=== PATIENT | female | born 1970 ===

== ENCOUNTER → 2020-07-24 10:49 | Outpatient (BNVA) | payer OTHER, SELFPAY | PROVIDERS: PCP Family Medicine; Referring Provider Family Medicine; Visit Provider Nurse Practitioner | DX: K31.9 Disease of stomach and duodenum, unspecified (principal); R10.11 Right upper quadrant pain; K37 Unspecified appendicitis; Z79.899 Other long term (current) drug therapy | CPT/HCPCS: 99213; Q3014 ==

== ENCOUNTER → 2021-02-01 13:05 | Outpatient (BNVA) | payer OTHER, SELFPAY | PROVIDERS: PCP Family Medicine; Visit Provider Nurse Practitioner | DX: R10.11 Right upper quadrant pain (principal); K37 Unspecified appendicitis; K31.9 Disease of stomach and duodenum, unspecified | CPT/HCPCS: 99212; Q3014 ==

== ENCOUNTER → 2021-02-19 13:12 | Outpatient (BNVA) | payer OTHER, SELFPAY | PROVIDERS: PCP Internal Medicine; Visit Provider Orthopaedic Surgery | DX: M17.0 Bilateral primary osteoarthritis of knee (principal) | CPT/HCPCS: Q3014 ==

== ENCOUNTER 2021-03-26 15:59 | Outpatient (REF) | payer OTHER, SELFPAY ==
--- NOTE | ~2021-03-26 | XR_ITS ---
EXAMINATION: XR BILATERAL KNEES CLINICAL INFORMATION: Bilateral knee pain. COMPARISON: 05/02/2020 TECHNIQUE: 4 views each knee. FINDINGS: Right Knee: There are tricompartmental degenerative changes involving the right knee with ojfoyqrp-ca-eifroe narrowing medially as well as in the patellofemoral compartment. Sclerosis and osteophytes are present. No fractures are seen. No joint effusion is seen. When comparison is made to the limited views obtained previously, findings appear similar. Left Knee: There are tricompartmental degenerative changes involving the left knee with kexdpqok-hj-dtqnkh narrowing medially as well as in the patellofemoral compartment. Sclerosis and osteophytes are present. No fractures are seen. A small left joint effusion is present. Again noted is a loose body posteriorly as well as possibly a loose body anteriorly between the patella and distal femur. The latter was not well appreciated on the prior study. XR/XR knee LT 4V IMPRESSION: Tricompartmental osteoarthritis both knees, left greater than right with small left effusion and left loose bodies.
--- NOTE | ~2021-03-26 | XR_ITS ---
EXAMINATION: XR BILATERAL KNEES CLINICAL INFORMATION: Bilateral knee pain. COMPARISON: 05/02/2020 TECHNIQUE: 4 views each knee. FINDINGS: Right Knee: There are tricompartmental degenerative changes involving the right knee with faeckqlh-lv-txkvov narrowing medially as well as in the patellofemoral compartment. Sclerosis and osteophytes are present. No fractures are seen. No joint effusion is seen. When comparison is made to the limited views obtained previously, findings appear similar. Left Knee: There are tricompartmental degenerative changes involving the left knee with qpacisoh-gx-apvfav narrowing medially as well as in the patellofemoral compartment. Sclerosis and osteophytes are present. No fractures are seen. A small left joint effusion is present. Again noted is a loose body posteriorly as well as possibly a loose body anteriorly between the patella and distal femur. The latter was not well appreciated on the prior study. XR/XR knee RT 4V IMPRESSION: Tricompartmental osteoarthritis both knees, left greater than right with small left effusion and left loose bodies.
== END 2021-03-26 16:00 | disposition home or self-care (01) ==
LOC: HO.XRAY 15:59
PROVIDERS: PCP Internal Medicine; Visit Provider Internal Medicine
DX: M25.561 Pain in right knee (principal); M25.562 Pain in left knee
CPT/HCPCS: 73564

== ENCOUNTER → 2021-05-29 12:24 | Outpatient (BNVA) | payer OTHER, SELFPAY | PROVIDERS: PCP Internal Medicine; Visit Provider Orthopaedic Surgery | DX: M17.0 Bilateral primary osteoarthritis of knee (principal) | CPT/HCPCS: 20610; 99212; J1040 ==

== ENCOUNTER → 2021-08-05 16:14 | Outpatient (BNVA) | payer OTHER, SELFPAY | PROVIDERS: PCP Internal Medicine; Visit Provider Nurse Practitioner ==

== ENCOUNTER 2022-04-01 10:42 | Emergency (ER) | payer OTHER, SELFPAY ==
[2022-04-01 10:51] VITALS: BP 191/86; PULSE 76; RESP 18; TEMP 36.6; O2SAT 100; BMI 33.0
--- NOTE | 2022-04-01 10:53 | ECG_ITS ---
Test Reason : HYPERTENSION Blood Pressure : / mmHG Vent. Rate : 074 BPM Atrial Rate : 074 BPM P-R Int : 152 ms QRS Dur : 088 ms QT Int : 424 ms P-R-T Axes : 042 -07 031 degrees QTc Int : 470 ms Normal sinus rhythm Moderate voltage criteria for LVH, may be normal variant ( R in aVL , [place] product ) Nonspecific ST and T wave abnormality Abnormal ECG When compared to the previous EKG of No significant changes seen Referred By: Generic ED Physician Electronically Signed By:SHIRAZ HENSON MD
[2022-04-01 11:16] LABS: MANUAL DIFF FLAG NO
[2022-04-01 11:22] LABS: Basophils Percent Auto 0.5 % (0-2); Eosinophils Absolute Auto 0.3 X10*3/uL (0.0-0.4); Eosinophils Percent Auto 3.9 % (0-4); Hemoglobin 7.4 g/dl (12.0-16.0); Imm Gran Abs Auto 0.02 X10*3/uL (0.00-0.03); Imm Gran Pct Auto 0.3 % (0.0-0.4); Lymphocytes Absolute Auto 2.4 X10*3/uL (1.2-4.9); Lymphocytes Percent Auto 30.7 % (20-40); Mean Corpuscular HGB Conc 29.6 g/dl (31.0-35.0); Mean Corpuscular Hemoglobin 22.1 pg (27.0-33.0); Mean Corpuscular Volume 74.6 fL (80.0-98.0); Mean Platelet Volume 10.5 fL (9.4-12.3); Monocytes Absolute Auto 0.6 X10*3/uL (0.1-1.2); Monocytes Percent Auto 7.7 % (2-11); Neutrophils Absolute Auto 4.5 x10*3/uL (2.0-8.3); Neutrophils Percent Auto 56.9 % (45-73); Platelet Count 446 X10*3/uL (160-400); Red Blood Count 3.35 X10*6/uL (4.20-5.50); Red Cell Distribution Width 18.6 % (11.0-16.0)
[2022-04-01 11:36] LABS: Anion Gap 12 (12-20); Blood Urea Nitrogen 10 mg/dL (9-16); Carbon Dioxide 24 mmol/L (22-29); Chloride 103 mmol/L (96-108); Creatinine Clr Calc Pharmacy 102.9; Estimated Glomerular Filt Rate > 60; Glucose Random 100 mg/dL (60-115); Potassium 3.7 mmol/L (3.3-5.1); Sodium 135 mmol/L (135-145)
[2022-04-01 11:41] VITALS: BP 189/99; PULSE 68; RESP 16; O2SAT 99
[2022-04-01 11:44] LABS: Troponin-I High Sensitivity < 3.5 ng/L (<3.5-17.0)
--- NOTE | 2022-04-01 11:45 | ED_ITS ---
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 Patient also is complaining of left neck pain that radiating down to left upper extremities with numbness and in a left 4th and 5th finger, declined any recent trauma to the neck or recent heavy lifting. Patient has been getting heavy menses reportedly, her hemoglobin was low when was checked by PCP yesterday (7), patient had slight lightheadedness, but no chest pain or shortness of breath. Patient stated that her menses stopped yesterday and she is not vaginally bleeding, patient was instructed by her PCP to follow-up with her OBGYN and started her on iron yesterday. Related Data Home Medications Medication Instructions Recorded Confirmed losartan 100 mg tablet 100 mg PO DAILY 07/21/20 acetaminophen 650 mg 1,300 mg PO Q8H PRN 07/24/20 tablet,extended release amlodipine 10 mg tablet 10 mg PO DAILY 07/24/20 ergocalciferol (vitamin D2) 1,250 0 mcg PO 07/24/20 mcg (50,000 unit) capsule multivitamin 1 cap PO DAILY 07/24/20 ferrous sulfate 325 mg (65 mg 325 mg PO BID 08/05/21 iron) tablet (FeroSul) nifedipine 30 mg tablet,extended 30 mg PO DAILY 08/05/21 release 24 hr Previous Rx's Medication Instructions Recorded omeprazole 40 mg capsule,delayed 40 mg PO DAILY 30 days #30 caps 08/05/21 release sennosides 8.6 mg capsule (senna) 17.2 mg PO BEDTIME constipation 30 08/05/21 days #60 caps Allergies Allergy/AdvReac Type Severity Reaction Status Date / Time No Known Allergies Allergy Verified 08/05/21 16:15 [No Known Allergies*] Review of Systems Review of Systems: All other systems are reviewed and are negative Constitutional: Reports as per HPI and Reports no additional constitutional complaints Eyes: Reports as per HPI and Reports no additional eye complaints Reports system reviewed and no additional complaints, except as documented Cardiovascular: Reports as per HPI and Reports no additional cardiovascular complaints Respiratory: Reports as per HPI and Reports no additional respiratory complaints Gastrointestinal: Reports as per HPI and Reports no additional gastrointestinal complaints Genitourinary: Reports no additional female genitourinary complaints Musculoskeletal: Reports no additional musculoskeletal complaints Skin/Breast: Reports system reviewed and no additional complaints, except as docu Psychiatric: Reports no additional psychiatric complaints Endocrine: Reports no additional endocrine complaints Hematologic/Lymphatic: Reports no additional hematologic/lymphatic complaints Allergic/Immunologic: Reports no additional allergic/immunologic complaints Reports system reviewed and no additional complaints, except as documented and Reports Abnormal speech present [facility] Past Medical History Medical History Appendicitis Gastropathy Right upper quadrant abdominal pain Surgical History History of section History of cholecystectomy Hx of tubal ligation Family History Family History Father No problems noted. Mother HTN (hypertension), benign Social History Social History Alcohol intake: never Patient Tobacco Use Status: Never used Tobacco Use of substances other than those prescribed or required for medical reasons: No Advance Directives: No Advance Directives Information Provided: No Patient : No Physical Exam ED Vital Signs: Vital Signs - 24 hr 04/01/22 10:51 04/01/22 11:41 Temperature 98 F Pulse Rate 76 68 Respiratory Rate 18 16 Blood Pressure 191/86 H 189/99 H Pulse Oximetry 100 99 Oxygen Delivery Method Room Air Room Air BMI result Body Mass Index 33.0 Vital signs have been reviewed as appeared to be correct. Blood pressure normal. Heart rate normal. Respiration rate normal. Temperature normal. Oxygen saturation normal. Appearance: Alert. Oriented X3. No acute distress. Head: Normal external exam. Normocephalic. Atraumatic. No [place] signs noted. No raccoon eyes noted Eyes: PERRLA. EOMI. Conjunctiva and sclera normal. Eyelids normal. ENT: TM's Normal. Pharynx normal. Uvula midline. Moist mucous membranes. No trismus noted. No drooling noted. No muffled voice noted. Neck: Normal inspection. Neck supple. FROM. No adenopathy. Thyroid Normal. No meningeal signs. No neck mass noted. CVS: Normal heart rate and rhythm. Heart sound normal. No murmurs noted. Pulses normal throughout. Respiratory: No respiratory distress. Painless inspiration. Breath sounds normal. No wheezes/rales/rhonchi noted. Chest nontender. No accessory muscle usage noted or decreased air movement noted. Abdomen: Soft and nontender. Bowel sounds normal in all 4 quadrants. No distention noted. No organomegaly noted. No visible injury noted. Back: No CVA tenderness. Full range of motion noted. Skin: Skin warm and dry. Normal skin color. Normal skin turgor. No rash es/lesions/lacerations noted. Extremities: No lower extremity edema. Extremities exhibit normal range of motion. Extremities nontender. Neuro: Oriented X 3. Cranial nerve exam: II-XII are grossly intact No motor deficit. No sensory deficit. Reflexes normal. Course Course Course Narrative: Assessment and plan. 51-year-old female with iron deficiency anemia secondary to vaginal bleeding, lele gregory reported that the vaginal bleed. Yesterday not bleeding today and she has been getting prolonged menses with heavy bleeding, patient declined GI bleeding or vomiting blood. Patient was instructed to follow-up with her PCP/gynaecological oncologist for serial CBC and further evaluation of her menorrhagia. Blood pressure now is 150/ 80. Medical Decision Making Lab Data Lab results reviewed: Yes I reviewed the patient's lab results. Result diagrams: 04/01/22 11:07 04/01/22 11:07 Labs: Lab Results 04/01/22 04/01/22 04/01/22 Range/Units 11:07 11:07 11:07 WBC 8.0 (4.8-10.8) X10*3/uL RBC 3.35 L (4.20-5.50) X10*6/uL Hgb 7.4 L (12.0-16.0) g/dl Hct 25.0 L (37.0-47.0) % MCV 74.6 L (80.0-98.0) fL MCH 22.1 L (27.0-33.0) pg MCHC 29.6 L (31.0-35.0) g/dl RDW 18.6 H (11.0-16.0) % Plt Count 446 H (160-400) X10*3/uL MPV 10.5 (9.4-12.3) fL Immature Gran % (Auto) 0.3 (0.0-0.4) % Neut % (Auto) 56.9 (45-73) % Lymph % (Auto) 30.7 (20-40) % [place] % (Auto) 7.7 (2-11) % Eos % (Auto) 3.9 (0-4) % Baso % (Auto) 0.5 (0-2) % Lymph # (Auto) 2.4 (1.2-4.9) X10*3/uL [place] # (Auto) 0.6 (0.1-1.2) X10*3/uL Eos # (Auto) 0.3 (0.0-0.4) X10*3/uL Baso # (Auto) 0.0 (0.0-0.2) X10*3/uL Abs Immat Gran (auto) 0.02 (0.00-0.03) X10*3/uL Absolute Neuts (auto) 4.5 (2.0-8.3) x10*3/uL Absolute Nucleated RBC 0.000 (0.0-0.012) X10*3/uL Nucleated RBC % (auto) 0.0 (0.0-0.2) /100WBC Sodium 135 (135-145) mmol/L Potassium 3.7 (3.3-5.1) mmol/L Chloride 103 (96-108) mmol/L Carbon Dioxide 24 (22-29) mmol/L Anion Gap 12 (12-20) BUN 10 (9-16) mg/dL Creatinine 0.76 (0.5-1.4) mg/dL Estim Creat Clear Calc 102.9 Estimated GFR > 60 Random Glucose 100 (60-115) mg/dL Calcium 9.0 (8.4-10.2) mg/dL Troponin I High Sens < 3.5 (<3.5-17.0) ng/L ECG Data Attestation: I personally reviewed and interpreted this ECG as follows: Interpretation: Normal sinus rhythm at 74 beats per minutes, LVH, left axis deviation, normal intervals, nonspecific ST-T wave changes. Discharge Plan Discharge Clinical Impression: Hypertension, Iron deficiency anemia Patient Disposition: Home, Self-Care Instructions: Anemia (ED) Additional Instructions: Call your OBGYN and make an appointment her regard to heavy menses. Prescriptions: No Action losartan 100 mg tablet 100 mg PO DAILY amlodipine 10 mg tablet 10 mg PO DAILY ergocalciferol (vitamin D2) 1,250 mcg (50,000 unit) capsule 0 mcg PO acetaminophen 650 mg tablet extended release 1,300 mg PO Q8H PRN multivitamin Capsule 1 cap PO DAILY ferrous sulfate [FeroSul] 325 mg (65 mg iron) tablet 325 mg PO BID nifedipine 30 mg tablet extended release 24hr 30 mg PO DAILY omeprazole 40 mg capsule,delayed release(DR/EC) 40 mg PO DAILY 30 Days Qty: 30 3RF senna 8.6 mg capsule 17.2 mg PO BEDTIME 30 Days Qty: 60 6RF Referrals: Robert Mccollum MD [Primary Care Provider] - Stand Alone Forms: Work/School Release
--- NOTE | 2022-04-01 11:49 | PC.NURSE ---
Patient c/o neck pain that radiates down L arm and causes some numbness in the first 2 fingers. 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 Pt also with hx hypertension, on antihypertensives, BP typically maintained around 150 systolic. PT alert, oriented, moving all extremities well. Ambulate in from triage without difficulty.
[2022-04-01] MEDS: Ibuprofen 600 MG TABLET PO (11:56)
[2022-04-01] MEDS: amLODIPine Besylate 5 MG TABLET PO (11:57)
[2022-04-01 12:50] VITALS: BP 151/80; PULSE 58; RESP 16; O2SAT 98
[2022-04-01 13:31] VITALS: BP 135/75; PULSE 52; RESP 16; O2SAT 98
== END 2022-04-01 14:04 | disposition home or self-care (01) ==
PROVIDERS: Emergency Provider Emergency Medicine; PCP Internal Medicine
DX: I10 Essential (primary) hypertension (principal); D50.9 Iron deficiency anemia, unspecified; Z79.899 Other long term (current) drug therapy
CPT/HCPCS: 36415; 80048; 84484; 85025; 93005; 99283; 99284

== ENCOUNTER 2022-06-16 07:11 | Outpatient (REF) | payer OTHER, SELFPAY ==
--- NOTE | ~2022-06-16 | XR_ITS ---
EXAMINATION: XR KNEE, BILATERAL XR KNEE STANDING, BILATERAL CLINICAL INFORMATION: Pain. COMPARISON: Previous x-ray March 2021. TECHNIQUE: 3 views of each knee. FINDINGS: RIGHT: There is mild varus angulation and slight medial subluxation of the distal femur with respect to the proximal tibia. Bone alignment is otherwise normal. No fracture or dislocation is seen. There is arthritis at the medial femorotibial and patellofemoral joints. There is a small joint effusion. LEFT: There is mild varus angulation. There is mild medial subluxation of the distal femur with respect to the proximal tibia. Bone alignment is otherwise normal. No fracture or dislocation is seen. There is arthritis at the medial femorotibial and patellofemoral joints. There is a small joint effusion. XR/XR knee standing BI IMPRESSION: Bilateral arthritis.
--- NOTE | ~2022-06-16 | XR_ITS ---
EXAMINATION: XR KNEE, BILATERAL XR KNEE STANDING, BILATERAL CLINICAL INFORMATION: Pain. COMPARISON: Previous x-ray March 2021. TECHNIQUE: 3 views of each knee. FINDINGS: RIGHT: There is mild varus angulation and slight medial subluxation of the distal femur with respect to the proximal tibia. Bone alignment is otherwise normal. No fracture or dislocation is seen. There is arthritis at the medial femorotibial and patellofemoral joints. There is a small joint effusion. LEFT: There is mild varus angulation. There is mild medial subluxation of the distal femur with respect to the proximal tibia. Bone alignment is otherwise normal. No fracture or dislocation is seen. There is arthritis at the medial femorotibial and patellofemoral joints. There is a small joint effusion. XR/XR knee RT 2V IMPRESSION: Bilateral arthritis.
--- NOTE | ~2022-06-16 | XR_ITS ---
EXAMINATION: XR KNEE, BILATERAL XR KNEE STANDING, BILATERAL CLINICAL INFORMATION: Pain. COMPARISON: Previous x-ray March 2021. TECHNIQUE: 3 views of each knee. FINDINGS: RIGHT: There is mild varus angulation and slight medial subluxation of the distal femur with respect to the proximal tibia. Bone alignment is otherwise normal. No fracture or dislocation is seen. There is arthritis at the medial femorotibial and patellofemoral joints. There is a small joint effusion. LEFT: There is mild varus angulation. There is mild medial subluxation of the distal femur with respect to the proximal tibia. Bone alignment is otherwise normal. No fracture or dislocation is seen. There is arthritis at the medial femorotibial and patellofemoral joints. There is a small joint effusion. XR/XR knee LT 2V IMPRESSION: Bilateral arthritis.
== END 2022-06-16 07:12 | disposition home or self-care (01) ==
LOC: HO.HOSX 07:11
PROVIDERS: Visit Provider Physician Assistant
DX: M17.0 Bilateral primary osteoarthritis of knee (principal)
CPT/HCPCS: 20610; 73560; 73565; 99212; J1040

== ENCOUNTER 2022-10-03 10:16 | Outpatient (REF) | payer OTHER, SELFPAY | END 2022-10-03 10:17 | disposition home or self-care (01) | LOC: HO.MAMMO 10:16 | PROVIDERS: PCP Internal Medicine; Visit Provider Internal Medicine | DX: Z12.31 Encounter for screening mammogram for malignant neoplasm of breast (principal) | CPT/HCPCS: 77063; 77067 ==

== ENCOUNTER → 2023-01-09 09:31 | Outpatient (BNVA) | payer OTHER, SELFPAY | PROVIDERS: PCP Internal Medicine; Visit Provider Physician Assistant | DX: M17.0 Bilateral primary osteoarthritis of knee (principal) | CPT/HCPCS: 20610; 99212; J1040 ==

== ENCOUNTER 2023-01-23 12:22 | Outpatient (REF) | payer OTHER, SELFPAY ==
--- NOTE | ~2023-01-23 | US_ITS ---
EXAMINATION: US RETROPERITONEAL LIMITED (RENAL ONLY) CLINICAL INFORMATION: Hypertension. COMPARISON: CT abdomen and pelvis with contrast dated 03/08/2020. TECHNIQUE: Real-time imaging of the kidneys. FINDINGS: RIGHT KIDNEY: 12.1 x 6.5 x 6.0 cm (SAG x AP x TRV). The kidney is normal in size, contour, and echogenicity. Renal cortical thickness is normal. No calculi or focal parenchymal lesions. No hydronephrosis. LEFT KIDNEY: 11.8 x 5.2 x 5.1 cm (SAG x AP x TRV). The kidney is normal in size, contour, and echogenicity. Renal cortical thickness is normal. No calculi or focal parenchymal lesions. No hydronephrosis. US/US renal BI IMPRESSION: Normal renal ultrasound.
== END 2023-01-23 12:23 | disposition home or self-care (01) ==
LOC: HO.US 12:22
PROVIDERS: PCP Internal Medicine; Visit Provider Internal Medicine
DX: I10 Essential (primary) hypertension (principal); D50.0 Iron deficiency anemia secondary to blood loss (chronic)
CPT/HCPCS: 76775

== ENCOUNTER → 2023-03-10 08:24 | Outpatient (BNVA) | payer OTHER, SELFPAY | PROVIDERS: PCP Internal Medicine; Visit Provider Physician Assistant | DX: M17.0 Bilateral primary osteoarthritis of knee (principal) | CPT/HCPCS: 99212 ==

== ENCOUNTER 2023-03-13 09:09 | Outpatient (REF) | payer OTHER, SELFPAY ==
--- NOTE | ~2023-03-13 | US_ITS ---
EXAMINATION: US RETROPERITONEAL LIMITED (RENAL ONLY) CLINICAL INFORMATION: Uncontrolled hypertension. COMPARISON: None available. TECHNIQUE: Routine grayscale and color Doppler imaging of kidneys is performed. FINDINGS: RIGHT KIDNEY: 12.1 x 5.2 x 5.9 cm (SAG x AP x TRV). The kidney is normal in size, contour, and echogenicity. Renal cortical thickness is normal. No calculi or focal parenchymal lesions. No hydronephrosis. LEFT KIDNEY: 11.9 x 6.1 x 5.1 cm (SAG x AP x TRV). The kidney is normal in size, contour, and echogenicity. Renal cortical thickness is normal. No calculi or focal parenchymal lesions. No hydronephrosis. DOPPLER IMAGING: RIGHT KIDNEY: The renal artery velocity proximal measures 10 3 cm/s, midsegment measures 83 cm/s and distal segment measures 76 cm/s. The average resistive index is 0.69. The RAR cannot be calculated as the aortic velocity is 106 cm/s and cannot be used to calculate RAR. LEFT KIDNEY: Left renal artery velocity proximal measures 87 cm/s, midsegment measures 10 3 cm/second and distal segment measures 69 cm/s. Average resistive index measures 0.68. Renal aortic ratio cannot be calculated. US/US renal doppler IMPRESSION: Normal renal ultrasound. Normal renal Doppler exam with no evidence of renal artery stenosis in either kidney based on renal Doppler values.
--- NOTE | ~2023-03-13 | US_ITS ---
EXAMINATION: US RETROPERITONEAL LIMITED (RENAL ONLY) CLINICAL INFORMATION: Uncontrolled hypertension. COMPARISON: None available. TECHNIQUE: Routine grayscale and color Doppler imaging of kidneys is performed. FINDINGS: RIGHT KIDNEY: 12.1 x 5.2 x 5.9 cm (SAG x AP x TRV). The kidney is normal in size, contour, and echogenicity. Renal cortical thickness is normal. No calculi or focal parenchymal lesions. No hydronephrosis. LEFT KIDNEY: 11.9 x 6.1 x 5.1 cm (SAG x AP x TRV). The kidney is normal in size, contour, and echogenicity. Renal cortical thickness is normal. No calculi or focal parenchymal lesions. No hydronephrosis. DOPPLER IMAGING: RIGHT KIDNEY: The renal artery velocity proximal measures 10 3 cm/s, midsegment measures 83 cm/s and distal segment measures 76 cm/s. The average resistive index is 0.69. The RAR cannot be calculated as the aortic velocity is 106 cm/s and cannot be used to calculate RAR. LEFT KIDNEY: Left renal artery velocity proximal measures 87 cm/s, midsegment measures 10 3 cm/second and distal segment measures 69 cm/s. Average resistive index measures 0.68. Renal aortic ratio cannot be calculated. US/US renal BI IMPRESSION: Normal renal ultrasound. Normal renal Doppler exam with no evidence of renal artery stenosis in either kidney based on renal Doppler values.
== END 2023-03-13 09:10 | disposition home or self-care (01) ==
LOC: HO.US 09:09
PROVIDERS: PCP Internal Medicine; Visit Provider Internal Medicine
DX: I10 Essential (primary) hypertension (principal)
CPT/HCPCS: 76775; 93975

== ENCOUNTER 2023-08-04 08:06 | Outpatient (AMB) | payer OTHER, SELFPAY ==
[2023-08-04 08:11] VITALS: BMI 33.1
--- NOTE | 2023-08-04 08:11 | A.OFFVIS_ITS ---
Intake Vital Signs 08/04/23 08:11 Height 5 ft 6 in Weight 205 lb BMI 33.1 Intake Visit Reasons: ov- osteoarthritis of knees, bilateral Intake Note: Susan is a 52 year old female who presents today for a follow up for her bilateral knee pain. Patient reports her knee brace is giving her mild relief. She states that she would like to get bilateral injections. Patient also informed me that PT is also giving her mild relief. Allergies No Known Allergies [No Known Allergies*] Allergy (Verified 08/04/23 08:20) HPI ov- osteoarthritis of knees, bilateral HPI Details 53-year-old female, who is [place] speak ing, presents in the office today for a follow up of bilateral knee pain. The patient had a cortisone injection on 01/09/2023 in her bilateral knees. She states the knee brace and physical therapy gave her great relief. She would also like to repeat the cortisone injections while in the office today. [facility], [facility] Medical History Appendicitis Gastropathy History of high blood pressure Right upper quadrant abdominal pain Surgical History History of section History of cholecystectomy Hx of colonoscopy Hx of tubal ligation Family History Father No problems noted. Mother HTN (hypertension), benign Social History Alcohol intake: never Patient Tobacco Use Status: Never used Tobacco Review of Systems Const All systems reviewed & are unremarkable except as noted in HPI and below Physical Exam Vital Signs: BMI result Body Mass Index 33.1 Const General: cooperative, healthy appearing and no acute distress Resp Effort & Inspection: normal respiratory effort and able to speak in complete sentences Cardio Rate: regular rate Peripheral pulses: Peripheral pulses 2+ throughout GI Palpation (GI): Soft to palpation Skin Lesions: no lesions Rashes: no rashes Extrem Other: Bilateral knees: Normal to inspection. No ecchymosis, erythema, or joint effusion. No tenderness to palpation to the medial or lateral joint lines. Full knee extension and flexion. Crepitus felt with ROM. NVI. Office Procedures Joint Injection/Drain Joint Injection/Drain Primary Site: right knee Secondary Site: left knee Prep: site was prepped using aseptic technique, ethochloride spray was applied and injection warnings given Injected: 80 mg of, DepoMedrol, with 8 mL of (2% plain lido ) and in the joint Approach Used: anterolateral Procedure: The patient tolerated the procedure well, but had some pain with the injection and there was some relief with the local anesthesia Coding 72491 - Large joint Procedure code (CPT) selection complete Results Reviewed Results Reviewed: 08/04/23 08:21 Lidocaine HCl 2 % MPF [Xylocaine 2 % MPF] 5 ml .ROUTE .STK-MED ONE methylPREDNISolone acetate [DEPO-MedroL] 80 mg .ROUTE .STK-MED ONE Assessment & Plan Assessment & Plan (1) Primary osteoarthritis of knees, bilateral: Code(s): M17.0 - Bilateral primary osteoarthritis of knee Plan Ms. Chino Matos is a 53-year-old female, who is Korean speaking, presents in the office today for a follow up of bilateral knee pain. The patient had a cortisone injection on 01/09/2023 in her bilateral knees. She states the knee brace and physical therapy gave her great relief. She would also like to repeat the cortisone injections while in the office today. I discussed the possibility of a future total knee arthroplasty. However, she states the cortisone injections give her relief therefore, she would like to defer at this time. The patient was offered a cortisone injection in the bilateral knees with 80 mg of DepoMedrol. The patient was explained the risk, benefits, and alternatives to receiving this injection. After receiving consent for the injection, the patient had the procedure done while in office today. The patient tolerated the procedure well with no complications. Follow up will be PRN, or sooner if needed. X-rays of the bilateral knees obtained while in the office today and reviewed by me, Mireille Lara PA-C, revealed no acute fracture or dislocation. Bilateral knee osteoarthritis. Orders: Orders XR knee RT 2V Today M25.569 - Pain in unspecified knee XR knee standing BI Today M25.569 - Pain in unspecified knee XR knee LT 2V Today M25.569 - Pain in unspecified knee Patient Instructions: Scribed for Mireille Lara PA-C by Estee Latif medical anthropology director, on 08/04/2023 at 8:08 am, EST. Coding Level of Care Code Est Pt Level 3 (86419) Diagnoses Primary osteoarthritis of knees, bilateral M17.0 CPT Codes Coding - 52285 Large joint: 85971 - Large joint ([id number])
== END 2023-08-04 08:36 | disposition home or self-care (01) ==
PROVIDERS: PCP Internal Medicine; Visit Provider Physician Assistant
DX: M17.0 Bilateral primary osteoarthritis of knee (principal)
CPT/HCPCS: 20610; 99213

== ENCOUNTER 2023-08-04 11:07 | Outpatient (REF) | payer OTHER, SELFPAY ==
--- NOTE | ~2023-08-04 | XR_ITS ---
EXAMINATION: XR KNEE, BILATERAL XR KNEE STANDING, BILATERAL CLINICAL INFORMATION: Pain. COMPARISON: 06/16/2022 TECHNIQUE: Standing view of bilateral knees. Lateral and sunrise views of the chest. FINDINGS: RIGHT KNEE: Redemonstration of moderate to marked medial joint space loss, medial marginal osteophytes, mild varus angulation and slight medial subluxation of the distal femur with respect to the proximal tibia. Redemonstration of degenerative changes in the patellofemoral joint with hypertrophic change. Small lateral marginal osteophytes. Small joint effusion. LEFT KNEE: Redemonstration of moderate to marked medial joint space loss, medial marginal osteophytes, mild varus angulation and slight medial subluxation of the distal femur with respect to the proximal tibia. Redemonstration of degenerative changes in the patellofemoral joint with hypertrophic change. Small lateral marginal osteophytes. Trace joint effusion. XR/XR knee LT 2V IMPRESSION: Bilateral degenerative changes.
--- NOTE | ~2023-08-04 | XR_ITS ---
EXAMINATION: XR KNEE, BILATERAL XR KNEE STANDING, BILATERAL CLINICAL INFORMATION: Pain. COMPARISON: 06/16/2022 TECHNIQUE: Standing view of bilateral knees. Lateral and sunrise views of the chest. FINDINGS: RIGHT KNEE: Redemonstration of moderate to marked medial joint space loss, medial marginal osteophytes, mild varus angulation and slight medial subluxation of the distal femur with respect to the proximal tibia. Redemonstration of degenerative changes in the patellofemoral joint with hypertrophic change. Small lateral marginal osteophytes. Small joint effusion. LEFT KNEE: Redemonstration of moderate to marked medial joint space loss, medial marginal osteophytes, mild varus angulation and slight medial subluxation of the distal femur with respect to the proximal tibia. Redemonstration of degenerative changes in the patellofemoral joint with hypertrophic change. Small lateral marginal osteophytes. Trace joint effusion. XR/XR knee standing BI IMPRESSION: Bilateral degenerative changes.
--- NOTE | ~2023-08-04 | XR_ITS ---
EXAMINATION: XR KNEE, BILATERAL XR KNEE STANDING, BILATERAL CLINICAL INFORMATION: Pain. COMPARISON: 06/16/2022 TECHNIQUE: Standing view of bilateral knees. Lateral and sunrise views of the chest. FINDINGS: RIGHT KNEE: Redemonstration of moderate to marked medial joint space loss, medial marginal osteophytes, mild varus angulation and slight medial subluxation of the distal femur with respect to the proximal tibia. Redemonstration of degenerative changes in the patellofemoral joint with hypertrophic change. Small lateral marginal osteophytes. Small joint effusion. LEFT KNEE: Redemonstration of moderate to marked medial joint space loss, medial marginal osteophytes, mild varus angulation and slight medial subluxation of the distal femur with respect to the proximal tibia. Redemonstration of degenerative changes in the patellofemoral joint with hypertrophic change. Small lateral marginal osteophytes. Trace joint effusion. XR/XR knee RT 2V IMPRESSION: Bilateral degenerative changes.
== END 2023-08-04 11:08 | disposition home or self-care (01) ==
LOC: HO.HOSX 11:07
PROVIDERS: Visit Provider Physician Assistant
DX: M17.0 Bilateral primary osteoarthritis of knee (principal)
CPT/HCPCS: 20610; 73560; 73565; 99212; J1040

== ENCOUNTER → 2023-08-11 11:15 | Outpatient (BNV) | payer OTHER, SELFPAY | PROVIDERS: PCP Internal Medicine; Visit Provider Internal Medicine | DX: D50.9 Iron deficiency anemia, unspecified (principal) | CPT/HCPCS: 99204 ==

== ENCOUNTER 2024-01-11 09:56 | Outpatient (REF) | payer OTHER, SELFPAY ==
[2024-01-11 15:14] LABS: Alanine Aminotransferase 14 U/L (0-31); Albumin Level 4.1 g/dL (3.5-5.0); Alkaline Phosphatase 72 U/L (39-117); Anion Gap 12 (12-20); Aspartate Amino Transferase 14 U/L (5-31); Bilirubin Total 0.3 mg/dL (0.0-1.0); Blood Urea Nitrogen 12 mg/dL (9-16); Calcium 9.1 mg/dL (8.4-10.2); Carbon Dioxide 25 mmol/L (22-29); Chloride 104 mmol/L (96-108); Cholesterol 124 mg/dL (<200); Estimated Glomerular Filt Rate > 60; Glucose Random 64 mg/dL (60-115); HDL Cholesterol 37 mg/dL (>40); LDL Cholesterol Calculated 67 mg/dL (<100); Potassium 4.2 mmol/L (3.3-5.1); Sodium 137 mmol/L (135-145); Total Protein 7.1 g/dL (6.5-8.0); Triglycerides 100 mg/dL (<150)
== END 2024-01-11 09:57 | disposition home or self-care (01) ==
LOC: HO.CHCLDS 09:56
PROVIDERS: Visit Provider Internal Medicine
DX: I10 Essential (primary) hypertension (principal)
CPT/HCPCS: 36415; 80053; 80061

== ENCOUNTER 2024-01-14 11:33 | Outpatient (AMB) | payer OTHER, SELFPAY ==
--- NOTE | 2024-01-14 11:56 | MHC.OFFVIS ---
Intake Vital Signs 01/14/24 11:57 Height 5 ft 5 in Weight 222 lb BMI 36.9 Intake Visit Reasons: Bilateral Cortisone knee inj, last inj 08/04/23 Intake Note: Susan is a 52 year old female who presents today for a follow up for her bilateral knee OA, last injections 08/04/23. Patient reports her last injection gave her about a month of relief. She states that she would like to repeat and see if they can help. Allergies No Known Allergies [No Known Allergies*] Allergy (Verified 01/14/24 12:07) HPI Bilateral Cortisone knee inj, last inj 08/04/23 HPI Details 53-year-old female, who is Sammarinese speaking, presents in the office today for a follow up of bilateral knee osteoarthritis. I last saw the patient in the office on 08/04/2024. At this time she was given bilateral knee cortisone injections. [facility], LAT[facility] Medical History Appendicitis Gastropathy History of high blood pressure Right upper quadrant abdominal pain Surgical History History of section History of cholecystectomy Hx of colonoscopy Hx of tubal ligation Family History Father No problems noted. Mother HTN (hypertension), benign Social History Alcohol intake: never Patient Tobacco Use Status: Never used Tobacco Review of Systems Const All systems reviewed & are unremarkable except as noted in HPI and below Physical Exam Vital Signs: BMI result Body Mass Index 36.9 Const General: cooperative, healthy appearing and no acute distress Resp Effort & Inspection: normal respiratory effort and able to speak in complete sentences Cardio Rate: regular rate Peripheral pulses: Peripheral pulses 2+ throughout GI Palpation (GI): Soft to palpation Skin Lesions: no lesions Rashes: no rashes Extrem Other: Bilateral knees: Normal to inspection. No ecchymosis, erythema, or joint effusion. No tenderness to palpation to the medial or lateral joint lines. Full knee extension and flexion. Crepitus felt with ROM. NVI. Office Procedures Joint Injection/Drain Joint Injection/Drain Primary Site: right knee Secondary Site: left knee Prep: site was prepped using aseptic technique, ethochloride spray was applied and injection warnings given Injected: 80 mg of, DepoMedrol, with 8 mL of (2% plain lido ) and in the joint Procedure: The patient tolerated the procedure well, but had some pain with the injection and there was some relief with the local anesthesia Coding 55471 - Large joint Procedure code (CPT) selection complete Assessment & Plan Assessment & Plan (1) Primary osteoarthritis of knees, bilateral: Code(s): M17.0 - Bilateral primary osteoarthritis of knee Plan Ms. Chino Matos is a 53-year-old female, who is Sammarinese speaking, presents in the office today for a follow up of bilateral knee osteoarthritis. I last saw the patient in the office on 08/04/2024. At this time she was given bilateral knee cortisone injections. The patient was offered a cortisone injection in the bilateral knees with 80 mg of DepoMedrol. The patient was explained the risk, benefits, and alternatives to receiving this injection. After receiving consent for the injection, the patient had the procedure done while in office today. The patient tolerated the procedure well with no complications. Follow up will be PRN, or sooner if needed. Patient Instructions: Scribed by Estee Latif medical records analyst, for Mireille Lara PA-C on 01/14/2024 at 11:34 am, EST. Coding Level of Care Code Est Pt Level 3 (05443) Diagnoses Primary osteoarthritis of knees, bilateral M17.0 CPT Codes Coding - 56545 Large joint: 62685 - Large joint ([id number])
[2024-01-14 11:57] VITALS: BMI 36.9
== END 2024-01-14 12:09 | disposition home or self-care (01) ==
PROVIDERS: PCP Internal Medicine; Visit Provider Physician Assistant
DX: M17.0 Bilateral primary osteoarthritis of knee (principal)
CPT/HCPCS: 20610; 99213

== ENCOUNTER → 2024-01-14 11:33 | Outpatient (BNVA) | payer OTHER, SELFPAY | PROVIDERS: PCP Internal Medicine; Visit Provider Physician Assistant | DX: M17.0 Bilateral primary osteoarthritis of knee (principal) | CPT/HCPCS: 20610; 99212; J1040 ==

== ENCOUNTER 2024-02-09 09:50 | Outpatient (REF) | payer OTHER, SELFPAY ==
--- NOTE | ~2024-02-09 | MM_ITS ---
EXAMINATION: MM SCREENING DIGITAL BREAST TOMOSYNTHESIS, BILATERAL CLINICAL INFORMATION: Screening. Asymptomatic. History of 2 separate benign biopsies right breast yielding fibroadenoma, and benign biopsy left sided oval circumscribed mass. COMPARISON: Mammography: 10/03/2022, 12/01/2018, 11/02/2018, and 10/09/2018 ([place]). TECHNIQUE: Digital breast tomosynthesis is performed in both the craniocaudal and mediolateral oblique views along with computer-aided detection (CAD). Synthesized 2D images are generated from the tomosynthesis. FINDINGS: The breasts are extremely dense, which lowers the sensitivity of mammography (ACR BI-RADS breast composition Category d). Within the left breast, there is an oval circumscribed large mass measuring up to 5 x 4 cm with both fat and soft tissue density, and biopsy clip present in the posterolateral margin, findings most consistent with a benign hamartoma. Group of calcifications in the posterior lateral right breast along the nipple line on the right MLO again noted, largely unchanged from 2018 and the 10:00 position of the right breast. Prior ultrasound-guided biopsy which shows these have likely been sampled and were consistent with dystrophic fibroadenomatoid calcifications. Biopsy clip present right breast upper inner quadrant, posterior one third, relating to benign fibroadenoma. Biopsy clip superior right breast, also related to benign fibroadenoma. There are large dystrophic calcifications in the anterior right breast. There are stable small oval circumscribed masses in both breasts, most likely cysts and/or fibroadenomas. Prominent lymph nodes noted in the both axilla, also stable. MM/MM tomosynthesis screening BI IMPRESSION: Stable appearance of both breasts with numerous stable benign findings as discussed above. No findings suspicious for malignancy. ASSESSMENT: BI-RADS BI-RADS 2 - Benign Findings RECOMMENDATION: Routine annual mammography screening. 1 year F/U This examination should not preclude the clinical evaluation of a suspicious palpable abnormality. This patient's information was entered into a reminder system with a target due date for their next mammogram.
== END 2024-02-09 09:51 | disposition home or self-care (01) ==
LOC: HO.MAMMO 09:50
PROVIDERS: PCP Internal Medicine; Visit Provider Internal Medicine
DX: Z12.31 Encounter for screening mammogram for malignant neoplasm of breast (principal)
CPT/HCPCS: 77063; 77067

== ENCOUNTER → 2024-02-09 10:15 | Outpatient (BNV) | payer OTHER, SELFPAY | PROVIDERS: PCP Internal Medicine; Visit Provider Radiology Diagnostic Radiology | DX: Z12.31 Encounter for screening mammogram for malignant neoplasm of breast (principal) | CPT/HCPCS: 77063; 77067 ==

== ENCOUNTER 2024-04-15 09:39 | Outpatient (AMB) | payer OTHER, SELFPAY ==
--- NOTE | 2024-04-15 09:48 | A.OFFVIS_ITS ---
Intake Visit Reasons: INJ-B/L Cortisone knee inj, last inj 01/14/24 Intake Note: Susan is a 52 year old female who presents today for a repeat injections for her bilateral knee OA, last injections 01/14/24. Patient reports her last injection gave her about 3 weeks of relief. Patient has an appointment on 04/18 with [facility]. Allergies No Known Allergies [No Known Allergies*] Allergy (Verified 01/14/24 12:07) HPI HPI INJ-B/L Cortisone knee inj, last inj 01/14/24: Details: 53-year-old female, who is Colombian speaking, presents in the office today for a follow-up of bilateral knee osteoarthritis. I last saw the patient in the office on 01/14/2024 when she received cortisone injections in the bilateral knees. ? ? While in the office today, the patient reports the cortisone injections in the bilateral knees gave her about three weeks of relief. She also confirms having an appointment on 04/18/[address] Goss to be evaluated for bilateral knee pain.? PFSH Medical History Appendicitis Gastropathy History of high blood pressure Right upper quadrant abdominal pain Surgical History History of section History of cholecystectomy Hx of colonoscopy Hx of tubal ligation Family History Father No problems noted. Mother HTN (hypertension), benign Social History Alcohol intake: never Patient Tobacco Use Status: Never used Tobacco Review of Systems Const All systems reviewed & are unremarkable except as noted in HPI and below Physical Exam Const General: cooperative, healthy appearing and no acute distress Resp Effort & Inspection: normal respiratory effort and able to speak in complete sentences Cardio Rate: regular rate Peripheral pulses: Peripheral pulses 2+ throughout GI Palpation (GI): Soft to palpation Skin Lesions: no lesions Rashes: no rashes Extrem Other: Bilateral knees: Normal to inspection. No ecchymosis, erythema, or joint effusion. No tenderness to palpation to the medial or lateral joint lines. Full knee extension and flexion. Crepitus felt with ROM. NVI. Office Procedures Joint Injection/Drain Joint Injection/Drain Primary Site: right knee Secondary Site: left knee Prep: site was prepped using aseptic technique, ethochloride spray was applied and injection warnings given Injected: 80 mg of, DepoMedrol and with 8 mL of (2% plain lido ) Approach Used: anterolateral Procedure: The patient tolerated the procedure well, but had some pain with the injection and there was some relief with the local anesthesia Coding - Large joint Procedure code (CPT) selection complete Assessment & Plan Assessment & Plan (1) Primary osteoarthritis of knees, bilateral: Code(s): M17.0 - Bilateral primary osteoarthritis of knee Category: Medical Plan Ms. Chino Matos is a 53-year-old female, who is Colombian speaking, presents in the office today for a follow-up of bilateral knee osteoarthritis. I last saw the patient in the office on 01/14/2024 when she received cortisone injections in the bilateral knees. ? While in the office today, the patient reports the cortisone injections in the bilateral knees gave her about three weeks of relief. She also confirms having an appointment on 04/18/[address] Goss to be evaluated for bilateral knee pain.? The patient was offered cortisone injections in the bilateral knees with 80 mg of DepoMedrol. The patient was explained the risk, benefits, and alternatives to receiving this injection. After receiving consent for the injection, the patient had the procedure done while in the office today. The patient tolerated the procedure well with no complications. ? ? The patient is scheduled to be evaluated by Dr. Goss on Thursday04/18/2024. This appointment is?to discuss if she is possible a surgical candidate for a total knee arthroplasty. ? ? Current BMI is 36.9 as of 01/14/2024.? There is no A1c on record in the EHR.? ? Follow-up will be with Dr. Goss on 04/18/2024, or sooner if needed. ? Patient Instructions: Scribed by Estee Latif emergency medical service manager, for Mireille Lara PA-C on 04/15/2024 at 9:45 am, EST.? Coding Level of Care Code Est Pt Level 3 (85181) Diagnoses Primary osteoarthritis of knees, bilateral M17.0 CPT Codes Coding - Large joint: 79717 - Large joint ([id number])
== END 2024-04-15 10:01 | disposition home or self-care (01) ==
PROVIDERS: PCP Internal Medicine; Visit Provider Physician Assistant
DX: M17.0 Bilateral primary osteoarthritis of knee (principal)
CPT/HCPCS: 20610; 99213

== ENCOUNTER → 2024-04-15 09:39 | Outpatient (BNVA) | payer OTHER, SELFPAY | PROVIDERS: PCP Internal Medicine; Visit Provider Physician Assistant | DX: M17.0 Bilateral primary osteoarthritis of knee (principal) | CPT/HCPCS: 20610; 99212; J1010 ==

== ENCOUNTER 2024-04-18 11:07 | Outpatient (AMB) | payer OTHER, SELFPAY ==
--- NOTE | 2024-04-18 11:17 | A.OFFVIS_ITS ---
Vital Signs 04/18/24 11:19 Height 5 ft 5 in Weight 222 lb BMI 36.9 Intake Visit Reasons: OV-daria knee pain, discuss sx Intake Note: Susan is a 53 year old female who presents today for a follow up of her bilateral knee OA. She expresses equal pain in both the right and left knee, one is not greater than the other. Patient would like to discuss surgery. Allergies No Known Allergies [No Known Allergies*] Allergy (Verified 04/18/24 11:19) HPI HPI OV-daria knee pain, discuss sx: Details: Susan is a 53 year old female who presents today for a follow up of her bilateral knee OA. She expresses equal pain in both the right and left knee, one is not greater than the other. Patient would like to discuss surgery. She is unable to ambulate comfortably and has been like this for three years. She has tried NSAIDs, activity modification, PT and injections. She feels that nothing has been helpful. [facility] Medical History History of high blood pressure Right upper quadrant abdominal pain Appendicitis Gastropathy Surgical History Hx of colonoscopy Hx of tubal ligation History of cholecystectomy History of section Family History Father No problems noted. Mother HTN (hypertension), benign Social History Alcohol intake: never Patient Tobacco Use Status: Never used Tobacco Current occupational status: employed Physical Exam Vital Signs: BMI result Body Mass Index 36.9 Const General: cooperative, healthy appearing and no acute distress Resp Effort & Inspection: normal respiratory effort and able to speak in complete sentences Cardio Rate: regular rate Peripheral pulses: Peripheral pulses 2+ throughout GI Palpation (GI): Soft to palpation Skin Lesions: no lesions Rashes: no rashes Extrem Other: Bilateral knees: Normal to inspection. No ecchymosis, erythema, or joint effusion. Left knee iwth medial joint line ttp and mild effusion. Results Reviewed Results Reviewed: I personally reviewed relevant radiographs. Severe bilateral medial compartment varus pattern OA Assessment & Plan Assessment & Plan (1) Primary osteoarthritis of knees, bilateral: Code(s): M17.0 - Bilateral primary osteoarthritis of knee Category: Medical Plan: this is a 53 yo F with chronic bilateral knee pain, radiographically severe OA and loss of ability to ambulate comfortably. She has tried and failed conservative care and I recommend left TKA. I discussed the risks benefits and alternatives including but not limited to the risk of pain, infection, stiffness, need for further surgery as well as potential medical complications such as blood clots, pulmonary embolism and cardiac complications. We discussed the details of the procedure and she would like to proceed forward. Coding Level of Care Code Est Pt Level 4 (79813) Diagnoses Primary osteoarthritis of knees, bilateral M17.0
[2024-04-18 11:19] VITALS: BMI 36.9
== END 2024-04-18 11:38 | disposition home or self-care (01) ==
PROVIDERS: PCP Internal Medicine; Visit Provider Orthopaedic Surgery
DX: M17.0 Bilateral primary osteoarthritis of knee (principal)
CPT/HCPCS: 99214

== ENCOUNTER → 2024-04-18 11:07 | Outpatient (BNVA) | payer OTHER, SELFPAY | PROVIDERS: PCP Internal Medicine; Visit Provider Orthopaedic Surgery | DX: M17.0 Bilateral primary osteoarthritis of knee (principal) | CPT/HCPCS: 99212 ==

== ENCOUNTER → 2024-06-23 08:42 | Outpatient (BNVA) | payer OTHER, SELFPAY | PROVIDERS: PCP Internal Medicine | DX: Z01.818 Encounter for other preprocedural examination (principal) ==

== ENCOUNTER 2024-06-29 11:14 | Outpatient (REF) | payer OTHER, SELFPAY ==
[2024-06-29 13:47] LABS: MANUAL DIFF FLAG NO
[2024-06-29 13:50] LABS: Prothrombin Time 12.6 SEC (11.1-13.3)
[2024-06-29 13:53] LABS: Partial Thromboplastin Time 35.9 SEC (26.0-36.8)
[2024-06-29 14:05] LABS: Basophils Percent Auto 0.6 % (0-2); Eosinophils Absolute Auto 0.4 X10*3/uL (0.0-0.4); Eosinophils Percent Auto 5.6 % (0-4); Hematocrit 35.2 % (37.0-47.0); Hemoglobin 11.3 g/dl (12.0-16.0); Imm Gran Abs Auto 0.02 X10*3/uL (0.00-0.03); Imm Gran Pct Auto 0.3 % (0.0-0.4); Lymphocytes Absolute Auto 2.3 X10*3/uL (1.2-4.9); Mean Corpuscular HGB Conc 32.1 g/dl (31.0-35.0); Mean Corpuscular Hemoglobin 27.6 pg (27.0-33.0); Mean Corpuscular Volume 85.9 fL (80.0-98.0); Mean Platelet Volume 11.6 fL (9.4-12.3); Monocytes Absolute Auto 0.5 X10*3/uL (0.1-1.2); Monocytes Percent Auto 6.9 % (2-11); Neutrophils Absolute Auto 3.6 x10*3/uL (2.0-8.3); Neutrophils Percent Auto 52.6 % (45-73); Platelet Count 298 X10*3/uL (160-400); Red Cell Distribution Width 13.5 % (11.0-16.0); White Blood Count 6.8 X10*3/uL (4.8-10.8)
[2024-06-29 14:37] LABS: Alanine Aminotransferase 17 U/L (0-31); Albumin Level 4.6 g/dL (3.5-5.0); Alkaline Phosphatase 75 U/L (39-117); Anion Gap 14 (12-20); Aspartate Amino Transferase 19 U/L (5-31); Bilirubin Total 0.4 mg/dL (0.0-1.0); Blood Urea Nitrogen 13 mg/dL (9-16); Calcium 10.2 mg/dL (8.4-10.2); Carbon Dioxide 27 mmol/L (22-29); Chloride 102 mmol/L (96-108); Cholesterol 157 mg/dL (<200); Estimated Glomerular Filt Rate > 60; Glucose Random 85 mg/dL (60-115); HDL Cholesterol 37 mg/dL (>40); Iron 118 mcg/dL (30-160); LDL Cholesterol Calculated 98 mg/dL (<100); Percent Iron Saturation 36 % (15-50); Potassium 3.2 mmol/L (3.3-5.1); Sodium 140 mmol/L (135-145); Total Iron Binding Capacity 325 mcg/dL (228-428); Total Protein 7.8 g/dL (6.5-8.0); Triglycerides 113 mg/dL (<150); Unsaturated Iron Binding 207 ug/dL
[2024-06-29 15:36] LABS: Vitamin B12 743 pg/mL (200-900)
[2024-06-30 05:04] LABS: ~HepC Num1 0.16 S/CO (0.00-0.79); ~Hepatitis C Antibody Nonreactive (Nonreactive)
== END 2024-06-29 11:15 | disposition home or self-care (01) ==
LOC: HO.CHCLDS 11:14
PROVIDERS: Visit Provider Internal Medicine
DX: I10 Essential (primary) hypertension (principal)
CPT/HCPCS: 36415; 80053; 80061; 82607; 82746; 83540; 85025; 85610; 85730; 86803

== ENCOUNTER 2024-07-11 10:25 | Outpatient (REF) | payer OTHER, SELFPAY ==
[2024-07-11 15:45] LABS: Potassium 3.9 mmol/L (3.3-5.1)
== END 2024-07-11 10:26 | disposition home or self-care (01) ==
LOC: HO.CHCLDS 10:25
PROVIDERS: Visit Provider Internal Medicine
DX: I10 Essential (primary) hypertension (principal)
CPT/HCPCS: 36415; 84132

== ENCOUNTER 2024-07-21 09:18 | Outpatient (AMB) | payer OTHER, SELFPAY ==
--- NOTE | 2024-07-21 09:25 | A.OFFVIS_ITS ---
Vital Signs 07/21/24 09:26 Height 5 ft 5 in Weight 222 lb BMI 36.9 Intake Visit Reasons: Pre-Op: L TKA w/NE 07/27/24 Intake Note: Susan is a 54 year old female who presents today for a pre op appointment for her Left TKA w/NE 07/27/24. Recycling Operator Required: Yes Recycling Operator Language: Internet Database Specialist Services: Recycling Operator Present Recycling Operator Name: GtCATHERINE/INDIRA Information Interpreted: clinical only Allergies No Known Allergies [No Known Allergies*] Allergy (Verified 07/21/24 09:26) HPI HPI Pre-Op: L TKA w/NE 07/27/24: Details: 54-year-old female, who is Guatemalan speaking, presents in the office today for her preoperative history and physical exam prior to a left total knee arthroplasty to be performed on 07/27/[address] Jose Manuel Goss. The patient has tried and failed all conservative treatments. She reports her pain is limiting her daily activities. Therefore, she has elected to proceed with a left total knee replacement. Patient has no known allergy history. Patient is currently taking, as follows: -Acetaminophen ER 1,300 mg PO Q8H PRN. -Chlorthalidone 25 mg daily. -Ferrous sulfate 325 mg PO BID. -Losartan 100 mg PO daily. -Spironolactone 100 mg PO daily. -ustekinumab 90 mg subcut Q12W. Patient has a medical history, as follows: -GERD. -Constipation. -Anemia -Allergic rhinitis -Anxiety. -Hypertension. -Appendicitis. -Gastropathy. Patient has a surgical history, as follows: -Hx of colonoscopy. -Hx of tubal ligation. -Hx of cholecystectomy -Hx of section. [facility] Medical History (Updated 07/15/24 @ 10:07 by Aileen Horan RN) Back pain Anemia GERD (gastroesophageal reflux disease) HTN (hypertension) History of high blood pressure Right upper quadrant abdominal pain Appendicitis Gastropathy Surgical History Hx of colonoscopy Hx of tubal ligation History of cholecystectomy History of section Family History Father No problems noted. Mother HTN (hypertension), benign Social History Are you a primary lawn care worker to a significant other at home: No Do you presently have visiting nurse or other home services: No Alcohol intake: never Patient Tobacco Use Status: Never used Tobacco Use of substances other than those prescribed or required for medical reasons: No Have you been hit, kicked, punched, or otherwise hurt by someone within the past year? If so, by whom?: No Are you DNR?: No Advance Directives: No Advance Directives Information Provided: No Advance Directives on File: No Recently lost weight without trying: No Eating poorly because of decreased appetite: No Nutrition Risks: No Nutritional Risk Patient : No : No Poor oral hygiene: Yes (upper denture partial) Current occupational status: employed Review of Systems Const All systems reviewed & are unremarkable except as noted in HPI and below Physical Exam Vital Signs: BMI result Body Mass Index 36.9 Const General: cooperative, healthy appearing, comfortable, no acute distress, well developed, alert and awake Orientation/consciousness: patient oriented x3 HEENT Head: Yes normal to inspection, Yes normocephalic and Yes atraumatic Eyes General: appearance normal, both eyes and all related structures Neck Neck: Yes normal visual inspection and Yes no lymphadenopathy Resp Effort & Inspection: normal respiratory effort and able to speak in complete sentences Cardio Rate: regular rate Peripheral pulses: Peripheral pulses 2+ throughout GI Inspection: Yes normal to inspection Palpation (GI): Soft to palpation Skin General skin exam: no rashes or lesions noted Neuro General: patient oriented x3 Extrem Other: Right knee: Normal to inspection. No ecchymosis, erythema, or joint effusion. No tenderness to palpation along the medial or lateral joint lines. Full knee extension and flexion. Crepitus is felt with ROM. NVI. Left knee with medial joint line ttp and mild effusion. Psych Mental Status: mental status grossly normal Office Procedures Joint Injection/Aspiration Joint Injection/Aspiration Primary Site: right knee Prep: site was prepped using aseptic technique, ethochloride spray was applied and injection warnings given Injected: 80 mg of, DepoMedrol, with 8 mL of (2% plain lido ) and in the joint Approach Used: anterolateral Procedure: The patient tolerated the procedure well, but had some pain with the injection and there was some relief with the local anesthesia Coding 26433 - Large joint Procedure code (CPT) selection complete Assessment & Plan Assessment & Plan (1) Primary osteoarthritis of knees, bilateral: Code(s): M17.0 - Bilateral primary osteoarthritis of knee Category: Medical Plan 54-year-old female, who is Guatemalan speaking, presents in the office today for her preoperative history and physical exam prior to a left total knee arthroplasty to be performed on 07/27/[address] Jose Manuel Goss. The patient has tried and failed all conservative treatments. She reports her pain is limiting her daily activities. Therefore, she has elected to proceed with a left total knee replacement. Patient has no known allergy history. Patient is currently taking, as follows: -Acetaminophen ER 1,300 mg PO Q8H PRN. -Chlorthalidone 25 mg daily. -Ferrous sulfate 325 mg PO BID. -Losartan 100 mg PO daily. -Spironolactone 100 mg PO daily. -ustekinumab 90 mg subcut Q12W. Patient has a medical history, as follows: -GERD. -Constipation. -Anemia -Allergic rhinitis -Anxiety. -Hypertension. -Appendicitis. -Gastropathy. Patient has a surgical history, as follows: -Hx of colonoscopy. -Hx of tubal ligation. -Hx of cholecystectomy -Hx of section. The patient was offered a cortisone injection in the right knee with 80 mg of Depo-Medrol. The patient was explained the risks, benefits, and alternatives to receiving this injection. After receiving consent for the injection, the patient had the procedure done while in the office today. The patient tolerated the procedure well with no complication. I discussed in detail the procedure and what to expect pre and post operatively. We discussed the risks, benefits and alternatives to the surgery and the rehabilitation course. The risks include infection, bleeding, nerve injury, ongoing pain, swelling, and stiffness, perioperative risk of injury to bones and soft tissues, and blood clots. The patient will start on aspirin postop for DVT prophylaxis. I have answered all questions and with their understanding they have consented to move forward with a left total knee arthroplasty to be performed on 07/27/[address] Jose Manuel Goss. X-rays of the left knee which were obtained while in the office today and were reviewed by me, Mireille Lara PA-C, revealed preoperative surgical planning. Follow-up will be at the post operative appointment on 08/11/24, or sooner if needed. Orders: Orders XR knee RT 1V Today M25.569 - Pain in unspecified knee Patient Instructions: Scribed by Catherine Monson, medical collections representative, for Mireille Lara PA-C on 07/21/24 at 9:43 am EST. Coding Level of Care Code Global (85578) Diagnoses Primary osteoarthritis of knees, bilateral M17.0 CPT Codes Coding - 87938 Large joint: 99327 - Large joint ([id number])
[2024-07-21 09:26] VITALS: BMI 36.9
== END 2024-07-21 10:18 | disposition home or self-care (01) ==
PROVIDERS: PCP Internal Medicine; Visit Provider Physician Assistant
DX: M17.0 Bilateral primary osteoarthritis of knee (principal)
CPT/HCPCS: 20610; 99024

== ENCOUNTER 2024-07-21 11:12 | Outpatient (REF) | payer OTHER, SELFPAY ==
--- NOTE | ~2024-07-21 | XR_ITS ---
EXAMINATION: XR KNEE, LEFT CLINICAL INFORMATION: Pain in left knee COMPARISON: August 04, 2023 TECHNIQUE: 3 views of the left knee, including bilateral weightbearing view. FINDINGS: There is significant narrowing of the medial compartment of left knee joint with varus deformity. There is spurring: The patella femoral compartment and small joint effusion. One view of right knee revealed significant narrowing of medial compartment of right knee joint with varus deformity XR/XR knee LT 3V IMPRESSION: Advanced degenerative changes in both knees joints with small joint effusion on the left Electronically signed by: Glenn Wilson MD 07/27/2024 04:57 PM EDT
--- NOTE | ~2024-07-21 | XR_ITS ---
EXAMINATION: XR KNEE, RIGHT CLINICAL INFORMATION: Single view of both knees weightbearing COMPARISON: August 04, 2023 TECHNIQUE: Single view of the right knee. FINDINGS: Compared to the previous examinations there is no significant interval change in appearance of cyst loss of joint space medially with varus deformity bilaterally and marginal spurring due to osteoarthritis XR/XR knee RT 1V IMPRESSION: Arthritis in both knee joints with varus deformity Electronically signed by: Glenn Wilson MD 07/27/2024 04:59 PM EDT
== END 2024-07-21 11:13 | disposition home or self-care (01) ==
LOC: HO.HOSX 11:12
PROVIDERS: Visit Provider Physician Assistant
DX: M25.561 Pain in right knee (principal); M17.0 Bilateral primary osteoarthritis of knee; Z96.652 Presence of left artificial knee joint
CPT/HCPCS: 20610; 73560; 73562; 99212; J1010; J2003

== ENCOUNTER 2024-07-27 06:40 | Day surgery (SDC) | payer OTHER, SELFPAY ==
[2024-07-15 10:17] VITALS: BP 141/73; PULSE 55; RESP 18; O2SAT 100; BMI 34.1
--- NOTE | 2024-07-15 10:43 | HO.ANESPROP2 ---
Documented by User: Maggy Peralta NP 07/15/24 10:52 HPI - Anesthesia Eval Consult details Narrative: 54yo F for Left Knee Replacement Total, 07/27/24 No recent illness No CP/SOB within limits of knee pain GERD: Previously on ppi, but resolved and stopped rx chronic iron deficiency anemia. s/p hyst 2021. R/o for GI blood loss with colo and egd. PO iron. PMFSH Active Problems Active Problems: All Active Problems Nausea (Acute) GERD (gastroesophageal reflux disease) (Acute) Constipation (Acute) Primary osteoarthritis of knees, bilateral (Acute) Anemia (Chronic) Allergic rhinitis (Acute) Osteoarthritis (Acute) Anxiety (Acute) Hypertension (Acute) Hx of colonoscopy (Acute) Past Medical History Medical History Back pain Anemia GERD (gastroesophageal reflux disease) HTN (hypertension) History of high blood pressure Right upper quadrant abdominal pain Appendicitis Gastropathy Family History Family History Father No problems noted. Mother HTN (hypertension), benign Family history of problems with anesthesia: No Surgical History Surgical History Hx of colonoscopy Hx of tubal ligation History of cholecystectomy History of section History of Problems with Anesthesia: No Social History Social History Are you a primary pharmacy care coordinator to a significant other at home: No Do you presently have visiting nurse or other home services: No Alcohol intake: never Patient Tobacco Use Status: Never used Tobacco Use of substances other than those prescribed or required for medical reasons: No Have you been hit, kicked, punched, or otherwise hurt by someone within the past year? If so, by whom?: No Are you DNR?: No Advance Directives: No Advance Directives Information Provided: Yes Advance Directives on File: No Recently lost weight without trying: No Eating poorly because of decreased appetite: No Nutrition Risks: No Nutritional Risk Patient : No : No Poor oral hygiene: Yes (upper denture partial) Current occupational status: employed Meds Allergies Allergy/AdvReac Type Severity Reaction Status Date / Time No Known Allergies Allergy Verified 07/21/24 09:26 [No Known Allergies*] Home Medications ?Medication ?Instructions ?Recorded ?Confirmed ?Last Taken ?Type losartan 100 mg tablet 100 mg PO DAILY 07/21/20 07/15/24 07/26/24 History acetaminophen 650 mg 1,300 mg PO Q8H PRN Pain 07/24/20 07/15/24 07/26/24 History tablet,extended release ferrous sulfate 325 mg (65 mg 325 mg PO BID 08/05/21 07/15/24 07/26/24 History iron) tablet (FeroSul) ustekinumab 90 mg/mL subcutaneous 90 mg subcut Q12W 06/23/24 07/15/24 06/21/24 History syringe (Stelara) chlorthalidone 25 mg tablet 25 mg DAILY 07/15/24 07/15/24 07/27/24 History spironolactone 100 mg tablet 100 mg PO DAILY 07/15/24 07/15/24 07/26/24 History Exam Height,Weight and Vital Signs: Height 5 ft 6 in Weight 95.708 kg Last Vital Signs Pulse 55 07/15/24 10:17 Resp 18 07/15/24 10:17 BP 141/73 H 07/15/24 10:17 Pulse Ox 100 07/15/24 10:17 O2 Del Method Room Air 07/15/24 10:17 Pertinent Lab Results Pertinent Lab Results: Laboratory Tests 06/29/24 07/11/24 11:30 10:25 WBC 6.8 Hgb 11.3 L Hct 35.2 L Plt Count 298 Sodium 140 Potassium 3.9 D Chloride 102 Carbon Dioxide 27 BUN 13 Creatinine 0.83 Narrative Narrative: EKG 06/2024 SB @ 43 Airway Mallampati Class: II TM Dist: >3cm Denture: Upper Heart: RRR Lungs: CTAB Assessment and Plan Assessment Anesthesia Assessment: Anesthesia Plan Discussed and PAT Visit Final Anesthetic Review Family History of Problems with Anesthesia: No History of Problems with Anesthesia: No Documented by User: Julita Cano MD 07/27/24 10:52 [facility] Past Medical History Medical History Back pain Anemia GERD (gastroesophageal reflux disease) HTN (hypertension) History of high blood pressure Right upper quadrant abdominal pain Appendicitis Gastropathy Family History Family History Father No problems noted. Mother HTN (hypertension), benign Surgical History Surgical History Hx of colonoscopy Hx of tubal ligation History of cholecystectomy History of section Social History Social History Are you a primary pharmacy care coordinator to a significant other at home: No Do you presently have visiting nurse or other home services: No Alcohol intake: never Patient Tobacco Use Status: Never used Tobacco Use of substances other than those prescribed or required for medical reasons: No Have you been hit, kicked, punched, or otherwise hurt by someone within the past year? If so, by whom?: No Are you DNR?: No Advance Directives: No Advance Directives Information Provided: Yes Advance Directives on File: No Recently lost weight without trying: No Eating poorly because of decreased appetite: No Nutrition Risks: No Nutritional Risk Patient : No : No Poor oral hygiene: Yes (upper denture partial) Current occupational status: employed Meds Allergies Allergy/AdvReac Type Severity Reaction Status Date / Time No Known Allergies Allergy Verified 07/21/24 09:26 [No Known Allergies*] Home Medications ?Medication ?Instructions ?Recorded ?Confirmed ?Last Taken ?Type losartan 100 mg tablet 100 mg PO DAILY 07/21/20 07/15/24 07/26/24 History acetaminophen 650 mg 1,300 mg PO Q8H PRN Pain 07/24/20 07/15/24 07/26/24 History tablet,extended release ferrous sulfate 325 mg (65 mg 325 mg PO BID 08/05/21 07/15/24 07/26/24 History iron) tablet (FeroSul) ustekinumab 90 mg/mL subcutaneous 90 mg subcut Q12W 06/23/24 07/15/24 06/21/24 History syringe (Stelara) chlorthalidone 25 mg tablet 25 mg DAILY 07/15/24 07/15/24 07/27/24 History spironolactone 100 mg tablet 100 mg PO DAILY 07/15/24 07/15/24 07/26/24 History Assessment and Plan Final Anesthetic Review NPO: Yes ASA Class: III Final Preanesthetic Review: No Changes in Pt Med Stat, Meds/Allgs Chart Reviewed, Consent Obtained/Reviewed and Anes Risks/Benef Reviewed Patient Risk: Intermediate Procedure Risk: Intermediate Anesthetic Plan Anesthetic Plan: Spinal and Regional Block Disposition: Standard PACU
[2024-07-15 12:42] LABS: MRSA Nasal PCR NEGATIVE (Negative); SA Nasal PCR NEGATIVE (Negative)
[2024-07-27] VITALS (9 sets, daily range): BP systolic 102–153; BP diastolic 49–78; PULSE 43–68; RESP 16–20; TEMP 36.5–36.8; O2SAT 94–99; BMI 32.9; BMI 34.2
--- NOTE | ~2024-07-27 | XR_ITS ---
Examination: Left knee CLINICAL INFORMATION: Postsurgical TECHNIQUE: AP and lateral views of left knee FINDINGS: 2 views of left medial status post total knee replacement. There are postsurgical staple seen in the soft tissues. There are expected postsurgical changes in the soft tissues. Prosthesis is well positioned. There is no fracture seen. XR/XR knee LT 2V IMPRESSION: Well-positioned left knee prosthesis. Electronically signed by: Glenn Wilson MD 07/27/2024 04:54 PM EDT
[2024-07-27] MEDS: Lactated Ringers 1,000 ML 100 ML IVCONT ×2 (08:29→16:08)
[2024-07-27 08:47] LABS: Hematocrit 36.8 % (37.0-47.0); Hemoglobin 11.9 g/dl (12.0-16.0)
--- NOTE | 2024-07-27 12:20 | MHC.SHP ---
Pre-Procedural Eval Section A - 24 Hr Update-Section A only Date of Service: 07/27/24 The patient is an INPATIENT: No Changes since office visit: No Cold of Flu in the past 2 weeks, No New Medical Problems, No Changes in Medication and No Patient answered all questions The patient has been examined within 24 hours of the surgical procedure. The History & Physical has been completed within 30 days and I have reviewed it.: Yes Section B - Complete if H&P > 30 days Chief Complaint: Unilateral primary osteoarthritis, left knee Allergies: Allergies Allergy/AdvReac Type Severity Reaction Status Date / Time No Known Allergies Allergy Verified 07/21/24 09:26 [No Known Allergies*] Plan I have reviewed the history and physical and performed a pertinent physical examination on my patient. No changes have occurred unless specified. Time Spent With Patient Time: Total time managing care of this patient today ____ minutes.
--- NOTE | 2024-07-27 15:58 | P.BOP_ITS ---
Brief Operative Note Date of Service: 07/27/24 Pre-op diagnosis: Left knee OA Post-op diagnosis: same Procedure: Left TKA Implants: [place] Triathlon press fit posterior stabilized 01/20/11ps/29a Surgeon: Jose Manuel Goss MD Anesthesia: GETA and spinal Was an Legal Internship used for this Procedure?: Yes Legal Internship: Mireille Lara Estimated blood loss (mL): 25 Tourniquet time (min): 55 IV fluids (mL): 1,000 Pathology: other Condition: stable Disposition: PACU
[2024-07-27] MEDS: ceFAZolin Sodium/Dextrose,Iso 2 GM/50 ML PIGGYBACK IV (16:08)
--- NOTE | 2024-07-27 16:24 | HO.PM.IMCN ---
History of Present Illness Data of Consult Service Date: 07/27/24 Primary Care Provider: Robert Alejandor MD HPI 54-year-old woman admitted for left knee osteoarthritis and status post left total knee arthroplasty. Surgery was unremarkable. Patient's vital signs were stable. She has no acute medical complaints at this time. Review of Systems Review of Systems: Denies any recent fever chills or decrease in appetite respiratory denies any shortness of breath or cough cardiovascular denied chest pain gastrointestinal denies any dysphagia abdominal pain nausea vomiting or diarrhea genitourinary denies any dysuria frequency or hematuria musculoskeletal status post knee arthroplasty neuropsych denies any weakness or seizures all other systems reviewed are negative PMFSH Medical History Back pain Anemia GERD (gastroesophageal reflux disease) HTN (hypertension) History of high blood pressure Right upper quadrant abdominal pain Appendicitis Gastropathy Family History Father No problems noted. Mother HTN (hypertension), benign Surgical History Hx of colonoscopy Hx of tubal ligation History of cholecystectomy History of section Social History Household Members: Spouse and Children Housing: House Are you a primary rn primary care to a significant other at home: No Do you presently have visiting nurse or other home services: No Alcohol intake: never Patient Tobacco Use Status: Never used Tobacco Use of substances other than those prescribed or required for medical reasons: No Have you been hit, kicked, punched, or otherwise hurt by someone within the past year? If so, by whom?: No Do you feel safe in your current relationship?: Yes Is there a partner from a previous relationship who is making you feel unsafe now?: No Are you made to feel afraid or neglected: No Are you DNR?: No Advance Directives: No Advance Directives Information Provided: Yes Advance Directives on File: No Do you have a plan to hurt others: No Plan Recently lost weight without trying: No Eating poorly because of decreased appetite: No Nutrition Risks: No Nutritional Risk Patient : No : No Poor oral hygiene: No Current occupational status: employed Meds Allergies Allergy/AdvReac Type Severity Reaction Status Date / Time No Known Allergies Allergy Verified 07/21/24 09:26 [No Known Allergies*] Active Medications: Current Medications Acetaminophen (Acetaminophen 325 Mg Tablet) 650 mg PO Q6H PRN PRN Reason: Pain, Mild (Pain Scale 1-3), fever or headache Aspirin (Aspirin 325 Mg Tablet) 325 mg PO BID [facility] Celecoxib (Celecoxib 200 Mg Capsule) 200 mg PO BID [facility] Docusate Sodium (Docusate Sodium 100 Mg Capsule) 100 mg PO BID [facility] Ferrous Sulfate (Ferrous Sulfate 324 Mg Tablet.Dr) 324 mg PO BID [facility] Hydromorphone HCl (Hydromorphone Hcl 0.5 Mg/0.5 Ml Syringe) 0.25 mg IVPUSH Q4H PRN; Protocol PRN Reason: Pain, Severe (Pain Scale 7-10) Lactated Ringer's (Lr) 1,000 mls @ 100 mls/hr IVCONT .Q10H [facility] Last Admin: 07/27/24 16:08 Dose: 100 mls/hr Losartan Potassium (Losartan Potassium 50 Mg Tablet) 100 mg PO DAILY SEBASTIEN; Protocol Non-Formulary Medication (Ustekinumab [Stelara]) 90 mg SUBCUT Q12W [facility] Oxycodone HCl (Oxycodone Hcl Immed Release 5 Mg Tablet) 5 mg PO Q4H PRN PRN Reason: Pain, Moderate(Pain Scale 4-6) Oxycodone HCl (Oxycodone Hcl Er 10 Mg Tab.Er.12h) 10 mg PO BID [facility] Sodium Chloride (0.9 % Sodium Chloride Flush 3 Ml Syringe) 3 ml IVFLUSH QSHIFT [facility] Spironolactone (Spironolactone 25 Mg Tablet) 100 mg PO DAILY SEBASTIEN; Protocol Home Medications ?Medication ?Instructions ?Recorded ?Confirmed ?Last Taken ?Type losartan 100 mg tablet 100 mg PO DAILY 07/21/20 07/15/24 07/26/24 History acetaminophen 650 mg 1,300 mg PO Q8H PRN Pain 07/24/20 07/15/24 07/26/24 History tablet,extended release ferrous sulfate 325 mg (65 mg 325 mg PO BID 08/05/21 07/15/24 07/26/24 History iron) tablet (FeroSul) ustekinumab 90 mg/mL subcutaneous 90 mg subcut Q12W 06/23/24 07/15/24 06/21/24 History syringe (Stelara) chlorthalidone 25 mg tablet 25 mg DAILY 07/15/24 07/15/24 07/27/24 History spironolactone 100 mg tablet 100 mg PO DAILY 07/15/24 07/15/24 07/26/24 History Physical Exam Vital Signs and Narrative: Vital Signs: Last Vital Signs Temp 97.7 F 07/27/24 15:56 Pulse 47 L 07/27/24 15:56 Resp 16 07/27/24 15:56 BP 152/70 H 07/27/24 15:56 Pulse Ox 99 07/27/24 15:56 O2 Del Method Room Air 07/27/24 15:56 BMI result Body Mass Index 34.2 Appearing in no acute distress head is normocephalic atraumatic eyes pupils are PERRLA sclera is anicteric mouth throat mucous membranes are intact and moist neck is supple no lymphadenopathy, no JVD noted lung sounds are clear to auscultation heart regular rate rhythm, clear S1, S2 positive bowel sounds, abdomen is soft, nontender neuro patient is alert x3, no focal deficits Results Labs 07/27/24 08:31 Labs: Laboratory Results - last 24 hr 07/27/24 08:31 Blood Type A Positive Antibody Screen NEGATIVE Assessment and Plan (1) GERD (gastroesophageal reflux disease): Status: Acute Plan 54-year-old woman status post left total knee arthroplasty Left total knee arthroplasty Management as per surgical team Pain management Hypertension Stable blood pressure Continue home medications Normocytic anemia Stable H&H DVT prophylaxis with full-dose Full code Medical consultation complete. Will sign off
[2024-07-27] MEDS: HYDROmorphone HCl 0.5 MG/0.5 ML SYRINGE 0.25 MG IVPUSH ×2 (18:09→22:41)
--- NOTE | 2024-07-27 18:21 | PHA.MEDREC ---
Addendum entered by Ping Sorensen RPh 07/27/24 18:24: reviewed Original Note: Pharmacy Consult ? Medication Reconciliation Pharmacy has reviewed the medication reconciliation done by nursing. Spoke to patient to confirm med list . Patient states she last received her Stelara 90 mg injection on 06/21/24.
[2024-07-27] MEDS: oxyCODONE HCl ER 10 MG TAB.ER.12H PO (19:53)
[2024-07-27] MEDS: Ferrous Sulfate 324 MG TABLET.DR PO (19:53)
[2024-07-27] MEDS: Celecoxib 200 MG CAPSULE PO (19:53)
[2024-07-27] MEDS: Docusate Sodium 100 MG CAPSULE PO (19:53)
[2024-07-28 00:06] VITALS: BP 121/59; PULSE 51; RESP 16; TEMP 36.2; O2SAT 96
[2024-07-28] MEDS: Lactated Ringers 1,000 ML 100 ML IVCONT (02:07)
[2024-07-28 03:57] VITALS: BP 121/66; PULSE 54; RESP 16; TEMP 36; O2SAT 98
[2024-07-28] MEDS: HYDROmorphone HCl 0.5 MG/0.5 ML SYRINGE 0.25 MG IVPUSH ×2 (04:30→08:26)
[2024-07-28 06:06] LABS: MANUAL DIFF FLAG NO
[2024-07-28 06:22] LABS: Anion Gap 11 (12-20); Blood Urea Nitrogen 18 mg/dL (9-16); Calcium 9.2 mg/dL (8.4-10.2); Carbon Dioxide 25 mmol/L (22-29); Chloride 104 mmol/L (96-108); Creatinine Clr Calc Pharmacy 96.1; Estimated Glomerular Filt Rate > 60; Glucose Fasting 117 mg/dL (60-99); Potassium 3.7 mmol/L (3.3-5.1); Sodium 136 mmol/L (135-145)
[2024-07-28 06:45] LABS: Basophils Percent Auto 0.1 % (0-2); Hematocrit 32.1 % (37.0-47.0); Hemoglobin 10.6 g/dl (12.0-16.0); Imm Gran Abs Auto 0.07 X10*3/uL (0.00-0.03); Imm Gran Pct Auto 0.5 % (0.0-0.4); Lymphocytes Absolute Auto 1.4 X10*3/uL (1.2-4.9); Lymphocytes Percent Auto 10.4 % (20-40); Mean Corpuscular Hemoglobin 27.9 pg (27.0-33.0); Mean Corpuscular Volume 84.5 fL (80.0-98.0); Monocytes Absolute Auto 0.7 X10*3/uL (0.1-1.2); Monocytes Percent Auto 5.1 % (2-11); Neutrophils Absolute Auto 11.3 x10*3/uL (2.0-8.3); Neutrophils Percent Auto 83.9 % (45-73); Platelet Count 290 X10*3/uL (160-400); Red Cell Distribution Width 12.9 % (11.0-16.0); White Blood Count 13.4 X10*3/uL (4.8-10.8)
[2024-07-28 07:36] VITALS: BP 121/64; PULSE 51; RESP 18; TEMP 36; O2SAT 99
[2024-07-28] MEDS: Celecoxib 200 MG CAPSULE PO (08:25)
[2024-07-28] MEDS: Ferrous Sulfate 324 MG TABLET.DR PO (08:25)
[2024-07-28] MEDS: Spironolactone 25 MG TABLET 100 MG PO (08:25)
[2024-07-28] MEDS: Docusate Sodium 100 MG CAPSULE PO (08:26)
[2024-07-28] MEDS: Losartan Potassium 50 MG TABLET 100 MG PO (08:26)
--- NOTE | 2024-07-28 09:01 | PM.DS ---
DS: Providers Provider Date of Service: 07/28/24 Primary care physician: Robert Alejandro MD Consults: 07/27/24 15:40 Consult to Hospitalist Routine Comment: Consulting Provider: Hospitalist Reason For Exam: routine medical management DS: Diagnosis Discharge Diagnosis (1) GERD (gastroesophageal reflux disease): Status: Acute DS: Summary Hospital Course Hospital Course: The patient underwent a successful left total knee arthroplasty, they were transferred to PACU and then to the floor to recover. During their stay, their vitals were stable, afebrile at 96.8. Labs were unremarkable, H/H 106.32.1. POD 1 they were started on Aspirin 325mg po bid for DVT ppx, they also received Physical Therapy services twice a day. Prior to discharge, their dressing was clean dry and intact, and the plan was to be discharged home with VNA services. Time Attestation Discharge Coordination Time (in mins): 30 Quality: Safe Use of Opioids Does Pt have an Active Cancer Diagnosis on the Problem List?: No Quality: Stroke Does the patient have a stroke diagnosis?: No Physical Exam Vital Signs: Vital Signs: Last Vital Signs Temp 96.8 F 07/28/24 07:36 Pulse 51 07/28/24 07:36 Resp 18 07/28/24 07:36 BP 121/64 07/28/24 07:36 Pulse Ox 99 07/28/24 07:36 O2 Del Method Room Air 07/28/24 07:36 BMI result Body Mass Index 34.2 Const: General: cooperative, healthy appearing and no acute distress Resp: Effort & Inspection: normal respiratory effort and able to speak in complete sentences Cardio: Rate: regular rate Peripheral pulses: Peripheral pulses 2+ throughout GI: Palpation (GI): Soft to palpation Skin: Lesions: no lesions Rashes: no rashes Extrem: Other: left knee dressing is c/d/i. Able to dorsi/plantar flex. Calf is supple and nontender. Sensation intact. Pedal pulse intact. DS: Data Data Completed and Pending Pending studies at discharge: Pending at discharge 07/27/24 13:29 Surgical [PTH] Routine Labs on day of discharge: Laboratory Results - last 24 hr 07/27/24 07/28/24 08:31 05:53 WBC 13.4 H RBC 3.80 L Hgb 10.6 L Hct 32.1 L MCV 84.5 MCH 27.9 MCHC 33.0 RDW 12.9 Plt Count 290 MPV 11.0 Immature Gran % (Auto) 0.5 H Neut % (Auto) 83.9 H Lymph % (Auto) 10.4 L [place] % (Auto) 5.1 Eos % (Auto) 0.0 Baso % (Auto) 0.1 Lymph # (Auto) 1.4 [place] # (Auto) 0.7 Eos # (Auto) 0.0 Baso # (Auto) 0.0 Abs Immat Gran (auto) 0.07 H Absolute Neuts (auto) 11.3 H Absolute Nucleated RBC 0.000 Nucleated RBC % (auto) 0.0 Sodium 136 Potassium 3.7 Chloride 104 Carbon Dioxide 25 Anion Gap 11 L BUN 18 H Creatinine 0.80 Estim Creat Clear Calc 96.1 Estimated GFR > 60 Fasting Glucose 117 H Calcium 9.2 D Blood Type A Positive Antibody Screen NEGATIVE Discharge Plan Discharge Patient Disposition: Home, Self-Care Referrals: Mireille Lara PA-C [Physician Chinese Language Professor] - 08/11/24 12:30 pm Discharge Medications: New acetaminophen 325 mg Tablet 650 mg PO Q6H PRN (Reason: Pain, Mild (Pain Scale 1-3), fever or headache) 30 Days Qty: 240 0RF celecoxib 200 mg Capsule 200 mg PO BID 30 Days Qty: 60 0RF aspirin 325 mg Tablet 325 mg PO BID 42 Days Qty: 84 0RF docusate sodium 100 mg Capsule 100 mg PO BID 30 Days Qty: 60 0RF oxycodone 5 mg Tablet 5 mg PO Q4H PRN (Reason: Pain, Moderate(Pain Scale 4-6)) 7 Days Qty: 42 0RF Rx Instructions: Partial Fill upon patient request. Continued (DME) kinjal See Rx Instructions .Route .MEDSUPPLY Qty: 1 0RF Rx Instructions: As directed (DME) lisbet Bates See Rx Instructions .ROUTE .MEDSUPPLY Qty: 1 0RF Rx Instructions: [facility] front wheeled lisbet spironolactone 100 mg tablet 100 mg PO DAILY chlorthalidone 25 mg tablet 25 mg DAILY losartan 100 mg tablet 100 mg PO DAILY ferrous sulfate [FeroSul] 325 mg (65 mg iron) tablet 325 mg PO BID Stelara 90 mg/mL syringe 90 mg subcut Q12W Discontinued acetaminophen 650 mg tablet extended release 1,300 mg PO Q8H PRN (Reason: Pain) Discharge Orders: Discharge Order (Routine); Ordered 07/28/24 Ordered By: Mireille Lara Diet: Advance to usual diet Activity on Discharge: Use cane or walker Activity Restrictions/Additional Instructions: Physical Therapy for ROM 0-120, quad strength, gait training. Use walker for ambulation Limit stair climbing, No shower, No tub bath, No driving Continue anticoagulant x 6 weeks Keep Aquacel dressing clean, dry and intact. Follow up with orthopedics in 2 weeks Print Language: Divehi
--- NOTE | 2024-07-28 09:03 | P.F2F_ITS ---
Service Date Service Date: 07/28/24 Encounter Date of encounter: 07/28/24 Reasons for Services Signs and symptoms assessed: s/p LTKA Pt. is considered homebound due to recent surgery. Unable to drive, poor balance, poor gait mechanics. Reason for physical therapy: home safety and mobility, therapeutic exercises, restore joint function, gait/transfer training and ADL training Homebound: Leaving the home is medically contraindicated at this time without the asist of a device and/or another person due th the listed conditions above and below. Reason homebound: unsteady gait / fall risk, leg weakness, pain with ambulation, pain with transfers, poor balance / fall risk and unable to drive Certification: Based on the above findings, I certify that this patient is confined to the home and needs intermittent detention care, physical therapy and/or speech th erapy, or continues to need occupational therapy. The patient is under my care, and I have initiated the establishment of the plan of care. The patient will be followed by a physician who will periodically review the plan of care. Time Spent With Patient Time: Total time managing care of this patient today ____ minutes.
--- NOTE | 2024-07-28 09:07 | HO.POSTANES ---
Post Anesthesia Evaluation Post Anesthesia Evaluation Date of Service: 07/27/24 Vital Signs: Vital Signs Temp Pulse Resp BP Pulse Ox O2 Del Method 07/28/24 07:36 96.8 F 51 18 121/64 99 Room Air 07/28/24 03:57 96.8 F 54 16 121/66 98 Room Air 07/28/24 00:06 97.2 F 51 16 121/59 L 96 Room Air Anesthesia: Spinal Mental Status: Awake Pain Control: Satisfactory Nausea/Vomiting: None Hydration: Adequate Anesthesia-Related Issues: No Anes. Related Issues
[2024-07-28] MEDS: oxyCODONE HCl ER 10 MG TAB.ER.12H PO (09:51)
--- NOTE | 2024-07-28 11:11 | MHC.CM.PN ---
Patient dc'd prior to case management assessment completion. Per chart, patient lives in a home w/ . Functionally independent. No HCP on file. PCP Robert Alejandro DP: Home w/ [facility], as patient discussed w/ ortho nurse navigator. [facility] aware of dc.
--- NOTE | 2024-07-28 16:30 | W.PM.OPN ---
Operative Note Operative Note Date of Service: 07/27/24 Narrative: Date of Service: 07/27/24 Pre-op diagnosis: Left knee OA Post-op diagnosis: same Procedure: Left TKA Implants: [place] Triathlon press fit posterior stabilized 01/20/11ps/29a Surgeon: Jose Manuel Goss MD Anesthesia: GETA and spinal Was an Water Plant Maintenance Mechanic used for this Procedure?: Yes Water Plant Maintenance Mechanic: Mireille Lara Estimated blood loss (mL): 25 Tourniquet time (min): 55 IV fluids (mL): 1,000 Pathology: other Condition: stable Disposition: PACU Procedure in detail: The patient was brought to the operating room and prepped and draped in standard sterile fashion. A time-out was called to identify proper site proper procedure proper surgeon and IV antibiotics were administered. 1 g of IV tranexamic acid was administered. I began by making a midline incision to the retinaculum and performed a medial parapatellar arthrotomy. The patella was translated laterally and the knee was flexed up. The medial comaprtment was eburnated. I performed a small medial peel and resected the infrapatellar fat pad. [place]fax's line was then used to drill my intramedullary femoral guide and my distal femur cut of12 mm was made in 5 degrees of valgus while protecting the soft tissues. I then measured a #4 femur and placed my cutting guide in 3 deg of ER and made my anterior posterior and chamfer cuts protecting the soft tissues at all times. I then made my box but removing the PCL. Once I was satisfied with my cuts I turned my attention to the tibia. I removed the meniscus medially and laterally and , using an external cutting guide, in line with the tibial crest and the third ray, I made my distal tibial cut in 0 deg slope of while protecting the posterior soft tissues at all times. An extension block was used to confirm appropriate amount of bony resection. I then sized a #4 tibia and once I was satisfied that there was complete tibial coverage I placed my trial and with the trial femur in place took the knee through range of motion. I was satisfied with the extension and flexion as well as the balance at 0, 30 and 90 degrees. I then turned my attention to the patella where I removed 1 cm from the undersurface of the patella and then trialed a 29a patellar button. Again the knee was taken through range of motion I was satisfied with the tracking. I then prepared the tibia with a drill and punch. A femoral bone plug was placed and the knee was irrigated copiously. I then press fit the patella, tibia and femur in standard fashion. I trialed different inserts until I selected a #11 insert. The final insert was placed and local TXA was administered. The knee was then closed with a running Quill suture, a 3 0 Vicryl and lorenzo on the skin. Patient was then placed in sterile dressing and brought to recovery room in stable condition there were no known complications.
== END 2024-07-28 11:17 | disposition home health service (06) ==
LOC: HO.SSS 07:26 → HO.S3 14:41
PROVIDERS: Physician Assistant; PCP Internal Medicine; Visit Provider Orthopaedic Surgery
PROC: (CPT 27447; principal; 2024-07-27 10:00)
DX: M17.12 Unilateral primary osteoarthritis, left knee (principal); M25.562 Pain in left knee; D64.9 Anemia, unspecified; K21.9 Gastro-esophageal reflux disease without esophagitis; I10 Essential (primary) hypertension; J30.9 Allergic rhinitis, unspecified; K59.00 Constipation, unspecified; Z79.899 Other long term (current) drug therapy; Z90.49 Acquired absence of other specified parts of digestive tract; Z98.890 Other specified postprocedural states
CPT/HCPCS: 27447; 36415; 73560; 80048; 85014; 85018; 85025; 86850; 86900; 86901; 87640; 87641; 88305; 88311; 97161; C1776; J0131; J0665; J0690; J1100; J1171; J2003; J2250; J2405; J2704; J3010; J7120

== ENCOUNTER → 2024-07-27 06:40 | Outpatient (BNV) | payer OTHER, SELFPAY | PROVIDERS: PCP Internal Medicine; Visit Provider Nurse Practitioner Acute Care | DX: K21.9 Gastro-esophageal reflux disease without esophagitis (principal) | CPT/HCPCS: 99221 ==

== ENCOUNTER → 2024-07-27 06:40 | Outpatient (BNV) | payer OTHER, SELFPAY | PROVIDERS: PCP Internal Medicine; Visit Provider Orthopaedic Surgery | DX: Z47.1 Aftercare following joint replacement surgery (principal); Z96.652 Presence of left artificial knee joint | CPT/HCPCS: 27447; 99024; G0180 ==

== ENCOUNTER 2024-08-11 12:21 | Outpatient (AMB) | payer OTHER, SELFPAY ==
--- NOTE | 2024-08-11 12:23 | A.OFFVIS_ITS ---
Intake Visit Reasons: 2WK PO: L TKA w/NE 07/27/24 Intake Note: Susan is a 54 year old female who presents today for a post op appointment s/p Left TKA 07/27/24 NE. Patient reports she is doing well, having some discomfort around her knee. Bandage was removed. Allergies No Known Allergies [No Known Allergies*] Allergy (Verified 08/11/24 12:37) HPI HPI 2WK PO: L TKA w/NE 07/27/24: Details: 54-year-old female who presents in the office today 2 weeks status post left total knee arthroplasty which was performed on 07/27/[address] Goss. While in the office today, the patient reports she is doing well postoperatively. She mentions having mild discomfort around her left knee. Her bandage was removed. [facility] Medical History Back pain Anemia GERD (gastroesophageal reflux disease) HTN (hypertension) History of high blood pressure Right upper quadrant abdominal pain Appendicitis Gastropathy Surgical History Hx of colonoscopy Hx of tubal ligation History of cholecystectomy History of section Family History Father No problems noted. Mother HTN (hypertension), benign Social History Household Members: Spouse and Children Housing: House Are you a primary intensive care nurse to a significant other at home: No Do you presently have visiting nurse or other home services: No Alcohol intake: never Patient Tobacco Use Status: Never used Tobacco Current occupational status: employed Review of Systems Const All systems reviewed & are unremarkable except as noted in HPI and below Physical Exam Const General: cooperative, healthy appearing and no acute distress Resp Effort & Inspection: normal respiratory effort and able to speak in complete sentences Cardio Rate: regular rate Peripheral pulses: Peripheral pulses 2+ throughout GI Palpation (GI): Soft to palpation Skin Lesions: no lesions Rashes: no rashes Extrem Other: Left knee: Incision site is clean, dry, and intact. Lorenzo intact. No surrounding erythema or drainage. No signs of infection. Active range of motion is 30-90 degrees. NVI. Assessment & Plan Assessment & Plan (1) Status post total knee replacement, left: Code(s): Z96.652 - Presence of left artificial knee joint Category: Surgical Plan Ms. Carlo Magana is a 54-year-old female who presents in the office today 2 weeks status post left total knee arthroplasty which was performed on 07/27/[address] Goss. While in the office today, the patient reports she is doing well postoperatively. She mentions having mild discomfort around her left knee. Her bandage was removed. Lorenzo were removed and steri-strips were applied. The case was discussed with Dr. Goss who was available to see the patient with me in the office today, and a collaborative treatment plan was made. The patient will be transitioned to outpatient physical therapy and I have placed an order for PT today. She will focus on regaining quad function. Follow-up will be in [address] Goss with x-rays, or sooner if needed. Orders: Orders PT Evaluation and Treatment Today Z96.652 - Presence of left artificial knee joint Patient Instructions: Scribed by Catherine Monson medical administrative technician, for Mireille Lara PA-C on 08/11/24 at 12:43 pm EST. Coding Level of Care Code Global (95791) Diagnoses Status post total knee replacement, left Z96.652
== END 2024-08-11 12:56 | disposition home or self-care (01) ==
PROVIDERS: PCP Internal Medicine; Visit Provider Physician Assistant
DX: Z96.652 Presence of left artificial knee joint (principal)
CPT/HCPCS: 99024

== ENCOUNTER → 2024-08-11 12:21 | Outpatient (BNVA) | payer OTHER, SELFPAY | PROVIDERS: PCP Internal Medicine; Visit Provider Physician Assistant | DX: M25.562 Pain in left knee (principal); Z47.1 Aftercare following joint replacement surgery; Z96.652 Presence of left artificial knee joint | CPT/HCPCS: 99212 ==

== ENCOUNTER 2024-09-01 08:28 | Outpatient (AMB) | payer OTHER, SELFPAY ==
--- NOTE | 2024-09-01 08:30 | MHC.OFFVIS ---
Vital Signs 09/01/24 08:33 Height 5 ft 5 in Weight 198 lb BMI 32.9 Intake Visit Reasons: PO - L TKA w/NE 07/27/24 Intake Note: Susan is a 54 year old female who presents today for a post operative follow up of her left knee s/p Left TKA 07/27/2024. Patient reports that she is doing well, making progress. No concerns at this time. Allergies No Known Allergies [No Known Allergies*] Allergy (Verified 08/11/24 12:37) HPI HPI PO - L TKA w/NE 07/27/24: Details: I did comes in today 6 weeks status post left knee replacement doing well. She has excellent range of motion in his walking. She uses a cane in her primary complaint is pain at night. [facility] Medical History Back pain Anemia GERD (gastroesophageal reflux disease) HTN (hypertension) History of high blood pressure Right upper quadrant abdominal pain Appendicitis Gastropathy Surgical History Hx of colonoscopy Hx of tubal ligation History of cholecystectomy History of section Family History Father No problems noted. Mother HTN (hypertension), benign Social History Household Members: Spouse and Children Housing: House Are you a primary small animal caretaker to a significant other at home: No Do you presently have visiting nurse or other home services: No Alcohol intake: never Patient Tobacco Use Status: Never used Tobacco Current occupational status: employed Physical Exam Vital Signs: BMI result Body Mass Index 32.9 Extrem Other: Stable arc of motion Incision clean dry and intact 0-130 Assessment & Plan Assessment & Plan (1) Status post total knee replacement, left: Code(s): Z96.652 - Presence of left artificial knee joint Category: Surgical Plan: Refill Oxycodone for night pain. Patient will wean off this over the next 2-3 weeks. We will discontinue aspirin. Follow up in 6 weeks with PA Medications: Changed From oxycodone Partial Fill upon patient request. 5 mg PO Q6H 7 days PRN 28 tabs 0RF Pain, Moderate(Pain Scale 4-6) To oxycodone Partial Fill upon patient request. 5 mg PO BID 15 days PRN 30 tabs 0RF Pain, Moderate(Pain Scale 4-6) Coding Level of Care Code Global (69991) Diagnoses Status post total knee replacement, left Z96.652
[2024-09-01 08:33] VITALS: BMI 32.9
== END 2024-09-01 08:57 | disposition home or self-care (01) ==
PROVIDERS: PCP Internal Medicine; Visit Provider Orthopaedic Surgery
DX: Z96.652 Presence of left artificial knee joint (principal)
CPT/HCPCS: 99024

== ENCOUNTER → 2024-09-01 08:28 | Outpatient (BNVA) | payer OTHER, SELFPAY | PROVIDERS: PCP Internal Medicine; Visit Provider Orthopaedic Surgery | DX: Z47.1 Aftercare following joint replacement surgery (principal); Z96.652 Presence of left artificial knee joint | CPT/HCPCS: 99212 ==

== ENCOUNTER 2024-10-10 10:07 | Outpatient (RCR) | payer OTHER, SELFPAY ==
--- NOTE | 2024-08-19 14:46 | MHC.PT.EP ---
[employer] [employer] [place] Office [place] Office [place] Office [address] [phone] F: [phone] F: [phone] F: [phone] F: [phone] Physical Therapy Plan of Care Date of Evaluation: 08/19/24 Date of Surgery: 07/27/24 Diagnosis: R TKA Assessment: Pt is a 54yo female who presents 3 weeks s/p R TKA, following home PT. PT exam reveals mildly limited ROM and strength, edema and pain leading to limited mobility. Skilled PT indicated to address these impairments with goal for normal mobility without AD. Pt in agreement with POC and is motivated to participate. Frequency and Duration: The patient will be seen 2x/week x 4 weeks Short Term Goals: 1. Pt will achieve L knee AROM 0-120 degrees in 2 weeks, pain <4/10. 2. Pt will be I with phase 1 TKA post-op HEP in 2 weeks. 3. Pt will be able to ambulate with step-through pattern and SPC x 200 feet with normal ankle/knee joint mechanics. Halfway Goals: 1. In 4 weeks, patient will be able to go up and down 6 stairs with reciprocal pattern. 2. Improve LEFS score to >= 40/80 LEFS indicating overall improved functional mobility and pain. Treatment Plan: Modalities to reduce pain, spasms and effusion. Manual therapy to restore motion and function. Therapeutic exercise to improve strength and flexibility. Neuromuscular re-education for posture and balance. Therapeutic activities to return to functional activities of daily living. Electronically signed by: Abimbola Moore PT, DPT Please sign and return to therapist. Thank you for your referral.
== END 2024-11-29 13:06 | disposition home or self-care (01) ==
LOC: HO.PT 10:07
PROVIDERS: PCP Internal Medicine; Visit Provider Physician Assistant
DX: Z96.652 Presence of left artificial knee joint (principal)
CPT/HCPCS: 97110; 97112; 97116; 97140; 97161; 97530

== ENCOUNTER 2024-10-13 09:01 | Outpatient (REF) | payer OTHER, SELFPAY | END 2024-10-13 09:02 | disposition home or self-care (01) | LOC: HO.HOSX 09:01 | PROVIDERS: Visit Provider Physician Assistant | DX: Z47.1 Aftercare following joint replacement surgery (principal); M25.562 Pain in left knee; M17.11 Unilateral primary osteoarthritis, right knee; Z96.652 Presence of left artificial knee joint | CPT/HCPCS: 20610; 73560; 73562; 99212; J1010; J2003 ==

== ENCOUNTER 2024-10-13 12:58 | Outpatient (AMB) | payer OTHER, SELFPAY ==
--- NOTE | 2024-10-13 13:20 | A.OFFVIS_ITS ---
Intake Visit Reasons: PO - Left TKA 07/27/24 NE Intake Note: Susan is a 54 year old female who presents today for a post op appointment s/p Left TKA 07/27/24 NE. Patient reports she is still having pain, however she feels that PT is giving her mild relief. Customer Retention Specialist Services: Customer Retention Specialist Present (Rayne ([phone])) Allergies No Known Allergies [No Known Allergies*] Allergy (Verified 08/11/24 12:37) HPI HPI PO - Left TKA 07/27/24 NE: Details: 54-year-old female, who presents in the office today 2 months status post left total knee arthroplasty which was performed on 07/27/[address] Goss. I last saw the patient in the office on 08/11/24, when she was transitioned to outpatient physical therapy and placed a referral order for PT focusing on regaining quad function. She was seen by Dr. Goss on 09/01/24 and refilled her oxycodone 5 mg PO BID PRN for 15 days with the instruction of weaning it in 2-3 weeks. They also discussed discontinuing aspirin. While in the office today, the patient reports persistent left knee pain. She mentions attending physical therapy, which is providing her with mild pain relief. [facility] Medical History Back pain Anemia GERD (gastroesophageal reflux disease) HTN (hypertension) History of high blood pressure Right upper quadrant abdominal pain Appendicitis Gastropathy Surgical History Hx of colonoscopy Hx of tubal ligation History of cholecystectomy History of section Family History Father No problems noted. Mother HTN (hypertension), benign Social History Household Members: Spouse and Children Housing: House Are you a primary janitor caretaker to a significant other at home: No Do you presently have visiting nurse or other home services: No Alcohol intake: never Patient Tobacco Use Status: Never used Tobacco Current occupational status: employed Review of Systems Const All systems reviewed & are unremarkable except as noted in HPI and below Physical Exam Const General: cooperative, healthy appearing and no acute distress Resp Effort & Inspection: normal respiratory effort and able to speak in complete sentences Cardio Rate: regular rate Peripheral pulses: Peripheral pulses 2+ throughout GI Palpation (GI): Soft to palpation Skin Lesions: no lesions Rashes: no rashes Extrem Other: Left knee: Normal to inspection. No ecchymosis, erythema or joint effusion. Range of motion is 0-110 degrees. NVI. Prior surgical incision site is well ap proximated and completely healed. Right knee: Full range of motion. Crepitus felt with range of motion. Assessment & Plan Assessment & Plan (1) Status post total knee replacement, left: Code(s): Z96.652 - Presence of left artificial knee joint Category: Surgical (2) Osteoarthritis of right knee: Code(s): M17.11 - Unilateral primary osteoarthritis, right knee Category: Medical Plan Ms. Carlo Magana is a 54-year-old female, who presents in the office today 2 months status post left total knee arthroplasty which was performed on 07/27/[address] Goss. I last saw the patient in the office on 08/11/24, when she was transitioned to outpatient physical therapy and placed a referral order for PT focusing on regaining quad function. She was seen by Dr. Goss on 09/01/24 and refilled her oxycodone 5 mg PO BID PRN for 15 days with the instruction of weaning it in 2-3 weeks. They also discussed discontinuing aspirin. While in the office today, the patient reports persistent left knee pain. She mentions attending physical therapy, which is providing her with mild pain relief. Right knee: The patient was offered a cortisone injection in the right knee with 80 mg of Depo-Medrol. The patient was explained the risks, benefits, and alternatives to receiving this injection. After receiving consent for the inject ion, the patient had the procedure done while in the office today. The patient tolerated the procedure well with no complication. Left knee: the patient will resume back to normal activities as tolerated. Follow-up will be in 6 months from her date of surgery, or sooner if needed. X-rays of the left knee, which were obtained while in the office today and were reviewed by me, Mireille Lara PA-C, revealed: Intact orthopedic hardware with proper alignment. Orders: Orders XR knee RT 1V 10/13/24 M25.569 - Pain in unspecified knee XR knee LT 3V 10/13/24 M25.569 - Pain in unspecified knee Patient Instructions: Scribed by Catherine Monson medical librarian, for Mireille Lara PA-C on 10/13/24 at 1:52 pm EST. Coding Level of Care Code Global (82996) Diagnoses Status post total knee replacement, left Z96.652 Osteoarthritis of right knee M17.11
== END 2024-10-13 13:46 | disposition home or self-care (01) ==
PROVIDERS: PCP Internal Medicine; Visit Provider Physician Assistant
DX: Z96.652 Presence of left artificial knee joint (principal); M17.11 Unilateral primary osteoarthritis, right knee
CPT/HCPCS: 99024

== ENCOUNTER 2024-11-15 10:16 | Outpatient (REF) | payer OTHER, SELFPAY ==
--- OUTSIDE RECORDS SUMMARY | 2024-11-15 11:10 | XMS_ITS | Encounter Summary ---
Author Organization [employer] Address [address] [place] [address] Care Team Providers Care Costume Seamstress Name Role Phone Robert Mccollum MD Primary Care Prov ider Encounter Details Date Type Department Care Team (Latest Contact Info) Description 11/03/2024 Travel Social History Tobacco Use Types Packs/Day Years Used Date Smoking Tobacco: Never Passive Smoke Exposure: Never Smokeless Tobacco: Never Alcohol Use Standard Drinks/Week Comments Never 0 (1 standard drink = 0.6 oz pur e alcohol) Depression Answer Date Recorded Patient Health Questionnaire-9 Score 8 11/03/2024 Patient Health Questionnaire-9 Score 8 11/03/2024 Last PHQ-9: Questionnaire Data Not on file 0 11/03/2024 Housing Stability Answer Date Recorded What is your housing situation today? I have sree padilla 02/15/[address] you li ve. Do you have problems with any of the following? None of the above 02/15/2024 Food Insecurity Answer Date Recorded Within the past 12 months, y ou worried that your food would run out before you got money to buy more: Never True 02/15/2024 Within the past 12 months,th e food you bought just didn't last and you didn't have enough money to get more: Never True Transportation Answer Date Recorded In the past 12 months, has l ack of transportation kept you from medical appts, meetings, work or from getting things needed for daily living? No 02/15/2024 Utilities Answer Date Recorded In the past 12 months, has t he electric, gas, oil or water company threatened to shut off services in your home? No 02/15/2024 Depression Answer Date Recorded Patient Health Questionnaire-2 Score 2 11/03/2024 Comments Unknown Sex and Gender Information Value Date Recorded Sex Assigned at Female 08/18/2022 10:32 AM EDT Legal Sex Female 10:32 AM EDT Gender Identity Choose not to disclose 10:32 AM EDT Sexual Orientation Choose not to disclose 2021 10:32 AM EDT documented as of this encounter Plan of Treatment Not on file documented as of this encounter Visit Diagnoses Not on filedocumented in this encounter Additional Health Concerns Assessment Noted Time PHQ-9 Depression Total Score: 8 11/03/19 25 4:21 PM EST documented as of this encounter Care Teams Costume Seamstress Relationship Specialty Start Date End Date Robert Mccollum MD [address] [place] [id number] PCP - General Internal Medicine 02/24/20 documented as of this encounter
--- OUTSIDE RECORDS SUMMARY | 2024-11-15 11:10 | XMS_ITS | Encounter Summary ---
Author Organization [employer] Address [address] [place] [address] [address] [place] [address] Care Team Providers Care Supervisor Smoke Control Name Role Phone Robert Mccollum MD Primary Care Prov ider Encounter Details Date Type Department Care Team (Late st Contact Info) Description 06/10/2023 Orders Only [facility] [address] [place] [address] Robert Mccollum MD [address] [place] [address] Social History Tobacco Use Types Packs/Day Years Used Date Smoking Tobacco: Never Passive Smoke Exposure: Never Smokeless Tobacco: Never Depression Answer Date Recorded Patient Health Questionnaire-9 Score 0 09/29/2022 Depression Answer Date Recorded Patient Health Questionnaire-2 Score 0 09/29/2022 Comments Unknown Sex and Gender Information Value [...] Assessment Noted Time PHQ-9 Depression Total Score: 0 09/29/20 22 9:25 AM EST documented as of this encounter Care Teams Supervisor Smoke Control Relationship Specialty Start Date End Date Robert Mccollum MD [address] [place] [address] PCP - General Internal Medicine 02/24/20 documented as of this encounter
--- OUTSIDE RECORDS SUMMARY | 2024-11-15 11:10 | XMS_ITS | Clinical Summary ---
Author Organization [address] [place] [address] Address [address] [place] [address] Phone Care Team Providers Care Master Lay Out Specialist Name Role Phone Robert Mccollum Primary Care Provide r Allergies No known active allergies Medications Medication Sig Dispensed Refills Start Date End Date Status losartan/hydrochloroth iazide (HYZAAR ORAL) Take 100 mg by mouth daily. Active amLODIPine (NORVASC) 10 mg tablet Take 10 mg by mouth daily. Active cholecalciferol (VITAMIN D-3) 50 mcg (2,000 unit) tablet Take 1 tablet by mouth daily. Active ferrous fumarate 324 mg (106 mg iron) tablet Take 1 Tab by mouth 2 times daily (before meals). 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 9 Breast calcifications on mammogram 10/14/2018 Overview (09/05/2024): Further testing needed Breast Bx 10/2018 was benign Immunizations Name Administration Dates Next Due Moderna SARS-CoV-2 COVID-19, mRNA, LNP-S, preservative free 03/27/2021,02/27/2021 Surgical History Surgery Date Site/Laterality Comments OTHER SURGICAL HISTORY 2000 PROCEDURE: OR LIG/TRNSXJ FLP TUBE ABDL/VAG APPR UNI/BI; COMMENT: OR SECTION 2000 PROCEDURE: OR DELIVERY ONLY; COMMENT: OR CHOLECYSTECTOMY 2004 PROCEDURE: OR LAPAROSCOPY SURG CHOLECYSTECTOMY; COMMENT: OR OTHER SURGICAL HISTORY 06/30/2022 PROCEDURE: OR LAPS TOTAL HYSTERECT 250 GM/< W/RMVL TUBE/OVARY; COMMENT: Robot assisted total laparoscopic hysterectomy, bilateral salpingectomy, cystoscopy Medical History Medical History Date Comments Anemia DX:Anemia Hypertension DX:Hypertension Family History Medical History Relation Name Comments Hypertension Father Hypertension Maternal Grandfather Arthritis Maternal Grandmother Breast cancer Maternal Grandmother Hypertension Maternal Grandmother Hypertension Mother Hypertension Paternal Grandfather Hypertension Paternal Grandmother Colon cancer Neg Hx Ovarian cancer Neg Hx Prostate cancer Neg Hx Relation Name Status Comments Father Maternal Grandfather Maternal Grandmother ? age Mother Paternal Grandfather Paternal Grandmother Social History Tobacco Use Types Packs/Day Years Used Date Smoking Tobacco: Never Smokeless Tobacco: Never Alcohol Use Standard Drinks/Week Comments No 0 (1 standard drink = 0.6 oz pur e alcohol) Sex and Gender Information Value Date Recorded Sex Assigned at Not on file Gender Identity Not on file Sexual Orientation Not on file Obstetrics History Last Filed Vital Signs Vital Sign Reading Time Taken Comments Blood Pressure 144/87 07/12/2024 11:05 AM EDT Pulse 91 07/12/2024 11:05 AM EDT Temperature - - Respiratory Rate - - Oxygen Saturation - - Inhaled Oxygen Concentration - - Weight 94.3 kg (208 lb) 07/12/2024 11:05 AM EDT Height 167.6 cm (5' 6 ) 07/12/2024 11:05 AM EDT Body Mass Index 33.57 07/12/2024 11:05 AM EDT Plan of Treatment Upcoming Encounters Date Type Department Care Team (Late st Contact Info) Description 11/22/2024 9:15 AM EST Office Visit Bariatric Surgery - [place] [address] [facility] [address] [place] [address] Regine Castanon MD 175 [facility] [address] [place] [address] Health Maintenance Due Date Last Done Comments Pneumococcal Vaccine: Pediatrics (0 to 5 Years) and At-Risk Patients (6 to 64 Years) (1 of 2 - PCV) 1978 DTaP,Tdap,and Td Vaccines (1 - Tdap) 1991 Hepatitis B Vaccines (1 of 3 - 19+ 3-dose series) 1991 Zoster Vaccines (1 of 2) 1991 Breast Cancer Screening 11/11/2020 11/11/19 19, 11/02/2018, 10/09/2018 COVID-19 Vaccine (3 - Modern a risk series) 04/24/2021 03/27/2021, 02/27/2021 Colorectal Cancer Screening: Colonoscopy 09/17/2022 Social Influencers of Health Screening 09/17/2022 Influenza Vaccine (#1) 2024 Depression Screening 02/03/2025 02/04/2024 Cervical Cancer Screening: P ap Smear 04/24/2025 04/24/2022, 02/02/2018, 02/02/2018 Cholesterol Screening (Lipid Panel) 06/29/2029 06/29/2024 HIV Screening Completed 06/10/2021 Hepatitis C Screening Completed 06/29/2024 HIB Vaccines Aged Out No longer eligi ble based on patient's age to complete this topic HPV Vaccines Aged Out No longer eligi ble based on patient's age to complete this topic Hepatitis A Vaccines Aged Out No long er eligible based on patient's age to complete this topic IPV Vaccines Aged Out No longer eligi ble based on patient's age to complete this topic MMR Vaccines Aged Out No longer eligi ble based on patient's age to complete this topic Meningococcal ACWY Vaccine Aged Out N o longer eligible based on patient's age to complete this topic RSV Immunization Patients Under 20 months Aged Out No longer eligible b ased on patient's age to complete this topic Varicella Vaccines Aged Out No longer eligible based on patient's age to complete this topic Procedures Procedure Name Priority Date/Time Associated Diagnosis Comments HEPATITIS C SCREENING Routine 06/29/2024 LIPID PANEL Routine 06/29/2024 DEPRESSION SCREENING Routine 02/04/2024 PAP SMEAR Routine 04/24/2022 HIV SCREENING Routine 06/10/2021 DX MAMMO INCL CAD UNI Routine 11/11/2018 1:23 PM EST Other abnormal and inconclusive findings on diagnostic imaging of breast from Last 3 Months or Most Recently Relevant to Health Maintenance Results * Hepatitis C Screening (06/29/2024) Hepatitis C Screening Abstracted Historical Provider [facility] Lipid panel (06/29/2024) [facility] LDL/HDL Ratio 0 Comment:No Interpretation Triglycerides 0 mg/dL Comment:No Interpretation Cholesterol 0 mg/dL Comment:No Interpretation HDL 0 mg/dL Comment:No Interpretation LDL Cholesterol 0 mg/dL Comment:No Interpretation Blood Venous blood specimen / Unknown Historical Provider [facility] BLOOD ORDER[facility] * Depression Screening (02/04/2024) [facility] Depression Screening Abstracted [facility] Provider [facility] Pap Smear (04/24/2022) [facility] Pap smear No Interpretation , Abstracted [facility] Provider [facility] HIV Screening (06/10/2021) [facility] HIV Screening Abstracted [facility] Provider [facility] DX MAMMO INCL CAD UNI (11/11/2018 1:23 PM EST) Anatomical Region Laterality Modality Mammography 11/02/2018 4:07 PM EST Narrative 11/12/2018 6:27 PM EST RESULTS ADDENDUM: BREAST, LEFT, 3 O'CLOCK-CORE BIOPSY: - BENIGN FIBROADIPOSE TISSUE WITH FAT NECROSIS AND HEMORRHAGE. - THERE IS NO EVIDENCE OF MALIGNANCY. SEE COMMENT. COMMENT: THE FINDINGS MAY NOT REPRESENT A MASS LESION. CLINICAL AND RADIOGRAPHIC CORRELATION RECOMMENDED. ? SARWAT SPANN M.D. , PATHOLOGIST (CASE ELECTRONICALLY SIGNED 11 12 2018) Pathology results and imaging findings are concordant. No further imaging workup is required. Results were discussed by telephone with the patient's daughter, who acted as a manager process improvement for the patient, at 6:22 PM on 11/12/2018. Patient has ongoing workup of right breast calcifications scheduled with breast surgical consultation. SONO GUIDE NEEDLE BIOPSY LEFT BREAST CORE BIOPSY WITH CLIP PLACEMENT UNILATERAL LEFT DIGITAL DIAGNOSTIC MAMMOGRAM INDICATION: Upper outer left breast mass; biopsy recommended. COMPARISON: Screening mammogram from 10/09/2018. Diagnostic mammogram and limited left breast ultrasound from 11/02/2018. TECHNIQUE/FINDINGS: Following a discussion of risks, benefits, and alternatives to the procedure, written informed consent was obtained from the patient. After the patient was appropriately positioned for biopsy, a timeout was performed by the radiologist. The large, heterogeneous superficial lesion at the 3:00 axis of the left breast (upper outer quadrant) was again identified by ultrasound. With ultrasound guidance, the skin overlying the lesion was marked and subsequently prepped with Betadine. A total of 5 cc of 1% buffered lidocaine was used to anesthetize the superficial and deep soft tissues. Under ultrasound guidance, a trocar was advanced to the margin of the lesion and 4 core biopsy samples were obtained via 14-gauge Achieve needle utilizing non- throw technique. Following the final core sample, a metallic clip was placed at the biopsy site, at the edge of the lesion. The trocar was subsequently removed and manual pressure was applied at the end of the procedure. A total of 3 Steri-Strips were placed at the incision site and covered by an overlying dressing. All core samples were placed in a CytoLyt container and submitted for pathology analysis. The patient tolerated the procedure well with no immediate complications at the time of discharge. Verbal and written discharge instructions were provided to the patient prior to postbiopsy mammogram. POSTBIOPSY MAMMOGRAM: Single left MLO view was obtained demonstrating successful metallic biopsy clip placement, corresponding to the region of previously described imaging concern. An addendum will be issued and the patient will be notified when pathology results are available. IMPRESSION: IMPRESSION: Successful ultrasound-guided core needle biopsy of large, heterogeneous mass at the upper-outer quadrant of the left breast with satisfactory post biopsy mammogram clip placement. Addendum to follow when results become available. Procedure Note Yvonne Chapin DO - 11/23/2023 RESULTS ADDENDUM: BREAST, LEFT, 3 O'CLOCK-CORE BIOPSY: - BENIGN FIBROADIPOSE TISSUE WITH FAT NECROSIS AND HEMORRHAGE. - THERE IS NO EVIDENCE OF MALIGNANCY. SEE COMMENT. COMMENT: THE FINDINGS MAY NOT REPRESENT A MASS LESION. CLINICAL AND RADIOGRAPHIC CORRELATION RECOMMENDED. ? SARWAT SPANN M.D. , PATHOLOGIST (CASE ELECTRONICALLY SIGNED 11 12 2018) Pathology results and imaging findings are concordant. No further imagingworkup is required. Results were discussed by telephone with the patient's daughter, who actedas a manager process improvement for the patient, at 6:22 PM on 11/12/2018. Patient has ongoing workup of rightbreast calcifications scheduled with breast surgical consultation. SONO GUIDE NEEDLE BIOPSY LEFT BREAST CORE BIOPSY WITH CLIP PLACEMENT UNILATERAL LEFT DIGITAL DIAGNOSTIC MAMMOGRAM INDICATION: Upper outer left breast mass; biopsy recommended. COMPARISON: Screening mammogram from 10/09/2018. Diagnostic mammogram andlimited left breast ultrasound from 11/02/2018. TECHNIQUE/FINDINGS: Following a discussion of risks, benefits, and alternatives to theprocedure, written informed consent was obtained from the patient. After the patient was appropriately positioned for biopsy, a timeout wasperformed by the radiologist. The large, heterogeneous superficial lesion at the 3:00 axisof the left breast (upper outer quadrant) was again identified by ultrasound. With ultrasoundguidance, the skin overlying the lesion was marked and subsequently prepped with Betadine. A total of 5 cc of 1% buffered lidocaine was used to anesthetize thesuperficial and deep soft tissues. Under ultrasound guidance, a trocar was advanced to the margin ofthe lesion and 4 core biopsy samples were obtained via 14-gauge Achieve needle utilizingnon-throw technique. Following the final core sample, a metallic clip was placed at the biopsysite, at the edge of the lesion. The trocar was subsequently removed and manual pressure wasapplied at the end of the procedure. A total of 3 Steri-Strips were placed at the incision siteand covered by an overlying dressing. All core samples were placed in a CytoLyt container and submitted forpathology analysis. The patient tolerated the procedure well with no immediate complicationsat the time of discharge. Verbal and written discharge instructions were provided to thepatient prior to postbiopsy mammogram. POSTBIOPSY MAMMOGRAM: Single left MLO view was obtained demonstratingsuccessful metallic biopsy clip placement, corresponding to the region of previously describedimaging concern. An addendum will be issued and the patient will be notified when pathologyresults are available. IMPRESSION: IMPRESSION: Successful ultrasound-guided core needle biopsy of large,heterogeneous mass at the upper-outer quadrant of the left breast with satisfactory post biopsymammogram clip placement. Addendum to follow when results become available. Amie Sanchez CNM IMG BI PROCEDURES from Last 3 Months or Most Recently Relevant to Health Maintenance Care Teams Master Lay Out Specialist Relationship Specialty Start Date End Date Robert Mccollum [address] [place], [place] PCP - General Internal Medicine 05/02/22
--- OUTSIDE RECORDS SUMMARY | 2024-11-15 11:10 | XMS_ITS | Encounter Summary ---
Author Organization [employer] Address [address] [facility] 7 [place] [address] Care Team Providers Care Rehabilitation Coordinator Name Role Phone Robert Mccollum MD Primary Care Prov ider Reason for Visit * Reason Onset Date Comments triage 10/31/2024 Encounter Details Date Type Department Care Team ([facility] st Contact Info) Description 10/31/2024 Telephone [facility] [address] [place] [address] Robert Mccollum MD [address] [place] [address] triage Social History Tobacco Use Types Packs/Day Years Used Date Smoking Tobacco: Never Passive Smoke Exposure: Never Smokeless Tobacco: Never Depression Answer Date Recorded Patient Health Questionnaire-9 Score 0 09/29/2022 Housing Stability Answer Date Recorded What is [...] Date Recorded Patient Health Questionnaire-2 Score 0 11/17/2023 Comments Unknown Sex and Gender Information Value Date Recorded Sex Assigned at Female 08/18/2022 10:32 AM EDT Legal Sex Female 10:32 AM EDT Gender Identity Choose not to disclose 10:32 AM EDT Sexual Orientation Choose not to disclose 2021 10:32 AM EDT documented as of this encounter Miscellaneous Notes * Telephone Encounter - Elizabeth Riley RN - 10/31/2024 4:17 PM EST called pt to triage, spoke to pt. through [employer]. pt states her BP has been up and down since her TKR surgery about 2 months ago. pt states last BP was 160/90 and came down later inthe day to 130/80. pt states mild headaches, and intermittent dizziness. pt requesting appt with PCP. pt denies severe dizziness or falls, vomiting, severe headache, or other associated symptoms or illness symptoms. given appt 11/03 at 4:00 for exam. advised home care: rest, fluids, take BP medications as prescribed, and call back as needed. pt reports good compliance with medications. insurance verified. pt understands and agrees with plan. Protocol Used: Blood Pressure - High (Adult) Protocol-Based Disposition: See in Office or Video Visit within 3 Days Video visit offer not recorded Positive Triage Question: * Systolic BP >= 160 OR Diastolic >= 100 * All higher-acuity triage questions were negative Care Advice Discussed: * High Blood Pressure * High Blood Pressure - Lifestyle Changes * How to Check Your Blood Pressure? * Reasons To Call Back - Headache, blurred vision, difficulty talking, or difficulty walking occurs - Chest pain or difficulty breathing occurs - You become worse * Telephone Encounter - Jennifer Wilson - 10/31/2024 3:41 PM EST Pt requesting appt w/ pcp, states since knee surgery back in July, pt has been experiencing dizziness on and off and blood pressure has been up and down not stable. Pls call pt . [place] documented in this encounter Plan of Treatment Not on file documented as of this encounter Visit Diagnoses Not on filedocumented in this encounter Additional Health Concerns Assessment Noted Time PHQ-9 Depression Total Score: 0 09/29/20 22 9:25 AM EST documented as of this encounter Care Teams Rehabilitation Coordinator Relationship Specialty Start Date End Date Robert Mccollum MD [address] [place] [id number] PCP - General Internal Medicine 02/24/20 documented as of this encounter
--- OUTSIDE RECORDS SUMMARY | 2024-11-15 11:10 | XMS_ITS | Clinical Summary ---
Author Organization [employer] Address [address] [facility] 7[address] [place] [address] Care Team Providers Care Information Services Tech Name Role Phone Robert Mccollum MD Primary Care Prov ider Allergies No known active allergies Medications * This document contains information received from the source organization and may not represent a complete record from that organization. methotrexate 2.5 MG tabletIndications :Psoriasis Follow directions carefully, and ask to explain any part you do not understand. Take exactly as directed. 24 tablet 2 3 Active methotrexate 2.5 MG tabletIndications :Psoriasis 6 tabs once a weeks 24 tablet 2 3 Active ustekinumab (Stelara) injectionIndicati ons:Psoriasis Inject 1 mL (90 mg) under the skin every 3 (three) months. Starter: 90 mg day 1, 90 mg day 30, 90 mg every 3 months. Prefilled syringes. 1 mL 2 3 Active chlorthalidone (Hygroton) 25 MG tablet Take 1 tablet (25 mg) by mouth Once per day. 90 tablet 3 4 06/29/20 25 Active losartan (Cozaar) 100 MG tabletIndications :Benign essential hypertension Take 1 tablet (100 mg) by mouth Once per day. 90 tablet 3 4 Active ferrous sulfate (FerrouSul) 325 (65 Fe) MG tablet Take 1 tablet (325 mg) by mouth with breakfast. 30 tablet 4 06/29/20 25 Active spironolactone (Aldactone) 100 MG tablet Take 1 tablet (100 mg) by mouth Once per day. 30 tablet 4 Active Active Problems Problem Noted Date Diagnosed Date Other fatigue 11/03/2024 Assessment & Plan (11/03/2024 6:24 PM EST): Most likely related to depression, but will order blood work to evaluate secondary causes Current mild episode of cathy r depressive disorder without prior episode 11/03/2024 Assessment & Plan (11/03/2024 6:24 PM EST): Will refer to , no suicidal/hoicidal ideas, Preop examination 06/29/2024 Assessment & Plan (06/29/2024 7:57 PM EDT): Patient will undergo left knee replacement Denied chest pain/shortness of breath or dizziness EKG was found with asymptomatic sinus bradycardia Blood pressure was elevated today will follow up in 1 week to decide if she can be cleared for surgery Blood work sent will follow up in 1 week Iron deficiency anemia 07/15/2023 Assessment & Plan (02/15/2024 10:50 AM EDT): On oral replacement every other day, pending screening colonoscopy Assessment & Plan (11/17/2023 10:51 AM EST): Followed by hematology, no changes will be made, patient tolerating oral replacements Assessment & Plan (07/15/2023 9:32 AM EDT): Patient has been on oral iron replacement, continues with low iron levels will refer to hematology for evaluation and possible iv iron replacement Screening for colon cancer 07/15/2023 Assessment & Plan (11/03/2024 6:25 PM EST): Will refer to gastroenterology for screening colon cancer Assessment & Plan (07/15/2023 9:34 AM EDT): Will refer for screening colon cancer Chronic pain of right knee 06/26/2023 Assessment & Plan (06/26/2023 2:38 PM EDT): Patient presented with chronic knee pain was prescribed Oxycodone 5mg. Encounter for screening mamm ogram for malignant neoplasm of breast 09/29/2022 Assessment & Plan (09/29/2022 9:41 AM EST): Mammogram order will be placed Anemia 09/24/2022 Assessment & Plan (09/29/2022 9:40 AM EST): She has been taking ferrous sulfate, since surgery her vaginal bleeding stopped, new labs will be ordered Benign essential hypertension 06/22/2018 Assessment & Plan (11/03/2024 6:25 PM EST): Controlled, keep low sodium diet and exercise as tolerated, continue same treatment Assessment & Plan (07/06/2024 1:12 PM EDT): Controlled bp reading as follow: 123/83 140/85 125/82 140/85 140/80 123/85 130/85 134/85 140/85 118/81 128/85 Based home bp reading and previous visit she is cleared for surgery, discussed to stop NSAIDS and related components 7 days prior procedure Patient is a low risk for medium risk procedure Please refer to previous note for more information Assessment & Plan (06/29/2024 7:55 PM EDT): Above target, but patient refer has been stable at home, she did not brought her bp log diary, will follow up in 1 week, Assessment & Plan (06/06/2024 10:54 AM EDT): Controlled, keep low sodium diet and exercise as tolerated, no changes will be made Assessment & Plan (02/15/2024 10:49 AM EDT): Patient keeps losing weight, currently on 205, her bp has remained stable, on losartan/chlorthalidone, reviewed, labs no changes will be made, follow up in 4 months Assessment & Plan (11/17/2023 10:51 AM EST): Controlled, continue losartan/chlorthalidone/aldactone, reinforced low sodium diet, she has been losing weight almost 15lbs in the last 2 months, there is a possibility meds will need to be readjusted in the future Assessment & Plan (07/15/2023 9:33 AM EDT): Controlled, on losartan 100mg/chlorthalidone 25mg and spironolactone 25mg, followed by nephrology, reinforced low sodium diet and exercise Assessment & Plan (05/07/2023 12:48 PM EDT): Continue with current regimen: ?? Hydralazine 25mg TID ?? Chlorthalidone 25mg daily ?? Losartan 100mg daily Recently had appt with Nephrology for HTN and reports was started on new medication. Unsure name of med, but per [facility] rec, spironolactone 100mg daily was rx by Dr. Tomlin last week. -Encouraged to continue monitoring BP readings at home -ED precautions reviewed Assessment & Plan (01/14/2023 9:32 AM EDT): Not at target, will increase hydralazine to 25mg ID, continue losartan and chlorthalidone, will place nephrology consult for reccomendations Assessment & Plan (12/31/2022 10:21 AM EDT): Ranging from 150/90 to 122/90, will add hydralazine 10mg, reinforced low sodim diet and exercise as tolerated, will schedule televisit in 6 weeks Assessment & Plan (10/09/2022 12:17 PM EST): Patient blood pressure is better controlled with addition of hydralazine, she refers today was 130/80, she had 1 outlier above 140/90, will leave on current medications, and will follow up in 6 weeks, reinforced low sodium diet and exercise as tolerated, keep bp log Assessment & Plan (09/29/2022 9:40 AM EST): Improved but not at target, she refers stopped taking her felodipine due to contipation and feeling palpitaiton, told to continue on losartan/chlorthalidone will add hydralazine to be taken BID, will follow up in 1 month Seasonal allergies 06/22/2018 Primary osteoarthritis of knees, bilateral 06/22 Assessment & Plan (05/07/2023 12:50 PM EDT): ?? Acute on chronic flare, encouraged to continue with symptomatic management at home ?? Currently established with Ortho, although not interested in further steroid injection at this time ?? In agreement with referral to PT Encounters * This document contains information received from the source organization and may not represent a complete record from that organization. Date Type Department Care Team Description 11/03/2024 4:00 PM EST Office Visit [facility] [address] [place] [address] Robert Mccollum MD Encounter for immunization (Primary Dx); Other fatigue; Current mild episode of major depressive disorder without prior episode (CMS/HCC); Benign essential hypertension; Screening for colon cancer 11/03/2024 Travel 11/03/2024 Telephone [facility] [address] [place] [address] Robert Mccollum MD Chart Prep 10/31/2024 Telephone [facility] [address] [place] [address] Robert Mccollum MD triage from Last 3 Months Immunizations Name Administration Dates Next Due Influenza injectable quadriv alent IIV4 with preservative 08/26/2017 Influenza injectable quadrivalent preservative f ree 09/24/2021 Influenza, seasonal, injectable, preservative fr ee 06/29/2024 Moderna Covid-19 Vaccine 12+ 03/27/2021,02/28/20 21 Tdap 11/03/2024 Social History Tobacco Use Types Packs/Day Years Used Date Smoking Tobacco: Never Passive Smoke Exposure: Never Smokeless Tobacco: Never Tobacco Cessation:Counseling Given: Not Answered Alcohol Use Standard Drinks/Week Comments Never 0 [...] not to disclose 2021 10:32 AM EDT Last Filed Vital Signs Vital Sign Reading Time Taken Comments Blood Pressure 138/76 11/03/2024 4:01 PM EST Pulse 84 11/03/2024 4:01 PM EST Temperature 37 ??C (98.6 ??F) 11/03/2024 4:01 PM EST Respiratory Rate 20 11/03/2024 4:01 PM EST Oxygen Saturation 99% 07/14/2023 10:11 AM EDT Inhaled Oxygen Concentration - - Weight 93.9 kg (207 lb) 11/03/2024 4:01 PM EST Height 162.6 cm (5' 4 ) 11/03/2024 4:01 PM EST Body Mass Index 35.53 11/03/2024 4:01 PM EST Plan of Treatment Health Maintenance Due Date Last Done Comments CT Colonography 1972 Colonoscopy 1972 Colorectal Cancer Screening 1972 Dental X-Ray: Full Mouth 1972 FIT DNA/Cologuard 1972 FIT 1972 FOBT 1972 Sigmoidoscopy 1972 Alcohol/Substance Use Screening 1984 Family Planning (PISQ) 1987 Hepatitis B Vaccines (1 of 3 - 19+ 3-dose series) 1991 Zoster Vaccines (1 of 2) 2022 Dental Prophylaxis 08/29/2023 02/25/2023 Dental Oral Exam 09/18/2023 03/17/2023 Dental X-Ray: Bitewings 03/18/2024 03/17/2023 COVID-19 Vaccine ( season) 2024 11/05/2021, 03/27/2021, 02/27/2021 SDOH Screening 02/14/2025 02/15/2024 Depression Screening 11/03/2025 11/03/2024, 11/03/19 Tobacco Screening 11/03/2025 11/03/2024 Mammogram 02/08/2026 02/09/2024, 10/03/2022 Lipid Panel 06/29/2029 06/29/2024, 12/18, 08/12/2022, Additional history exists DTaP/Tdap/Td Vaccines (2 - Td or Tdap) 11/03/2034 11/03/2024 RSV Patients and Patients Aged 60 years or older (1 - 1-dose 75+ series) 2047 Cervical Cancer Screening Discontinued HPV/Cotest Discontinued 09/18/2020 Pap Smear Discontinued 09/18/2020, 09/18/2020 HIV Screening Completed 06/10/2021 Hepatitis C Screening Completed 06/29/2024 Influenza Vaccine Completed 06/29/2024, , 08/26/2017 HIB Vaccines Aged Out No longer eligi [...] patient's age to complete this topic Meningococcal Vaccine Aged Out No josé miguel pavan eligible based on patient's age to complete this topic Pneumococcal Vaccine: Pediatrics (0 to 5 Years) and At-Risk Patients (6 to 64 Years) Aged Out No longer eligible based on patient's age to complete this topic RSV under 20 months Aged Out No longe r eligible based on patient's age to complete this topic Rotavirus Vaccines Aged Out No longer eligible based on patient's age to complete this topic Procedures Procedure Name Priority Date/Time Associated Diagnosis Comments HEPATITIS C AB W/REFL TO HCV RNA, QN, PCR Routine 06/29/2024 11:30 AM EDT Benign essential hypertension LIPID PANEL, STANDARD Routine 06/29/2024 11:30 AM EDT Benign essential hypertension BI MAMMOGRAM SCREENING TOMOSYNTHESIS BILATERAL Routine 02/09/2024 10:25 AM EDT BITEWINGS - 2 RADIOGRAPHIC IMAGES Routine 03/17/2023 2:00 PM EDT PERIODIC ORAL EVALUATION - ESTABLISHED PATIENT Routine 03/17/2023 2:00 PM EDT PROPHYLAXIS - ADULT Routine 02/25/2023 1 :00 PM EDT Accretions on teeth HIV 1/2 ANTIGEN/ANTIBODY, FOURTH GENERATION W/RFL Routine 06/10/2021 11:45 AM EDT HPV MRNA E6/E7 Routine 09/18/2020 4:09 PM EST HM PAP/HPV Routine 09/18/2020 from Last 3 Months or Most Recently Relevant to Health Maintenance Results * Hepatitis C Antibody with Reflex to HCV, RNA, Quantitative, Real-Time PCR (06/29/2024 11:30 AM EDT) Hepatitis C Antibody Nonreactive Nonreactive [facility] Comment:Antibodies to HCV no t detected; does not exclude early acuteHCV infection. Blood Venous blood specimen / Unknown 06/29/2024 11:30 AM EDT 06/29/2024 1:46 PM EDT us Robert Alejandro MD LAB BLOOD ORDERABL ES Final Result [facility] [address] [place] [phone] * (ABNORMAL) Lipid Panel, Standard (06/29/2024 11:30 AM EDT) Triglycerides 113 <150 mg/dL [facility] Comment:Desirable Triglyceri de: less than 150 mg/dLBorderline High Triglyceride 150-199 mg/dLHigh Triglyceride: 200-499 mg/dLVery High Triglyceride: greater than or equal to 5OO mg/dL Cholesterol 157 <200 mg/dL [facility] Comment:Desirable Cholestero l: less than 200 mg/dLBorderline High Cholesterol: 200-239 mg/dLHigh Cholesterol: greater than 239 mg/dL LDL Cholesterol Calculated 98 <100 mg/dL [facility] Comment:Desirable LDL: less than 100 mg/dLNear Optimal/Above Optimal LDL: 110- 129 mg/dLBorderline High LDL: 130-159 mg/dLHigh LDL: 160-189 mg/dLVery High LDL: greater than or equal to 190 mg/dL HDL Cholesterol 37(L) >40 mg/dL [facility] Comment:Desirable HDL: great er than 40 mg/dL Note: This HDL assay may give artificially low results in patients with liver disease. Blood Venous blood specimen / Unknown 06/29/2024 11:30 AM EDT 06/29/2024 1:46 PM EDT us Robert Alejandro MD LAB BLOOD ORDERABL ES Final Result [facility] [address] [place] [phone] * BI Mammogram Screening Tomosynthesis Bilateral (02/09/2024 10:25 AM EDT) Anatomical Region Laterality Modality Breast Bilateral Mammography 02/09/2024 10:2 5 AM EDT Narrative 02/23/2024 1:14 PM EDT ? [facility] ? [address] ?[place] [address] ? Mammography Report ? Signed ? Patient: Chino Matos,Susan ?MR#: [id number] ?? [id number] ? : 1970 ?Acct:[id number] ? Age/Sex: 53 / F ?ADM Date: 04/23/24 ? Loc: HO.MAMMO ? Attending Dr: Robert Alejandro MD ? Ordering Physician: Robert Mccollum MD ?Res ?? ults: 2Benign Findings ? Date of Service: 02/09/24 ?Follow Up: 1 Year From Orig ?? inal Mammogram ? Procedure(s): MM tomosynthesis screening BI ?? Accession Number(s): [id number] ? cc: Robert Mccollum MD ? EXAMINATION: ?? MM SCREENING DIGITAL BREAST TOMOSYNTHESIS, BILATERAL ? CLINICAL INFORMATION: ? Screening. Asymptomatic. 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 circumscribed mass. ? COMPARISON: ?? Mammography: 10/03/2022, 12/01/2018, 11/02/2018, and 10/09/2018 ?? ([place]). ? TECHNIQUE: ?? Digital breast tomosynthesis is performed in both the craniocaudal and ?? mediolateral oblique views along with computer-aided detection (CAD). ?? Synthesized 2D images are generated from the tomosynthesis. ? FINDINGS: ?? The breasts are extremely dense, which lowers the sensitivity of ?? mammography (ACR BI-RADS breast composition Category d). ? Within the left breast, there is an oval circumscribed large mass ?? measuring up to 5 x 4 cm with both fat and soft tissue density, and ?? biopsy clip present in the posterolateral margin, findings most ?? consistent with a benign hamartoma. ?? Group of calcifications in the posterior lateral right breast along the ?? nipple line on the right MLO again noted, largely unchanged from 2018 ?? and the 10:00 position of the right breast. Prior ultrasound-guided ?? biopsy which shows these have likely been sampled and were consistent ?? with dystrophic fibroadenomatoid calcifications. ?? Biopsy clip present right breast upper inner quadrant, posterior one ?? third, relating to benign fibroadenoma. Biopsy clip superior right ?? breast, also related to benign fibroadenoma. There are large dystrophic ?? calcifications in the anterior right breast. ?? There are stable small oval circumscribed masses in both breasts, most ?? likely cysts and/or fibroadenomas. ?? Prominent lymph nodes noted in the both axilla, also stable. ? MM/MM tomosynthesis screening BI ?? IMPRESSION: ?? Stable appearance of both breasts with numerous stable benign findings ?? as discussed above. ? No findings suspicious for malignancy. ? ASSESSMENT: ? BI-RADS BI-RADS 2 - Benign Findings ? RECOMMENDATION: ?? Routine annual mammography screening. ? 1 year F/U ? This examination should not preclude the clinical evaluation of a ?? suspicious palpable abnormality. ? This patient's information was entered into a reminder system with a ?? target due date for their next mammogram. ? Dictated By: ?David Hines MD ? Signed By: ?<Electronically signed by David Hines MD in OV> ?02/23/24 1310 ? DD/ 1025 ? TD/TT: ? Training Consultant: ? Procedure Note [place] [facility] - 02/23/2024 [facility] [address] [place] [address] [place] [address] Mammography Report Signed Patient: ChinoSusan GraysonMR#: [id number] : 1970Acct:[id number] Age/Sex: 53 / FADM Date: 02/09/24 Loc: HO.MAMMO Attending Dr: Robert Alejandro MD Ordering Physician: Robert Mccollum ults: 2Benign Findings Date of Service: 02/09/24Follow Up: 1 Year From [facility]a Mammogram Procedure(s): MM tomosynthesis screening BI Accession Number(s): [id number] cc: Robert Mccollum MD EXAMINATION: MM SCREENING DIGITAL BREAST TOMOSYNTHESIS, BILATERAL CLINICAL INFORMATION: Screening. Asymptomatic. History of 2 separate benign biopsies right breast yielding fibroadenoma, and benign biopsy left sided oval circumscribed mass. COMPARISON: Mammography: 10/03/2022, 12/01/2018, 11/02/2018, and 10/09/2018 ([place]). TECHNIQUE: Digital breast tomosynthesis is performed in both the craniocaudal and mediolateral oblique views along with computer-aided detection (CAD). Synthesized 2D images are generated from the tomosynthesis. FINDINGS: The breasts are extremely dense, which lowers the sensitivity of mammography (ACR BI-RADS breast composition Category d). Within the left breast, there is an oval circumscribed large mass measuring up to 5 x 4 cm with both fat and soft tissue density, and biopsy clip present in the posterolateral margin, findings most consistent with a benign hamartoma. Group of calcifications in the posterior lateral right breast along the nipple line on the right MLO again noted, largely unchanged from 2018 and the 10:00 position of the right breast. Prior ultrasound-guided biopsy which shows these have likely been sampled and were consistent with dystrophic fibroadenomatoid calcifications. Biopsy clip present right breast upper inner quadrant, posterior one third, relating to benign fibroadenoma. Biopsy clip superior right breast, also related to benign fibroadenoma. There are large dystrophic calcifications in the anterior right breast. There are stable small oval circumscribed masses in both breasts, most likely cysts and/or fibroadenomas. Prominent lymph nodes noted in the both axilla, also stable. MM/MM tomosynthesis screening BI IMPRESSION: Stable appearance of both breasts with numerous stable benign findings as discussed above. No findings suspicious for malignancy. ASSESSMENT: BI-RADS BI-RADS 2 - Benign Findings RECOMMENDATION: Routine annual mammography screening. 1 year F/U This examination should not preclude the clinical evaluation of a suspicious palpable abnormality. This patient's information was entered into a reminder system with a target due date for their next mammogram. Dictated By: David Hines MD Signed By: <Electronically signed by David Hines MD in OV> 02/23/24 1310 DD/ 1025 TD/TT: Training Consultant: Robert Alejandro MD IMG BI PROCEDURES Final Result * HIV 1/2 ANTIGEN/ANTIBODY,FOURTH GENERATION W/RFL (06/10/2021 11:45 AM EDT) HIV-1/2 ANTIGEN AND ANTIBODIES, 4TH GENERATION W/ REFLEX NON-REACT LINDA NON-REACT LINDA [facility] Comment: HIV-1 antigen and HIV-1/HIV-2 antibodies were not detected. There is no laboratory evidence of HIV infection. ?? PLEASE NOTE: This information has been disclosed to you from records whose confidentiality may be protected by state law. ??If your state requires such protection, then the state law prohibits you from making any further disclosure of the information without the specific written consent of the person to whom it pertains, or as otherwise permitted by law. A general authorization for the release of medical or other information is NOT sufficient for this purpose. ? For additional information please refer to http://education.[employer].Top Hat/faq/GIX659 (This link is being provided for informational/ educational purposes only.) ? The performance of this assay has not been clinically validated in patients less than 2 years old. ?? 06/10/2021 11:4 5 AM EDT Robert Alejandro MD LAB BLOOD ORDERABL ES Final Result [facility] [employer] [facility] [address] * HPV mRNA E6/E7 (09/18/2020 4:09 PM EST) HPV nRNA E6/E7 Not Detected Not Detected [facility] Comment: This test was performed using the APTIMA HPV Assay ([employer] This assay detects E6/E7 viral messenger RNA (mRNA) from 14 high-risk HPV types (16,18,31,33,35,39,45,51,52,56,58,59,66,68). ?? The analytical performance characteristics of this assay have been determined by [employer]. The modifications have not been cleared or approved by the FDA. This assay has been validated pursuant to the CLIA regulations and is used for clinical purposes. 09/18/2020 4:09 PM EST Floresita Vásquez CNM LAB BLOOD ORDERABLES [place] Result Performing Organization Address City/State/[facility] Co de Phone Number [facility] [address] * Pap Smear (09/18/2020) Pap smear PERFORMED Historical Provider MD HEALTH MAINTENANCE Final Result from Last 3 Months or Most Recently Relevant to Health Maintenance Insurance [employer] DENTAL - HSN PARTIAL (MEDICAID) Care Teams Information Services Tech Relationship Specialty Start Date End Date Robert Mccollum MD [address] [place] [phone] PCP - General Internal Medicine 02/24/20
--- OUTSIDE RECORDS SUMMARY | 2024-11-15 11:10 | XMS_ITS | Encounter Summary ---
Author Organization [employer] Address [address] [facility] [address] [place] [address] Care Team Providers Care Documentation Billing Clerk Name Role Phone Robert Mccollum MD Primary Care Prov ider Encounter Details Date Type Department Care Team (Late st Contact Info) Description 11/05/2022 Abstract [facility] [address] [place], [place] [phone] Robert Mccollum MD [address] [place] [address] Social History Tobacco Use Types Packs/Day Years Used Date Smoking Tobacco: Never Smokeless Tobacco: Never Depression Answer Date [...] not to disclose 2021 10:32 AM EDT COVID-19 Exposure Response Date Recorded In the last 10 days, have yo u been in contact with someone who was confirmed or suspected to have Coronavirus/COVID-19? No / Unsure 10/27/2022 12:50 PM EST documented as of this encounter Plan of Treatment Not on file documented as of this encounter Visit Diagnoses Not on filedocumented in this encounter Additional Health Concerns Assessment Noted Time PHQ-9 Depression Total Score: 0 09/29/20 9:25 AM EST documented as of this encounter Care Teams Documentation Billing Clerk Relationship Specialty Start Date End Date Robert Mccollum MD [address] [place] [phone] PCP - General Internal Medicine 02/24/20 documented as of this encounter
--- OUTSIDE RECORDS SUMMARY | 2024-11-15 11:10 | XMS_ITS | Clinical Summary ---
Author Organization [facility] Address [address] [place] [address] Care Team Providers Care Asphalt Coater Name Role Phone Robert Luz MD Primary Care Provider [phone] Allergies No known active allergies Social History Tobacco Use Types Packs/Day Years Used Date Smoking Tobacco: Never Assessed Sex and Gender Information Value Date Recorded Sex Assigned at Not on file Gender Identity Not on file Sexual Orientation Not on file Job Start Date Occupation Industry Not on file Not on file Not on file Last Filed Vital Signs Vital Sign Reading Time Taken Comments Blood Pressure 150/90 2022 3:40 PM EDT Pulse 64 2022 3:40 PM EDT Temperature 36.4 ??C (97.6 ??F) 2022 3:40 PM ED T Respiratory Rate - - Oxygen Saturation 100% 2022 9:10 AM EDT Inhaled Oxygen Concentration - - Weight - - Height - - Body Mass Index - - Plan of Treatment Health Maintenance Due Date Last Done Comments Hepatitis B Vaccines (1 of 3 - 3-dose series) 1972 Hepatitis C Screening 1972 COVID-19 Vaccine (#1) 1972 Depression Screening 1984 Preventative Health Evaluation 1990 DTap / Tdap / Td (1 - Tdap) 1991 Cervical Cancer Screening (P ap Smear) 1993 Colon Cancer Screening (Colonoscopy) 2017 Breast Cancer Screening (Mammogram) 2022 Shingrix-Zoster Vaccine (1 of 2) 2022 Influenza Vaccine (#1) 2024 Pneumococcal Vaccine Aged Out No long er eligible based on patient's age to complete this topic RSV Ped < 20 months Aged Out No longe r eligible based on patient's age to complete this topic Care Teams Asphalt Coater Relationship Specialty Start Date End Date Robert Luz MD [address] [place] [address] PCP - General Internal Medicine 05/02/22
--- OUTSIDE RECORDS SUMMARY | 2024-11-15 11:10 | XMS_ITS | Encounter Summary ---
Author Organization [employer] Address [address] [facility] 7t [place] [address] Care Team Providers Care Test Desk Supervisor Name Role Phone Robert Mccollum MD Primary Care Prov ider Encounter Details Date Type Department Care Team ([facility] st Contact Info) Description 11/12/2022 Telephone C [facility] [address] [place], [place] [phone] Robert Mccollum MD [address] [place] [address] Social History Tobacco Use Types Packs/Day Years [...] suspected to have Coronavirus/COVID-19? No / Unsure 11/11/2022 9:01 AM EST documented as of this encounter Miscellaneous Notes * Telephone Encounter - Daria Lundberg RN - 11/12/2022 3:14 PM EST Please see message below. folic acid 1 mg in sodium chloride 0.9 % 50 mL IVPB. Under med tab, the status states print instead of electronically sent. Please review and send Rx to the pharmacy. Thanks * Telephone Encounter - Linette Clifton - 11/12/2022 10:56 AM EST Tc from pt calling to [facility] requesting a folic acid medication that was talked on yesterday appt with Dr. Luz. Technical Support Coordinator see on assessment/plan ( - folic acid 1 mg in sodium chloride 0.9 %50 mL IVPB; Infuse 1 mg into a venous catheter 1 (one) time for 1 dose.) Technical Support Coordinator is confused also ptplease contact pt to clarify. Technical Support Coordinator check but is no script on [facility] . PCP DR. Luz documented in this encounter Plan of Treatment Not on file documented as of this encounter Visit Diagnoses Diagnosis Preventative health care- Primary Routine general medical examination at a health care facility documented in this encounter Additional Health Concerns Assessment Noted Time PHQ-9 Depression Total Score: 0 09/29/20 22 9:25 AM EST documented as of this encounter Care Teams Test Desk Supervisor Relationship Specialty Start Date End Date Robert Mccollum MD [address] [place] [address] PCP - General Internal Medicine 02/24/20 documented as of this encounter
--- OUTSIDE RECORDS SUMMARY | 2024-11-15 11:11 | XMS_ITS | Clinical Summary ---
Author Organization [facility] Address [address] [address] Phone Care Team Providers Care Crime Lab Analyst Name Role Phone Robert Luz Primary Care Provider [phone] Allergies No known active allergies Medications acetaminophen (TYLENOL 8 HOUR) 650 MG 8 hr tablet Take 2 tablets by mouth Active chlorthalidone 25 MG tablet Take 1 tablet by mouth 1 (one) time each day 03/07/2020 Active ferrous sulfate 325 (65 Fe) MG EC tablet Take 1 tablet by mouth in the morning and 1 tablet in the evening. Active omeprazole (PriLOSEC) [address] capsule Take 1 capsule by mouth Active losartan (COZAAR) 100 MG tablet Take 100 mg by mouth in the morning. 12/09/2022 Active spironolactone (Aldactone) 100 MG tabletIndicatio ns:Hypertensive disorder Take 1 tablet (100 mg total) by mouth 1 (one) time each day 90 tablet 3 07/20/2024 5 Active Active Problems Problem Noted Date Diagnosed Date Hypokalemia 07/20/2024 Hypertensive disorder 04/28/2023 Encounter for screening mamm ogram for malignant neoplasm of breast 09/29/2022 06/08/2023 Overview (06/08/2023): Last Assessment & Plan: Mammogram order will be placed Anemia 09/24/2022 06/08/2023 Overview (06/08/2023): Last Assessment & Plan: She has been taking ferrous sulfate, since surgery her vaginal bleeding stopped, new labs will be ordered Benign essential hypertension 06/22/2018 Overview (04/30/2023): Last Assessment & Plan: Not at target, will increase hydralazine to 25mg ID, continue losartan and chlorthalidone, will place nephrology consult for reccomendations Primary gonarthrosis, bilateral 06/22/2018 06/08/2023 Seasonal allergy 06/22/2018 06/08/2023 Immunizations Name Administration Dates Next Due Influenza, Quadrivalent, Preservative Free 09/24 Influenza, Quadrivalent, With Preservative 08/26 Moderna SARS-COV-2 03/27/2021,02/27/2021 Family History Medical History Relation Comments Hypertension Mother Relation Status Comments Mother Social History Tobacco Use Types Packs/Day Years Used Date Smoking Tobacco: Never Smokeless Tobacco: Never Tobacco Cessation:Counseling Given: Not Answered Alcohol Use Standard Drinks/Week Comments No 0 (1 standard drink = 0.6 oz pur e alcohol) Comments Unknown Sex and Gender Information Value Date Recorded Sex Assigned at Not on file Legal Sex Female 4:57 PM EST Gender Identity Not on file Sexual Orientation Not on file Last Filed Vital Signs Vital Sign Reading Time Taken Comments Blood Pressure 120/80 07/20/2024 1:17 PM EDT Pulse 72 07/20/2024 1:17 PM EDT Temperature - - Respiratory Rate - - Oxygen Saturation 97% 07/08/2023 1:53 PM EDT Inhaled Oxygen Concentration - - Weight 95.7 kg (211 lb) 07/20/2024 1:17 PM EDT Height - - Body Mass Index - - Plan of Treatment Upcoming Encounters Date Type Department Care Team (Late st Contact Info) Description 07/19/2025 10:00 AM EDT Office Visit [facility] [address] [address] Althea Crabtree ARNP [address] [address] Health Maintenance Due Date Last Done Comments Breast Cancer Screening 1972 Pneumococcal Vaccine: Pediat rics (0 to 5 Years) and At-Risk Patients (6 to 64 Years) (1 of 2 - PCV) 1978 Hepatitis B Vaccine (1 of 3 - 19+ 3-dose series) 1991 Colorectal Cancer Screening: Annual FOBT 2021 Colorectal Cancer Screening: Colonoscopy 2021 Colorectal Cancer Screening: Sigmoidoscopy 2021 Influenza Vaccine Completed 06/29/2024, , 08/26/2017 Insurance MEDICAID MEDICAID Care Teams Crime Lab Analyst Relationship Specialty Start Date End Date Robert Luz PCP - General Internal Medicine 01/15/23
--- OUTSIDE RECORDS SUMMARY | 2024-11-15 11:11 | XMS_ITS | Encounter Summary ---
Author Organization [employer] Address [address] [place] [address] 7 [place] [address] Care Team Providers Care Crm Marketing Analyst Name Role Phone Robert Mccollum MD Primary Care Prov ider Encounter Details Date Type Department Care Team (Latest Contact Info) Description 03/27/2022 Abstract [facility] CONVERSION[facility] Dental, Provider, DDS Social History Tobacco Use Types Packs/Day Years Used Date Smoking Tobacco: Never Assessed Comments Unknown Sex and Gender Information Value [...] Diagnoses Not on filedocumented in this encounter Care Teams Crm Marketing Analyst Relationship Specialty Start Date End Date Robert Mccollum MD [address] [place] [id number] PCP - General Internal Medicine 02/24/20 documented as of this encounter
--- OUTSIDE RECORDS SUMMARY | 2024-11-15 11:11 | XMS_ITS | Encounter Summary ---
Author Organization [employer] Address [address] [facility] 7 [place] [address] Care Team Providers Care Solar Energy System Installer Name Role Phone Robert Mccollum MD Primary Care Prov ider Reason for Visit * Reason Onset Date Comments Chart Prep 11/03/2024 Encounter Details Date Type Department Care Team ([facility] Contact Info) Description 11/03/2024 Telephone [facility] MED [facility] P[facility]S [address] [place] [address] Robert Mccollum MD [address] [place] [address] Chart Prep Social History Tobacco Use Types Packs/Day Years [...] encounter Miscellaneous Notes * Telephone Encounter - Jessica Wilhelm MA - 11/03/2024 10:07 AM EST Chart Prep Labs: not applicable Images: done Vaccines due: yes Referrals: n/a Screenings: colonoscopy Overdue care gaps: Sbirt, Oral Health, disability screening documented in this encounter Plan of Treatment Not on file documented as of this encounter Visit Diagnoses Not on filedocumented in this encounter Additional Health Concerns Assessment Noted Time PHQ-9 Depression Total Score: 8 11/03/19 25 4:21 PM EST documented as of this encounter Care Teams Solar Energy System Installer Relationship Specialty Start Date End Date Robert Mccollum MD [address] [place] [phone] PCP - General Internal Medicine 02/24/20 documented as of this encounter
--- OUTSIDE RECORDS SUMMARY | 2024-11-15 11:11 | XMS_ITS | Encounter Summary ---
Author Organization [employer] Address [address] [facility] 7t [place] [address] Care Team Providers Care Applications Intern Name Role Phone Robert Mccollum MD Primary Care Prov ider Encounter Details Date Type Department Care Team (Late st Contact Info) Description 10/08/2022 Orders Only [facility] MED[facility]INE [address] [place] [address] David Morataya MD [address] [place] [address] Psoriasis Social History Tobacco Use Types Packs/Day Years [...] suspected to have Coronavirus/COVID-19? No / Unsure 10/07/2022 10:10 AM EST documented as of this encounter Plan of Treatment Not on file documented as of this encounter Visit Diagnoses Diagnosis Psoriasis Other psoriasis documented in this encounter Additional Health Concerns Assessment Noted Time PHQ-9 Depression Total Score: 0 09/29/20 9:25 AM EST documented as of this encounter Care Teams Applications Intern Relationship Specialty Start Date End Date LuzRobert Gonzales MD [address] [place] [id number] PCP - General Internal Medicine 02/24/20 documented as of this encounter
--- OUTSIDE RECORDS SUMMARY | 2024-11-15 11:11 | XMS_ITS | Encounter Summary ---
Author Organization [employer] 2014[employer] Address [address] [facility] 7t [place] [address] Care Team Providers Care Auxiliary Equipment Operator Name Role Phone Robert Mccollum MD Primary Care Prov ider Encounter Details Date Type Department Care Team ([facility] st Contact Info) Description 04/28/2023 Orders Only [facility] MED & PEDS [address] [place], [place] [phone] David Morataya MD [address] [place] [address] Psoriasis (Primary Dx) Social History Tobacco Use Types Packs/Day Years [...] suspected to have Coronavirus/COVID-19? No / Unsure 04/16/2023 10:04 AM EDT documented as of this encounter Plan of Treatment Not on file documented as of this encounter Visit Diagnoses Diagnosis Psoriasis- Primary Other psoriasis documented in this encounter Additional Health Concerns Assessment Noted Time PHQ-9 Depression Total Score: 0 09/29/20 22 9:25 AM EST documented as of this encounter Care Teams Auxiliary Equipment Operator Relationship Specialty Start Date End Date Robert Mccollum MD [address] [place] [phone] PCP - General Internal Medicine 02/24/20 documented as of this encounter
--- OUTSIDE RECORDS SUMMARY | 2024-11-15 11:11 | XMS_ITS | Encounter Summary ---
Author Organization [employer] Address [address] [place] [address] [facility] [place] [address] Care Team Providers Care Client Analyst Name Role Phone Robert Mccollum MD Primary Care Prov ider Reason for Referral * Consultation (Routine) - Authorized Specialty Diagnoses / Procedures Referred By Karla godinez Referred To Contact Gastroenterology Diagnoses Screening for colon cancer Robert Mccollum MD [address] [place] [address] Phone: tel: fax: Gurpreet Sapp MD [address] [place] [address] Phone: tel: fax: Referral ID Status Reason Start Date Expiration Date Visits Requested Visits Authorized [id number] Authorized Specialty Services Required 11/03/2024 11/03/2025 1 1 * Consultation (Routine) - Closed Specialty Diagnoses / Procedures Referred By Contchasidy godinez Referred To Contact Behavioral Health Diagnoses Current mild episode of major depressive disorder without prior episode (CMS/HCC) Robert Mccollum MD [address] [place] [address] Phone: tel: fax: Referral ID Status Reason Start Date Expiration Date V isits Requested Visits Authorized [id number] Closed Specialty Services Required 11/03/2024 11/03/2025 1 1 Encounter Details Date Type Department Care Team (Late st Contact Info) Description 11/03/2024 4:00 PM EST Office Visit [facility] MED & PEDS [address] [place] [address] Robert Mccollum MD [address] [place] [address] Encounter for immunization (Primary Dx); Other fatigue; Current mild episode of major depressive disorder without prior episode (CMS/HCC); Benign essential hypertension; Screening for colon cancer Social History Tobacco Use Types Packs/Day Years [...] AM EDT documented as of this encounter Last Filed Vital Signs Vital Sign Reading Time Taken Comments Blood Pressure 138/76 11/03/2024 4:01 PM EST Pulse 84 11/03/2024 4:01 PM EST Temperature 37 ??C (98.6 ??F) 11/03/2024 4:01 PM EST Respiratory Rate 20 11/03/2024 4:01 PM EST Oxygen Saturation - - Inhaled Oxygen Concentration - - Weight 93.9 kg (207 lb) 11/03/2024 4:01 PM EST Height 162.6 cm (5' 4 ) 11/03/2024 4:01 PM EST Body Mass Index 35.53 11/03/2024 4:01 PM EST documented in this encounter Progress Notes * Robert Alejandro MD - 11/03/2024 4:00 PM EST Subjective Patient ID: Susan Matos is a 54 y.o. adult who presents for No chief complaint on file.. Hypertension This is a chronic problem. The problem is controlled. Pertinent negatives include no chest pain, headaches, palpitations, peripheral edema or shortness of breath. Review of Systems Respiratory: Negative for shortness of breath. Cardiovascular: Negative for chest pain and palpitations. Neurological: Negative for headaches. Objective Physical Exam Constitutional: Appearance: Normal appearance. Cardiovascular: Rate and Rhythm: Normal rate and regular rhythm. Heart sounds: No murmur heard. Pulmonary: Effort: Pulmonary effort is normal. No respiratory distress. Breath sounds: Normal breath sounds. No stridor. No wheezing or rhonchi. Neurological: General: No focal deficit present. Mental Status: Susan is alert and oriented to person, place, and time. Psychiatric: Mood and Affect: Mood normal. Behavior: Behavior normal. Assessment/Plan Problem List Items Addressed This Visit Benign essential hypertension Controlled, keep low sodium diet and exercise as tolerated, continue same treatment Screening for colon cancer Will refer to gastroenterology for screening colon cancer Relevant Orders Referral to Gastroenterology Other fatigue Most likely related to depression, but will order blood work to evaluate secondary causes Relevant Orders CBC auto differential Iron And Total Iron Binding Capacity Vitamin B12 (Cobalamin) and Folate Panel, Serum Vitamin D, 25-Hydroxy, Total, Immunoassay TSH W/Reflex to FT4 Comprehensive Metabolic Panel Current mild episode of major depressive disorder without prior episode (CMS/HCC) Will refer to BH, no suicidal/hoicidal ideas, Relevant Orders Referral to Behavioral Health Other Visit Diagnoses Encounter for immunization - Primary Relevant Orders TDAP VACCINE 7 yrs + (Completed) documented in this encounter Miscellaneous Notes * Assessment & Plan Note - Robert Alejandro MD - 11/03/2024 6:25 PM ESTAssociated Problem(s): Screening for colon cancer Will refer to gastroenterology for screening colon cancer * Assessment & Plan Note - Robert Alejandro MD - 11/03/2024 6:25 PM ESTAssociated Problem(s): Benign essential hypertension Controlled, keep low sodium diet and exercise as tolerated, continue same treatment * Assessment & Plan Note - Robert Alejandro MD - 11/03/2024 6:24 PM ESTAssociated Problem(s): Other fatigue Most likely related to depression, but will order blood work to evaluate secondary causes * Assessment & Plan Note - Robert Alejandro MD - 11/03/2024 6:24 PM ESTAssociated Problem(s): Current mild episode of major depressive disorder without prior episode (CMS/HCC) Will refer to BH, no suicidal/hoicidal ideas, documented in this encounter Plan of Treatment Scheduled Orders Name Type Priority Associated Diagnoses Orde r Schedule CBC auto differential Lab Routine Other fatigue Expected: 11/03/2024 (Approximate), Expires: 11/03/2025 Iron And Total Iron Binding Capacity Lab Routine Other fatigue Expected: 11/03/2024, Expires: 11/03/2025 Vitamin B12 (Cobalamin) and Folate Panel, Serum Lab Routine Other fatigue Expected: 11/03/2024 (Approximate), Expires: 11/03/2025 Vitamin D, 25-Hydroxy, Total, Immunoassay Lab Routine Other fatigue Expected: 11/03/2024 (Approximate), Expires: 11/03/2025 TSH W/Reflex to FT4 Lab Routine Other fatigue Expected: 11/03/2024 (Approximate), Expires: 11/03/2025 Comprehensive Metabolic Panel Lab Routine Other fatigue Expected: 11/03/2024 (Approximate), Expires: 11/03/2025 Scheduled Referrals Name Type Priority Associated Diagnoses Order Schedule Referral to Behavioral Health Outpatient Referral Routine Current mild episode of major depressive disorder without prior episode (CMS/HCC) Expected: 11/03/2024 (Approximate), Expires: 11/03/2025 Referral to Gastroenterology Outpatient Referral Routine Screening for colon cancer Expected: 11/03/2024 (Approximate), Expires: 11/03/2025 documented as of this encounter Visit Diagnoses Diagnosis Encounter for immunization- Primary Other fatigue Current mild episode of major depressive disorder without prior episode (CMS/HCC) Benign essential hypertension Essential hypertension, benign Screening for colon cancer Special screening for malignant neoplasms, colon documented in this encounter Additional Health Concerns Assessment Noted Time PHQ-9 Depression Total Score: 8 11/03/19 25 4:21 PM EST documented as of this encounter Care Teams Client Analyst Relationship Specialty Start Date End Date Robert Mccollum MD [address] [place] [id number] PCP - General Internal Medicine 02/24/20 documented as of this encounter
[2024-11-15 14:05] LABS: MANUAL DIFF FLAG NO
[2024-11-15 14:16] LABS: Basophils Absolute Auto 0.1 X10*3/uL (0.0-0.2); Basophils Percent Auto 0.7 % (0-2); Eosinophils Absolute Auto 0.7 X10*3/uL (0.0-0.4); Eosinophils Percent Auto 10.1 % (0-4); Hemoglobin 11.2 g/dl (12.0-16.0); Imm Gran Abs Auto 0.03 X10*3/uL (0.00-0.03); Imm Gran Pct Auto 0.4 % (0.0-0.4); Lymphocytes Absolute Auto 1.8 X10*3/uL (1.2-4.9); Mean Corpuscular Hemoglobin 27.5 pg (27.0-33.0); Mean Corpuscular Volume 85.8 fL (80.0-98.0); Monocytes Absolute Auto 0.5 X10*3/uL (0.1-1.2); Monocytes Percent Auto 7.3 % (2-11); Neutrophils Absolute Auto 4.1 x10*3/uL (2.0-8.3); Neutrophils Percent Auto 56.5 % (45-73); Platelet Count 342 X10*3/uL (160-400); Red Blood Count 4.08 X10*6/uL (4.20-5.50); Red Cell Distribution Width 13.6 % (11.0-16.0); White Blood Count 7.3 X10*3/uL (4.8-10.8)
[2024-11-15 15:13] LABS: Folate 17.3 ng/mL (> or = 4.0); Vitamin B12 640 pg/mL (200-900)
[2024-11-15 16:25] LABS: Alanine Aminotransferase 15 U/L (0-31); Albumin Level 4.4 g/dL (3.5-5.0); Alkaline Phosphatase 84 U/L (39-117); Anion Gap 11 (12-20); Aspartate Amino Transferase 21 U/L (5-31); Bilirubin Total 0.3 mg/dL (0.0-1.0); Blood Urea Nitrogen 24 mg/dL (9-16); Calcium 9.7 mg/dL (8.4-10.2); Carbon Dioxide 29 mmol/L (22-29); Chloride 102 mmol/L (96-108); Estimated Glomerular Filt Rate > 60; Glucose Random 72 mg/dL (60-115); Iron 59 mcg/dL (30-160); Percent Iron Saturation 17 % (15-50); Potassium 4.2 mmol/L (3.3-5.1); Sodium 138 mmol/L (135-145); Total Iron Binding Capacity 345 mcg/dL (228-428); Total Protein 8.1 g/dL (6.5-8.0); Unsaturated Iron Binding 286 ug/dL
[2024-11-15 16:35] LABS: TSH reflex Free T4 2.27 uIU/mL (0.32-4.0)
== END 2024-11-15 10:17 | disposition home or self-care (01) ==
LOC: HO.CHCLDS 10:16
PROVIDERS: Visit Provider Internal Medicine
DX: R53.83 Other fatigue (principal)
CPT/HCPCS: 36415; 80053; 82306; 82607; 82746; 83540; 84443; 85025

== ENCOUNTER 2025-02-07 06:14 | Outpatient (REF) | payer OTHER, SELFPAY ==
--- NOTE | ~2025-02-07 | XR_ITS ---
EXAMINATION: XR KNEE, LEFT CLINICAL INFORMATION: M25.569 - Pain in unspecified knee COMPARISON: October 13, 2024. TECHNIQUE: Three views of the left knee. FINDINGS: There is a metallic prosthesis with a femoral and tibial component well-seated in the osseous structures. No acute cortical disruption or gross malalignment. No gross loosening. There is joint space narrowing and sclerosis at the articular surface with marginal osteophyte formation involving the medial compartment of the right knee. No lytic or blastic lesions. XR/XR knee LT 3V IMPRESSION: Status post total left knee arthroplasty without gross malalignment or acute fracture. Severe osteoarthrosis, medial compartment right knee. Electronically signed by: Patrick Reno MD 02/08/2025 09:53 AM EDT
--- OUTSIDE RECORDS SUMMARY | 2025-02-08 06:17 | XMS_ITS | Encounter Summary ---
Author Organization [employer] Address 75 [facility] 7t [place] [address] Care Team Providers Care Order Booker Name Role Phone Robert Mccollum MD Primary Care Prov ider Encounter Details Date Type Department Care Team (Late Contact Info) Description 04/28/2023 Orders Only [facility] CHC MED & PEDS 505 [place] [address] David Morataya MD 505 [place] [address] Psoriasis (Primary Dx) Social History Tobacco Use [...] Info) Description 02/16/2025 10:45 AM EDT Telemedicine [facility] CHC MED & PEDS 505 [place] [address] Robert Mccollum MD 505 [place] [address] documented as of this encounter Visit Diagnoses Diagnosis Psoriasis- Primary Other psoriasis documented in this encounter Additional Health Concerns Assessment Noted Time PHQ-9 Depression Total Score: 0 09/29/20 22 9:25 AM EST documented as of this encounter Care Teams Order Booker Relationship Specialty Start Date End Date Robert Mccollum MD 505 [place] [address] PCP - General Internal Medicine 02/24/20 documented as of this encounter
--- OUTSIDE RECORDS SUMMARY | 2025-02-08 06:17 | XMS_ITS | Clinical Summary ---
Author Organization [facility] Address [address] [place] [address] Care Team Providers Care Pneumatic Deicer Inspector Name Role Phone Robert Luz MD Primary Care Provider [phone] Allergies No known active allergies Social History [...] age to complete this topic Care Teams Pneumatic Deicer Inspector Relationship Specialty Start Date End Date Robert Luz MD 505 [place] [address] PCP - General Internal Medicine 05/02/22
--- OUTSIDE RECORDS SUMMARY | 2025-02-08 06:17 | XMS_ITS | Clinical Summary ---
Author Organization 175 [facility] Address 175 [place] [address] Phone Care Team Providers Care Tire Center Supervisor Name Role Phone Robert Mccollum Primary Care [...] Team Description 01/11/2025 Telephone Bariatric Surgery - [address] [phone] Regine Castanon MD Med Refill (Zepbound) 12/15/2024 Telephone Bariatric Surgery [address] [address] Regine Castanon MD Med Refill (Zepbound) 11/22/2024 9:15 AM EST Office Visit Bariatric Surgery [address] [address] Regine Castanon MD Class 2 obesity due to excess calories with body mass index (BMI) of 35.0 to 35.9 in adult, unspecified whether serious comorbidity present (Primary Dx) from Last 3 Months Immunizations Name Administration Dates Next Due Moderna SARS-CoV-2 COVID-19, mRNA, LNP-S, preservative free 03/27/2021,02/27/2021 Surgical History Surgery Date Site/Laterality Comments OTHER SURGICAL HISTORY 2000 PROCEDURE: MT LIG/TRNSXJ FLP TUBE ABDL/VAG APPR UNI/BI; COMMENT: MT SECTION 2000 PROCEDURE: MT DELIVERY ONLY; COMMENT: MT CHOLECYSTECTOMY 2004 PROCEDURE: MT LAPAROSCOPY SURG CHOLECYSTECTOMY; COMMENT: MT OTHER SURGICAL HISTORY 06/30/2022 PROCEDURE: MT LAPS TOTAL HYSTERECT 250 GM/< W/RMVL TUBE/OVARY; [...] AM EDT Office Visit Bariatric Surgery - [place] [address] [facility] [address] [place] [address] Regine Castanon MD 175 [facility] [address] [place] [address] Health Maintenance Due Date Last Done Comments [...] * Annual BMP Blood Test (06/29/2024) Pathologist [facility] Annual BMP Blood Test Abstracted [facility] Provider HEALTH MAINTENANCE Final Result * Hepatitis C Screening (06/29/2024) Pathologist [facility] Hepatitis C Screening Abstracted [facility] Provider HEALTH MAINTENANCE Final Result * Lipid panel (06/29/2024) [facility] LDL/HDL Ratio 0 Comment:No Interpretation Triglycerides 0 mg/dL Comment:No Interpretation Cholesterol 0 mg/dL Comment:No Interpretation HDL 0 mg/dL Comment:No Interpretation LDL Cholesterol 0 mg/dL Comment:No Interpretation Blood Venous blood specimen / Unknown Result [facility] LAB BLOOD ORDERABLES Pina l Result * Depression Screening (02/04/2024) Pathologist [facility] Depression Screening Abstracted Result [facility] HEALTH MAINTENANCE Final Result * Pap Smear (04/24/2022) Pathologist [facility] Pap smear No Interpretation , Abstracted Result [facility] Final Result * HIV Screening (06/10/2021) [facility] HIV Screening Abstracted Result [facility] Provider HEALTH MAINTENANCE Final Result * DX [...] the patient's daughter, who acted as a arabic translator for the patient, at 6:22 PM on [...] with the patient's daughter, who actedas a arabic translator for the patient, at 6:22 PM on [...] Most Recently Relevant to Health Maintenance [place] [address] [address] [place] [address] [employer] [place] [address] Care Teams Tire Center Supervisor Relationship Specialty Start Date End Date Robert Mccollum [address] [place], [place] PCP - General Internal Medicine 05/02/22
--- OUTSIDE RECORDS SUMMARY | 2025-02-08 06:17 | XMS_ITS | Encounter Summary ---
Author Organization [employer] Address 75 [facility] 7t [place] [address] Care Team Providers Care Cyber Incident Responder Name Role Phone Robert Mccollum MD Primary Care Prov ider Encounter Details Date Type Department Care Team ([facility] st Contact Info) Description 11/12/2022 Telephone C [facility] MED [facility]S 505 [place], [place] [phone] Robert Mccollum MD 505 [place] [address] Social History Tobacco Use Types Packs/Day Years [...] AM EST Tc from pt calling to [facility] requesting a folic acid medication that was talked on yesterday appt with Dr. Luz. Respiratory Therapy Technician see on assessment/plan ( - folic acid 1 mg in sodium chloride 0.9 %50 mL IVPB; Infuse 1 mg into a venous catheter 1 (one) time for 1 dose.) Respiratory Therapy Technician is confused also ptplease contact pt to clarify. Respiratory Therapy Technician check but is no script on [facility] . PCP DR. Luz documented in this encounter Plan of Treatment Upcoming Encounters Date Type Department Care Team (Late st Contact Info) Description 02/16/2025 10:45 AM EDT Telemedicine [facility] MED & PEDS [address] [place] [address] Robert Mccollum MD [address] [place] [address] documented as of this encounter Visit Diagnoses Diagnosis Preventative health care- Primary Routine general medical examination at a health care facility documented in this encounter Additional Health Concerns Assessment Noted Time PHQ-9 Depression Total Score: 0 09/29/20 22 9:25 AM EST documented as of this encounter Care Teams Cyber Incident Responder Relationship Specialty Start Date End Date Robert Mcocllum MD [address] [place] [address] PCP - General Internal Medicine 02/24/20 documented as of this encounter
--- OUTSIDE RECORDS SUMMARY | 2025-02-08 06:17 | XMS_ITS | Clinical Summary ---
Author Organization [facility] Address [address] [address] Phone Care Team Providers Care Expediter Name Role Phone Robert Luz Primary Care Provider +1 [phone] Allergies No known active allergies Medications acetaminophen [...] Visit [facility] [address] [address] Althea Crabtree ARNP [address] [address] Health Maintenance Due Date Last Done Comments Breast Cancer Screening 1972 Hepatitis B Vaccine (1 of 3 - 19+ 3-dose series) 1991 Pneumococcal Vaccine: 50+ Ye ars (1 of 2 - PCV) 1991 Colorectal Cancer Screening: Annual FOBT 2021 Colorectal Cancer Screening: Colonoscopy 2021 Colorectal Cancer Screening: Sigmoidoscopy 2021 Influenza Vaccine Completed 06/29/2024, , 08/26/2017 Insurance Medicaid Medicaid Care Teams Expediter Relationship Specialty Start Date End Date Luz, Robert NPTeto: [phone] PCP - General Internal Medicine 01/15/23
--- OUTSIDE RECORDS SUMMARY | 2025-02-08 06:17 | XMS_ITS | Encounter Summary ---
Author Organization [employer] Address 75 [facility] 7t [place] [address] Care Team Providers Care Conveyor Worker Name Role Phone Robert Mccollum MD Primary Care Prov ider Encounter Details Date Type Department Care Team ([facility] Contact Info) Description 10/08/2022 Orders Only [facility] MEDICINE [address] [place] [address] David Morataya MD 505 [place], [place] [phone] Psoriasis Social History Tobacco Use Types Packs/Day [...] Upcoming Encounters Date Type Department Care Team ([facility] Contact Info) Description 02/16/2025 10:45 AM EDT Telemedicine [facility] CHC MED & PEDS [address] [place], [place] [phone] Robert Mccollum MD 505 [place] [address] documented as of this encounter Visit Diagnoses Diagnosis Psoriasis Other psoriasis documented in this encounter Additional Health Concerns Assessment Noted Time PHQ-9 Depression Total Score: 0 09/29/20 22 9:25 AM EST documented as of this encounter Care Teams Conveyor Worker Relationship Specialty Start Date End Date Robert Mccollum MD 505 [place] [address] PCP - General Internal Medicine 02/24/20 documented as of this encounter
--- OUTSIDE RECORDS SUMMARY | 2025-02-08 06:17 | XMS_ITS | Encounter Summary ---
Author Organization [employer] Address 75 [facility] 7t [place] [address] Care Team Providers Care Pediatric Clinical Dietician Name Role Phone Robert Mccollum MD Primary Care Prov ider Encounter Details Date Type Department Care Team (Late Contact Info) Description 11/05/2022 Abstract [facility] MED & PEDS 505 [place] [address] Robert Mccollum MD [address] [place] [address] Social History Tobacco Use Types Packs/Day Years [...] Upcoming Encounters Date Type Department [facility] Description 02/16/2025 10:45 AM EDT Telemedicine [facility] MED & PEDS 505 [place] [address] Robert Mccollum MD 505 [place] [address] documented as of this encounter Visit Diagnoses Not on filedocumented in this encounter Additional Health Concerns Assessment Noted Time PHQ-9 Depression Total Score: 0 09/29/20 22 9:25 AM EST documented as of this encounter Care Teams Pediatric Clinical Dietician Relationship Specialty Start Date End Date Robert Mccollum MD [address] [place] [address] PCP - General Internal Medicine 02/24/20 documented as of this encounter
--- OUTSIDE RECORDS SUMMARY | 2025-02-08 06:17 | XMS_ITS | Clinical Summary ---
Author Organization [employer] Address [address] [facility] 7t [place] [address] Care Team Providers Care Family Sociologist Name Role Phone Robert Mccollum MD Primary [...] medication. Unsure name of med, but per [employer] rec, spironolactone 100mg daily was rx by [...] Info) Description 02/16/2025 10:45 AM EDT Telemedicine [facility] MED & PEDS [address] [place] [address] Robert Mccollum MD [address] [place] [address] Health Maintenance Due Date Last Done Comments [...] Vitamin D 25-OH Total 36.0 >30 ng/mL [facility] Comment:Health Based Referen ce Values*< 20 ng/mL Qpceyheqt65-36 ng/mL Insufficient> 30 ng/mL Sufficient*Efe JORDAN. N [...] ORDERABL ES Final Result Performing Organization Address [facility] de Phone Number [facility] [address] [place] [phone] * Vitamin B12 (Cobalamin) and Folate Panel, Serum (11/15/2024 10:17 AM EST) Vitamin B12 640 200 - 900 pg/mL [facility] Comment:NORMAL 200-900 PG/ML INDETERMINATE 160-199 PG/ML DEFICIENT < 160 PG/ML Folate 17.3 > or = 4.0 ng/mL [facility] Comment:Reference Values:> o r = [...] ORDERABL ES Final Result Performing Organization Address [facility] de Phone Number [facility] [address] [place] [phone] * TSH W/Reflex to FT4 (11/15/2024 10:17 AM EST) TSH reflex Free T4 2.27 0.32 - 4.0 uIU/mL [facility] Blood Venous blood specimen / Unknown 11/15/2024 10:17 AM EST 11/15/2024 2:01 PM EST us Robert Alejandro MD LAB BLOOD ORDERABL ES Final Result [facility] [address] [place] [phone] [phone] * (ABNORMAL) CBC auto differential (11/15/2024 10:17 AM EST) White Blood Count 7.3 4.8 - 10.8 X10*3/uL [facility] Red Blood Count 4.08(L) 4.20 - 5.50 X10*6/uL [facility] Hemoglobin 11.2(L) 12.0 - 16.0 g/dl [facility] Hematocrit 35.0(L) 37.0 - 47.0 % [facility] Mean Corpuscular Volume 85.8 80.0 - 98.0 fL [facility] Mean Corpuscular Hemoglobin 27.5 27.0 - 33.0 pg [facility] Mean Corpuscular HGB Conc 32.0 31.0 - 35.0 g/dl [facility] Red Cell Distribution Width 13.6 11.0 - 16.0 % [facility] Platelet Count 342 160 - 400 X10*3/uL [facility] Mean Platelet Volume 11.0 9.4 - 12.3 fL [facility] Neutrophils Percent Auto 56.5 45 - 73 % [facility] Imm Gran Pct Auto 0.4 0.0 - 0.4 % [facility] Lymphocytes Percent Auto 25.0 20 - 40 % [facility] Monocytes Percent Auto 7.3 2 - 11 % [facility] Eosinophils Percent Auto 10.1(H) 0 - 4 % [facility] Basophils Percent Auto 0.7 0 - 2 % [facility] NRBC Pct Auto 0.0 0.0 - 0.2 /100WBC [facility] Neutrophils Absolute Auto 4.1 2.0 - 8.3 x10*3/uL [facility] Imm Gran Abs Auto 0.03 0.00 - 0.03 X10*3/uL [facility] Lymphocytes Absolute Auto 1.8 1.2 - 4.9 X10*3/uL [facility] Monocytes Absolute Auto 0.5 0.1 - 1.2 X10*3/uL [facility] Eosinophils Absolute Auto 0.7(H) 0.0 - 0.4 X10*3/uL [facility] Basophils Absolute Auto 0.1 0.0 - 0.2 X10*3/uL [facility] NRBC Abs Auto 0.000 0.0 - 0.012 X10*3/uL [facility] Blood Venous blood specimen / Unknown 11/15/2024 10:17 AM EST 11/15/2024 2:01 PM EST us Robert Alejandro MD LAB BLOOD ORDERABL ES Final Result [facility] [address] [place] [phone] * Iron And Total Iron Binding Capacity (11/15/2024 10:17 AM EST) Iron 59 30 - 160 mcg/dL [facility] Total Iron Binding Capacity 345 228 - 428 mcg/dL [facility] Percent Iron Saturation 17 15 - 50 % [facility] Unsaturated Iron Binding 286 ug/dL [facility] Blood Venous blood specimen / Unknown 11/15/2024 10:17 AM EST 11/15/2024 2:01 PM EST Robert Alejandro MD LAB BLOOD ORDERABL ES Final Result Performing Organization Address City/[facility]/ZIP Co de Phone Number [facility] [address] [place] [phone] * (ABNORMAL) Comprehensive Metabolic Panel (11/15/2024 10:17 AM EST) Pathologist [facility] Sodium 138 135 - 145 mmol/L [facility] Potassium 4.2 3.3 - 5.1 mmol/L [facility] Chloride 102 96 - 108 mmol/L [facility] Carbon Dioxide 29 22 - 29 mmol/L [facility] Anion Gap 11(L) 12 - 20 [facility] Urea Nitrogen (BUN) 24(H) 9 - 16 mg/dL [facility] Creatinine, Serum 0.82 0.5 - 1.4 mg/dL [facility] Estimated Glomerular Filt Rate >60 [facility] Comment:Chronic Kidney Disea se: Estimated GFR < 60 mL/min/1.46q8Exhaow Kidney Disease: Estimated GFR < 15 mL/min/1.73m2 Glucose 72 60 - 115 mg/dL [facility] Calcium 9.7 8.4 - 10.2 mg/dL [facility] Bilirubin, Total 0.3 0.0 - 1.0 mg/dL [facility] Aspartate Amino Transferase 21 5 - 31 U/L [facility] Alanine Aminotransferase 15 0 - 31 U/L [facility] Total Protein 8.1(H) 6.5 - 8.0 g/dL [facility] Albumin Level 4.4 3.5 - 5.0 g/dL [facility] Alkaline Phosphatase 84 39 - 117 U/L [facility] Blood Venous blood specimen / Unknown 11/15/2024 10:17 AM EST 11/15/2024 2:01 PM EST us Robert Alejandro MD LAB BLOOD ORDERABL ES Final Result [facility] [address] [place] [phone] * Hepatitis C Antibody with Reflex to HCV, RNA, Quantitative, Real-Time PCR (06/29/2024 11:30 AM EDT) Pathologist [facility] Hepatitis C Antibody Nonreactive Nonreactive [facility] Comment:Antibodies to HCV no t detected; does not exclude early acuteHCV infection. Blood Venous blood specimen / Unknown 06/29/2024 11:30 AM EDT 06/29/2024 1:46 PM EDT Robert Alejandro MD LAB BLOOD ORDERABL ES Final Result Performing Organization Address [facility] Co de Phone Number [facility] [address] [place] [phone] * (ABNORMAL) Lipid Panel, Standard (06/29/2024 11:30 AM EDT) Triglycerides 113 <150 mg/dL [facility] Comment:Desirable Triglyceri de: less than 150 mg/dLBorderline High Triglyceride 150-199 mg/dLHigh Triglyceride: 200-499 mg/dLVery High Triglyceride: greater than or equal to 5OO mg/dL Cholesterol 157 <200 mg/dL [facility] Comment:Desirable Cholestero l: less than 200 mg/dLBorderline High Cholesterol: 200-239 mg/dLHigh Cholesterol: greater than 239 mg/dL LDL Cholesterol Calculated 98 <100 mg/dL [facility] Comment:Desirable LDL: less than 100 mg/dLNear Optimal/Above Optimal LDL: 110- 129 mg/dLBorderline High LDL: 130-159 mg/dLHigh LDL: 160-189 mg/dLVery High LDL: greater than or equal to 190 mg/dL HDL Cholesterol 37(L) >40 mg/dL [facility] Comment:Desirable HDL: great er than 40 mg/dL Note: This HDL assay may give artificially low results in patients with liver disease. Blood Venous blood specimen / Unknown 06/29/2024 11:30 AM EDT 06/29/2024 1:46 PM EDT us Robert Alejandro MD LAB BLOOD ORDERABL ES Final Result Performing Organization Address [facility]/ZIP Co de Phone Number [facility] [address] [place] [phone] * BI Mammogram Screening Tomosynthesis Bilateral (02/09/2024 10:25 AM EDT) Anatomical Region Laterality Modality Breast Bilateral Mammography 02/09/2024 10:2 5 AM EDT Narrative 02/23/2024 1:14 PM EDT ? [facility] ? [address] ?[place] [address] ? Mammography Report ? Signed ? Patient: Chino Matos,Susan ?MR#: MM ?? [id number] ? : 1970 ?Acct:[id number] ? Age/Sex: 53 / F ?ADM Date: 02/09/24 ? Loc: HO.MAMMO ? Attending Dr: Robert Alejandro MD ? Ordering Physician: Robert Mccollum MD ?Res ?? ults: 2Benign Findings ? Date of Service: 02/09/24 ?Follow Up: 1 Year From Orig ?? inal Mammogram ? Procedure(s): MM tomosynthesis screening BI ?? Accession Number(s): [id number] ? cc: Robert Mccollum MD ? EXAMINATION: ?? MM SCREENING DIGITAL BREAST TOMOSYNTHESIS, BILATERAL ? CLINICAL INFORMATION: ? Screening. Asymptomatic. 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 circumscribed mass. ? COMPARISON: ?? Mammography: 10/03/2022, 12/01/2018, 11/02/2018, and 10/09/2018 ?? ([place]). ? TECHNIQUE: ?? Digital breast tomosynthesis is [...] MD ? Signed By: ?<Electronically signed by Davdi Hines MD in OV> ?02/23/24 1310 ? DD/ 1025 ? TD/TT: ? Manager Of Change: ? Procedure Note Donotuseinterpreter, Image - 02/23/20[facility] [address] [place] [address] Mammography Report Signed Patient: Joycelyn Kaur#: [id number] : 1970Acct:[id number] Age/Sex: 53 / FADM Date: 02/09/24 Loc: HO.MAMMO Attending Dr: Robert Alejandro MD Ordering Physician: Robert Mccollum ults: 2Benign Findings Date of Service: 02/09/24Follow Up: 1 Year From Orig inal Mammogram Procedure(s): MM tomosynthesis screening BI Accession Number(s): [id number] cc: Robert Mccollum MD EXAMINATION: MM SCREENING DIGITAL BREAST TOMOSYNTHESIS, BILATERAL CLINICAL INFORMATION: Screening. Asymptomatic. History of 2 separate benign biopsies right breast yielding fibroadenoma, and benign biopsy left sided oval circumscribed mass. COMPARISON: Mammography: 10/03/2022, 12/01/2018, 11/02/2018, and 10/09/2018 ([place]). TECHNIQUE: Digital breast tomosynthesis is performed in [...] in OV> 02/23/24 1310 DD/ 1025 TD/TT: Manager Of Change: [facility] Natty Alejandro MD IM BI PROCEDURES Final [...] ? For additional information please refer to http://education.[employer].CNS Response/faq/OPJ969 (This link is being provided for informational/ educational purposes only.) ? The performance of this assay has not been clinically validated in patients less than 2 years old. ?? 06/10/2021 11:4 5 AM EDT Robert Alejandro MD LAB BLOOD ORDERABL ES Final Result Performing Organization Address [facility] Phone Number [facility] Any[address] * HPV mRNA E6/E7 (09/18/2020 4:09 PM EST) HPV nRNA E6/E7 Not Detected Not Detected [facility] Comment: This test was performed using the APTIMA HPV Assay ([employer] This assay detects E6/E7 viral messenger RNA (mRNA) from 14 high-risk HPV types (16,18,31,33,35,39,45,51,52,56,58,59,66,68). ?? The analytical performance characteristics of this assay have been determined by [employer]. The modifications have not been cleared or approved by the FDA. This assay has been validated pursuant to the CLIA regulations and is used for clinical purposes. 09/18/2020 4:09 PM EST Floresita Vásquez CNM LAB BLOOD ORDERABLES Pina l Result Performing Organization Address [facility] Phone Number [facility] [address] * Hm Pap Smear (09/18/2020) Pathologist [facility] HM Pap smear PERFORMED Historical Provider HEALTH MAINTENANCE Final Result from Last 3 Months or Most Recently Relevant to Health Maintenance Insurance [email or web address] [place] [facility] PARTIAL (MEDICAID) Care Teams Family Sociologist Relationship Specialty Start Date End Date Robert Mccollum MD [address] [place] [phone] PCP - General Internal Medicine 02/24/20
--- OUTSIDE RECORDS SUMMARY | 2025-02-08 06:17 | XMS_ITS | Encounter Summary ---
Author Organization [employer] Address [address] [place] [address] 7 [place] [address] Care Team Providers Care Sailmaker Name Role Phone Robert Mccollum MD Primary Care Prov ider Encounter Details Date Type Department Care Team (Latest Contact Info) Description 03/27/2022 Abstract [facility] CONVERSIONS Dental, Provider, DDS Social History [...] Info) Description 02/16/2025 10:45 AM EDT Telemedicine [facility] MED & PEDS [address] [place] [address] Robert Mccollum MD [address] [place] [address] documented as of this encounter Visit Diagnoses Not on filedocumented in this encounter Care Teams Sailmaker Relationship Specialty Start Date End Date Robert Mccollum MD [address] [place] [address] PCP - General Internal Medicine 02/24/20 documented as of this encounter
--- OUTSIDE RECORDS SUMMARY | 2025-02-08 06:17 | XMS_ITS | Encounter Summary ---
Author Organization [employer] Address [address] [place] [address] [address] [place] [address] Care Team Providers Care Supervisor [employer] Name Role Phone Robert Mccollum MD Primary Care Prov ider Encounter Details Date Type Department Care Team (Late Contact Info) Description 06/10/2023 Orders Only [facility] MED & PEDS [address] [place] [address] Robert Mccollum MD [address] [place] [address] Social History Tobacco Use Types Packs/Day Years [...] Info) Description 02/16/2025 10:45 AM EDT Telemedicine [facility] MED & PEDS [address] [place] [address] Robert Mccollum MD [address] [place] [address] documented as of this encounter Visit Diagnoses Not on filedocumented in this encounter Additional Health Concerns Assessment Noted Time PHQ-9 Depression Total Score: 0 09/29/20 22 9:25 AM EST documented as of this encounter Care Teams Supervisor [employer] Relationship Specialty Start Date End Date Robert Mccollum MD [address] [place] [address] PCP - General Internal Medicine 02/24/20 documented as of this encounter
--- OUTSIDE RECORDS SUMMARY | 2025-02-08 06:17 | XMS_ITS | Encounter Summary ---
Author Organization [facility] Address [address] [place] [phone] Care Team Providers Care Substation Engineer Name Role Phone Robert Mccollum Primary Care Provide r Reason for Visit * Reason Onset Date Comments Med Refill 01/11/2025 Zepbound Encounter Details Date Type Department Care Team (Late Contact Info) Description 01/11/2025 Telephone Bariatric Surgery [facility] [address] [phone] Regine Castanon MD [address] [address] Med Refill (Zepbound) Social History Tobacco Use [...] 10:15 AM EDT Office Visit Bariatric Surgery [facility] [address] [phone] Regine Castanon MD [address] [place] [address] documented as of this encounter Visit Diagnoses Not on filedocumented in this encounter Care Teams Substation Engineer Relationship Specialty Start Date End Date Robert Mccollum [address] [place], [place] PCP - General Internal Medicine 05/02/22 documented as of this encounter
== END 2025-02-07 06:15 | disposition home or self-care (01) ==
LOC: HO.HOSX 06:14
PROVIDERS: Visit Provider Physician Assistant
DX: M25.562 Pain in left knee (principal); M17.11 Unilateral primary osteoarthritis, right knee; Z96.652 Presence of left artificial knee joint
CPT/HCPCS: 20610; 73562; 99212; J1010; J2003

== ENCOUNTER 2025-02-07 11:11 | Outpatient (AMB) | payer OTHER, SELFPAY ==
--- NOTE | 2025-02-07 11:21 | MHC.OFFVIS ---
Intake Visit Reasons: ov - Left TKA 07/27/24 NE Intake Note: Susan is a 54 year old female who presents today for a post op appointment s/p Left TKA 07/27/24 NE. Patient reports she continues to have pain. She has continues to have pain. Patient has completed PT. Allergies No Known Allergies [No Known Allergies*] Allergy (Verified 08/11/24 12:37) HPI HPI ov - Left TKA 07/27/24 NE: Details: Ms. Carlo Magana is a 54-year-old female who presents to the office today for routine follow-up status post left total knee arthroplasty performed on 07/27/[address] Goss. Patient reports that she is continuing to have pain and points to the anterolateral aspect of the knee. She reports that she has attended all physical therapy sessions but the pain is continuing in the front of the knee. [facility] Medical History Back pain Anemia GERD (gastroesophageal reflux disease) HTN (hypertension) History of high blood pressure Right upper quadrant abdominal pain Appendicitis Gastropathy Surgical History Hx of colonoscopy Hx of tubal ligation History of cholecystectomy History of section Family History Father No problems noted. Mother HTN (hypertension), benign Social History Household Members: Spouse and Children Housing: House Are you a primary care support representative to a significant other at home: No Do you presently have visiting nurse or other home services: No Alcohol intake: never Patient Tobacco Use Status: Never used Tobacco Current occupational status: employed Review of Systems Const All systems reviewed & are unremarkable except as noted in HPI and below Physical Exam Const General: cooperative, healthy appearing and no acute distress Resp Effort & Inspection: normal respiratory effort and able to speak in complete sentences Cardio Rate: regular rate Peripheral pulses: Peripheral pulses 2+ throughout GI Palpation (GI): Soft to palpation Skin Lesions: no lesions Rashes: no rashes Extrem Other: Left knee: Normal to inspection. No ecchymosis, erythema or joint effusion. Range of motion is 0-110 degrees. NVI. Prior surgical incision site is well approximated and completely healed. NVI. Right knee full range of motion with crepitus. NVI. Office Procedures AMB Joint Injection/Aspiration Joint Injection/Aspiration Primary Site: right knee Prep: site was prepped using aseptic technique, ethochloride spray was applied and injection warnings given Injected: 80 mg of, DepoMedrol, with 8 mL of (2% plain lidocaine) and in the joint Approach Used: anterolateral Procedure: The patient tolerated the procedure well, but had some pain with the injection and there was some relief with the local anesthesia Coding 85327 - Large joint Procedure code (CPT) selection complete Assessment & Plan Assessment & Plan (1) Status post total knee replacement, left: Code(s): Z96.652 - Presence of left artificial knee joint Category: Surgical (2) Osteoarthritis of right knee: Code(s): M17.11 - Unilateral primary osteoarthritis, right knee Category: Medical Plan Ms. Carlo Magana is a 54-year-old female who presents to the office today for routine follow-up status post left total knee arthroplasty performed on 07/27/[address] Goss. Patient reports that she is continuing to have pain and points to the anterolateral aspect of the knee. She reports that she has attended all physical therapy sessions but the pain is continuing in the front of the knee. Additionally while in the office today the patient requested a repeat cortisone injection in the right knee. The patient was offered a cortisone injection in the right knee with 80 mg of DepoMedrol. The patient was explained the risks, benefits, and alternatives to receiving this injection. After receiving consent for the injection, the patient had the procedure done while in the office today. The patient tolerated the procedure well with no complications. Follow-up will be in [address] Goss to evaluate continued ongoing pain status post left total knee arthroplasty, or sooner if needed. In the meantime the patient was encouraged to continue her physical therapy exercises that she has learned during her sessions. X-rays of the left knee which were obtained while in the office today and were reviewed by me, Mireille Lara PA-C, revealed intact left knee arthroplasty with no evidence of hardware loosening or periprosthetic fracture. Orders: Orders XR knee LT 3V Today M25.569 - Pain in unspecified knee Coding Level of Care Code Est Pt Level 3 (86854) Diagnoses Status post total knee replacement, left Z96.652 Osteoarthritis of right knee M17.11 CPT Codes Coding - 91199 Large joint: 69603 - Large joint ([id number])
--- OUTSIDE RECORDS SUMMARY | 2025-02-07 13:27 | XMS_ITS | Clinical Summary ---
Author Organization [facility] Address [address] [place] [address] Care Team Providers Care Combat Rifle Crewmember Name Role Phone Robert Luz MD Primary Care Provider [phone] Allergies No known active allergies Social History [...] age to complete this topic Care Teams Combat Rifle Crewmember Relationship Specialty Start Date End Date Robert Luz MD [address] [place] [address] PCP - General Internal Medicine 05/02/22
--- OUTSIDE RECORDS SUMMARY | 2025-02-07 13:27 | XMS_ITS | Clinical Summary ---
Author Organization [employer] Address [address] [facility] [address] [place] [address] Care Team Providers Care Belt Back Operator Name Role Phone Robert Mccollum MD [...] medication. Unsure name of med, but per [facility] rec, spironolactone 100mg daily was rx by [...] ?? In agreement with referral to PT Immunizations Name Administration Dates Next Due Influenza [...] 11/03/2024 4:01 PM EST Plan of Treatment Upcoming Encounters Date Type Department Care Team (Late st Contact Info) Description 02/16/2025 10:45 AM EDT Telemedicine [facility] [address] [place] [address] Robert Mccollum MD [address] [place] [address] Health Maintenance Due Date Last Done Comments CT Colonography 1972 Colonoscopy 1972 Colorectal Cancer Screening 1972 Dental X-Ray: Full Mouth 1972 FIT DNA/Cologuard 1972 FIT 1972 FOBT 1972 Sigmoidoscopy 1972 Alcohol/Substance Use Screening 1984 Family Planning (PISQ) 1987 Hepatitis B Vaccines (1 of 3 - 19+ 3-dose series) 1991 Pneumococcal Vaccine: 50+ Years (1 of 1 - PCV) 2022 Zoster Vaccines (1 of 2) 2022 Dental Prophylaxis 08/29/2023 02/25/2023 Dental Oral Exam 09/18/2023 03/17/2023 Dental X-Ray: Bitewings 03/18/2024 03/17/2023 COVID-19 Vaccine ( season) 2024 11/05/2021, 03/27/2021, 02/27/2021 SDOH Screening 02/14/2025 02/15/2024 Depression Screening 11/03/2025 11/03/2024, 11/03/19 Tobacco Screening 11/03/2025 11/03/2024 Mammogram 02/08/2026 02/09/2024, 10/03/2022 Lipid Panel 06/29/2029 06/29/2024, 0302/2024, 08/12/2022, Additional history exists DTaP/Tdap/Td Vaccines (2 [...] Procedure Name Priority Date/Time Associated Diagnosis Comments COMPREHENSIVE METABOLIC PANEL Routine 11/15/2024 10:17 AM EST Other fatigue TSH W/REFLEX TO FT4 Routine 11/15/2024 1 0:17 AM EST Other fatigue VITAMIN D,25-OH,TOTAL,IA Routine 11/15/2024 10:17 AM EST Other fatigue VITAMIN B12/FOLATE, SERUM PANEL Routine 11/15/2024 10:17 AM EST Other fatigue IRON AND TOTAL IRON BINDING CAPACITY Routine 11/15/2024 10:17 AM EST Other fatigue CBC WITH AUTO DIFFERENTIAL Routine 11/15/2024 10:17 AM EST Other fatigue HEPATITIS C AB W/REFL TO HCV RNA, [...] Recently Relevant to Health Maintenance Results * Vitamin D, 25-Hydroxy, Total, Immunoassay (11/15/2024 10:17 AM EST) Vitamin D 25-OH Total 36.0 >30 ng/mL [facility] Comment:Health Based Referen ce Values*< 20 ng/mL Eezkwxdyr42-37 ng/mL Insufficient> 30 ng/mL Sufficient*Efe JORDAN. N Engl J Med. 2007;357:266-280Care must be taken in interpreting Vitamin D results fromdifferent laboratories and methodologies. Published datademonstrated that results from patients undergoinghemodialysis may show a negative bias when tested withvarious automated 25-OH vitamin D assays when compared toLC-MS/MS.When testing samples from patients whose predominant form ofVitamin D is Vitamin D2, such as patients receiving VitaminD2 supplementation, results that are subtherapeutic shouldbe confirmed with another method such as LC-MS/MS. Blood Venous blood specimen / Unknown 11/15/2024 10:17 AM EST 11/15/2024 2:01 PM EST Robert Alejandro MD LAB BLOOD ORDERABL ES Final Result Performing Organization Address [facility] de Phone Number [facility] [address] [place] [phone] * Vitamin B12 (Cobalamin) and Folate Panel, Serum (11/15/2024 10:17 AM EST) Vitamin B12 640 200 - 900 pg/mL [facility] Comment:NORMAL 200-900 PG/ML INDETERMINATE 160-199 PG/ML DEFICIENT < 160 PG/ML Folate 17.3 > or = 4.0 ng/mL [facility] Comment:Reference Values:> o r = 4.0 ng/mL< 4.0 ng/mL suggests folate deficiency Methotrexate, aminopterin and folinic acid(leucovorin) are chemotherapeutic agents whose molecularstructures are similar to folate; therefore, the Architectfolate assay cannot be used for patients using these drugs. Blood Venous blood specimen / Unknown 11/15/2024 10:17 AM EST 11/15/2024 2:01 PM EST Robert Alejandro MD LAB BLOOD ORDERABL ES Final Result Performing Organization Address [facility] de Phone Number [facility] [address] [place] [phone] * TSH W/Reflex to FT4 (11/15/2024 10:17 AM EST) TSH reflex Free T4 2.27 0.32 - 4.0 uIU/mL [facility] Blood Venous blood specimen / Unknown 11/15/2024 10:17 AM EST 11/15/2024 2:01 PM EST us Robert Alejandro MD LAB BLOOD ORDERABL ES Final Result [facility] [address] [place] [address] [phone] * (ABNORMAL) CBC auto differential (11/15/2024 10:17 AM EST) White Blood Count 7.3 4.8 - 10.8 X10*3/uL [facility] Red Blood Count 4.08(L) 4.20 - 5.50 X10*6/uL [facility] Hemoglobin 11.2(L) 12.0 - 16.0 g/dl [facility] Hematocrit 35.0(L) 37.0 - 47.0 % [facility] Mean Corpuscular Volume 85.8 80.0 - 98.0 fL [facility] Mean Corpuscular Hemoglobin 27.5 27.0 - 33.0 pg [facility] Mean Corpuscular HGB Conc 32.0 31.0 - 35.0 g/dl [facility] Red Cell Distribution Width 13.6 11.0 - 16.0 % [facility] Platelet Count 342 160 - 400 X10*3/uL [facility] Mean Platelet Volume 11.0 9.4 - 12.3 fL [facility] Neutrophils Percent Auto 56.5 45 - 73 % [facility] Imm Gran Pct Auto 0.4 0.0 - 0.4 % [facility] Lymphocytes Percent Auto 25.0 20 - 40 % [facility] Monocytes Percent Auto 7.3 2 - 11 % [facility] Eosinophils Percent Auto 10.1(H) 0 - 4 % [facility] Basophils Percent Auto 0.7 0 - 2 % [facility] NRBC Pct Auto 0.0 0.0 - 0.2 /100WBC [facility] Neutrophils Absolute Auto 4.1 2.0 - 8.3 x10*3/uL [facility] Imm Gran Abs Auto 0.03 0.00 - 0.03 X10*3/uL [facility] Lymphocytes Absolute Auto 1.8 1.2 - 4.9 X10*3/uL [facility] Monocytes Absolute Auto 0.5 0.1 - 1.2 X10*3/uL [facility] Eosinophils Absolute Auto 0.7(H) 0.0 - 0.4 X10*3/uL [facility] Basophils Absolute Auto 0.1 0.0 - 0.2 X10*3/uL [facility] NRBC Abs Auto 0.000 0.0 - 0.012 X10*3/uL [facility] Blood Venous blood specimen / Unknown 11/15/2024 10:17 AM EST 11/15/2024 2:01 PM EST us Robert Alejandro MD LAB BLOOD ORDERABL ES Final Result [facility] [address] [place] [phone] * Iron And Total Iron Binding Capacity (11/15/2024 10:17 AM EST) Iron 59 30 - 160 mcg/dL [facility] Total Iron Binding Capacity 345 228 - 428 mcg/dL [facility] Percent Iron Saturation 17 15 - 50 % [facility] Unsaturated Iron Binding 286 ug/dL [facility] Blood Venous blood specimen / Unknown 11/15/2024 10:17 AM EST 11/15/2024 2:01 PM EST Robert Alejandro MD LAB BLOOD ORDERABL ES Final Result Performing Organization Address City/[facility]/ZIP Co de Phone Number [facility] [address] [place] [phone] * (ABNORMAL) Comprehensive Metabolic Panel (11/15/2024 10:17 AM EST) Pathologist [facility] Sodium 138 135 - 145 mmol/L [facility] Potassium 4.2 3.3 - 5.1 mmol/L [facility] Chloride 102 96 - 108 mmol/L [facility] Carbon Dioxide 29 22 - 29 mmol/L [facility] Anion Gap 11(L) 12 - 20 [facility] Urea Nitrogen (BUN) 24(H) 9 - 16 mg/dL [facility] Creatinine, Serum 0.82 0.5 - 1.4 mg/dL [facility] Estimated Glomerular Filt Rate >60 [facility] Comment:Chronic Kidney Disea se: Estimated GFR < 60 mL/min/1.86p5Ubbail Kidney Disease: Estimated GFR < 15 mL/min/1.73m2 Glucose 72 60 - 115 mg/dL [facility] Calcium 9.7 8.4 - 10.2 mg/dL [facility] Bilirubin, Total 0.3 0.0 - 1.0 mg/dL [facility] Aspartate Amino Transferase 21 5 - 31 U/L [facility] Alanine Aminotransferase 15 0 - 31 U/L [facility] Total Protein 8.1(H) 6.5 - 8.0 g/dL [facility] Albumin Level 4.4 3.5 - 5.0 g/dL [facility] Alkaline Phosphatase 84 39 - 117 U/L [facility] Blood Venous blood specimen / Unknown 11/15/2024 10:17 AM EST 11/15/2024 2:01 PM EST us Robert Alejandro MD LAB BLOOD ORDERABL ES Final Result [facility] [address] [place] [phone] * Hepatitis C Antibody with Reflex to HCV, RNA, Quantitative, Real-Time PCR (06/29/2024 11:30 AM EDT) Pathologist [facility] Hepatitis C Antibody Nonreactive Nonreactive [facility] Comment:Antibodies to HCV no t detected; does not exclude early acuteHCV infection. Blood Venous blood specimen / Unknown 06/29/2024 11:30 AM EDT 06/29/2024 1:46 PM EDT Robert Alejandro MD LAB BLOOD ORDERABL ES Final Result Performing Organization Address [facility] Co de Phone Number [facility] [address] [place] [phone] * (ABNORMAL) Lipid Panel, Standard (06/29/2024 11:30 AM EDT) Triglycerides 113 <150 mg/dL [facility] Comment:Desirable Triglyceri de: less than 150 mg/dLBorderline High Triglyceride 150-199 mg/dLHigh Triglyceride: 200-499 mg/dLVery High Triglyceride: greater than or equal to 5OO mg/dL Cholesterol 157 <200 mg/dL [facility] Comment:Desirable Cholestero l: less than 200 mg/dLBorderline High Cholesterol: 200-239 mg/dLHigh Cholesterol: greater than 239 mg/dL LDL Cholesterol Calculated 98 <100 mg/dL [facility] Comment:Desirable LDL: less than 100 mg/dLNear Optimal/Above Optimal LDL: 110- 129 mg/dLBorderline High LDL: 130-159 mg/dLHigh LDL: 160-189 mg/dLVery High LDL: greater than or equal to 190 mg/dL HDL Cholesterol 37(L) >40 mg/dL [facility] Comment:Desirable HDL: great er than 40 mg/dL Note: This HDL assay may give artificially low results in patients with liver disease. Blood Venous blood specimen / Unknown 06/29/2024 11:30 AM EDT 06/29/2024 1:46 PM EDT us Robert Alejandro MD LAB BLOOD ORDERABL ES Final Result Performing Organization Address [facility]/ZIP Co de Phone Number [facility] [address] [place] [phone] * BI Mammogram Screening Tomosynthesis Bilateral (02/09/2024 10:25 AM EDT) Anatomical Region Laterality Modality Breast Bilateral Mammography 02/09/2024 10:2 5 AM EDT Narrative 02/23/2024 1:14 PM EDT ? [facility] ? [address] ?[place] [address] ? Mammography Report ? Signed ? Patient: Chino Matos,Susan ?MR#: [id number] ?? [id number] ? : 1970 ?Acct:[id number] ? Age/Sex: 53 / F ?ADM Date: 02/09/24 ? Loc: HO.MAMMO ? Attending Dr: Robert Alejandro MD ? Ordering Physician: Robert Mccollum MD ?Res ?? ults: 2Benign Findings ? Date of Service: 02/09/24 ?Follow Up: 1 Year From Orig ?? inal Mammogram ? Procedure(s): MM tomosynthesis screening BI ?? Accession Number(s): [id number] ? cc: Robert Mccollum MD ? EXAMINATION: ?? MM SCREENING DIGITAL BREAST TOMOSYNTHESIS, BILATERAL ? CLINICAL INFORMATION: ? Screening. Asymptomatic. 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 circumscribed mass. ? COMPARISON: ?? Mammography: 10/03/2022, 12/01/2018, 11/02/2018, and 10/09/2018 ?? ([place]). ? TECHNIQUE: ?? Digital breast tomosynthesis is [...] 1310 ? DD/ 1025 ? TD/TT: ? Transport Specialist: ? Procedure Note Donotuseinterpreter, Image - [facility] [address] [place] [address] Mammography Report Signed Patient: Joycelyn Kaur#: [id number] : 1970Acct:[id number] Age/Sex: 53 / FADM Date: 02/09/24 Loc: HO.MAMMO Attending Dr: Robert Alejandro MD Ordering Physician: Robert Mccollum ults: 2Benign Findings Date of Service: 02/09/24Follow Up: 1 Year From Orig inal Mammogram Procedure(s): MM tomosynthesis screening BI Accession Number(s): [id number] cc: Robert Mccollum MD EXAMINATION: MM SCREENING DIGITAL BREAST TOMOSYNTHESIS, BILATERAL CLINICAL INFORMATION: Screening. Asymptomatic. History of 2 separate benign biopsies right breast yielding fibroadenoma, and benign biopsy left sided oval circumscribed mass. COMPARISON: Mammography: 10/03/2022, 12/01/2018, 11/02/2018, and 10/09/2018 ([place]). TECHNIQUE: Digital breast tomosynthesis is performed in [...] in OV> 02/23/24 1310 DD/ 1025 TD/TT: Transport Specialist: [facility] Natty Alejandro MD IM BI PROCEDURES Final Result * HIV 1/2 ANTIGEN/ANTIBODY,FOURTH GENERATION W/RFL (06/10/2021 11:45 AM EDT) HIV-1/2 ANTIGEN AND ANTIBODIES, 4TH GENERATION W/ REFLEX NON-REACT LINDA NON-REACT LINDA [facility] Comment: HIV-1 antigen and HIV-1/HIV-2 [...] ? For additional information please refer to http://education.Stampt.Mor.sl/faq/MGB770 (This link is being provided for informational/ educational purposes only.) ? The performance of this assay has not been clinically validated in patients less than 2 years old. ?? 06/10/2021 11:4 5 AM EDT Robert Alejandro MD LAB BLOOD ORDERABL ES Final Result Performing Organization Address [facility] Phone Number [facility] [address] * HPV mRNA E6/E7 (09/18/2020 4:09 PM EST) HPV nRNA E6/E7 Not Detected Not Detected [facility] Comment: This test was performed using the APTIMA HPV Assay ([employer] This assay detects E6/E7 viral messenger RNA (mRNA) from 14 high-risk HPV types (16,18,31,33,35,39,45,51,52,56,58,59,66,68). ?? The analytical performance characteristics of this assay have been determined by [employer]. The modifications have not been cleared or approved by the FDA. This assay has been validated pursuant to the CLIA regulations and is used for clinical purposes. 09/18/2020 4:09 PM EST Floresita Vásquez CNM LAB BLOOD ORDERABLES Pina l Result Performing Organization Address [facility] Phone Number [facility] [address] * Hm Pap Smear (09/18/2020) Pathologist [facility] HM Pap smear PERFORMED Historical Provider HEALTH MAINTENANCE Final Result from Last 3 Months or Most Recently Relevant to Health Maintenance Insurance [id number] - [facility] PARTIAL (MEDICAID) Care Teams Belt Back Operator Relationship Specialty Start Date End Date Robert Mccollum MD [address] [place] [phone] PCP - General Internal Medicine 02/24/20
--- OUTSIDE RECORDS SUMMARY | 2025-02-07 13:27 | XMS_ITS | Clinical Summary ---
Author Organization [address] [facility] Address [address] [place] [address] Phone Care Team Providers Care Health Education Director Name Role Phone Robert Mccollum Primary Care Provide r Allergies No known active allergies Medications losartan/hydroc hlorothiazide (HYZAAR ORAL) Take 100 mg by mouth daily. Active amLODIPine (NORVASC) 10 mg tablet Take 10 mg by mouth daily. Active cholecalciferol (VITAMIN D-3) 50 mcg (2,000 unit) tablet Take 1 tablet by mouth daily. Active ferrous fumarate 324 mg (106 mg iron) tablet Take 1 Tab by mouth 2 times daily (before meals). 9 Active tirzepatide, weight loss, (Zepbound) 7.5 mg/0.5 mL injection Inject 0.5 mL (7.5 mg total) under the skin every 7 (seven) days for 28 days. 2 mL 5 02/10/20 25 Active tirzepatide, weight loss, (Zepbound) 5 mg/0.5 mL injection Inject 0.5 mL (5 mg total) under the skin every 7 (seven) days for 28 days. 2 mL 5 01/12/20 25 Discontinued Active Problems Problem Noted Date Diagnosed Date Abnormal uterine bleeding 05/22/2022 Intramural, submucous, and subserous leiomyoma o f uterus 05/22/2022 Fibroadenoma of right breast in female 9 Breast calcifications on mammogram 10/14/2018 Overview (09/05/2024): Further testing needed Breast Bx 10/2018 was benign Encounters Date Type Department Care Team Description 01/11/2025 Telephone Bariatric Surgery - [address] [phone] Regine Castanon MD Med Refill (Zepbound) 12/15/2024 Telephone Bariatric Surgery [address] [phone] Regine Castanon MD Med Refill (Zepbound) 11/22/2024 9:15 AM EST Office Visit Bariatric Surgery [address] [phone] Regine Castanon MD Class 2 obesity due to excess calories with body mass index (BMI) of 35.0 to 35.9 in adult, unspecified whether serious comorbidity present (Primary Dx) from Last 3 Months Immunizations Name Administration Dates Next Due Moderna [...] at Not on file Legal Sex Female 2:13 PM EST Gender Identity Not on file Sexual Orientation Not on file Obstetrics History Last Filed Vital Signs Vital Sign Reading Time Taken Comments Blood Pressure 138/84 11/22/2024 9:13 AM EST Pulse 60 11/22/2024 9:13 AM EST Temperature 36.6 ??C (97.8 ??F) 11/22/2024 9:13 AM ES T Respiratory Rate - - Oxygen Saturation - - Inhaled Oxygen Concentration - - Weight 97.1 kg (214 lb) 11/22/2024 9:13 AM EST Height 165.1 cm (5' 5 ) 11/22/2024 9:13 AM EST Body Mass Index 35.61 11/22/2024 9:13 AM EST Plan of Treatment Upcoming Encounters Date Type Department Care Team (Late st Contact Info) Description 03/23/2025 10:15 AM EDT Office Visit Bariatric Surgery - [place] [address] [facility] [address] [place] [address] Regine Castanon MD [address] [facility] [address] [place] [address] Health Maintenance Due Date Last Done Comments Hepatitis B Vaccines (1 of 3 - 19+ 3-dose series) 1991 Pneumococcal Vaccine: 50+ Years (1 of 2 - PCV) 1991 Pneumococcal Vaccine: Pediatrics (0 to 5 Years) and At-Risk Patients (6 to 64 Years) (1 of 2 - PCV) 1991 Zoster Vaccines (1 of 2) 1991 Breast Cancer Screening 11/11/2020 11/11/19 19, 11/02/2018, 10/09/2018 Colorectal Cancer Screening: Colonoscopy 09/17/2022 Social Influencers of Health Screening 09/17/2022 COVID-19 Vaccine (2023-2 5 season) 2024 11/05/2021, 03/27/2021, 02/27/2021 Cervical Cancer Screening: P ap Smear 04/24/2025 04/24/2022, 02/02/2018, 02/02/2018 Depression Screening 11/03/2025 11/03/2024, 02/04/2024 Hypertension/CHF/CAD Annual BMP Blood Test 11/15/2025 11/15/2024, 06/29/2024 Cholesterol Screening (Lipid Panel) 06/29/2029 06/29/2024, 06/29/2024 DTaP,Tdap,and Td Vaccines (2 - Td or Tdap) 11/03/2034 11/03/2024 HIV Screening Completed 06/10/2021, 06/10/2021 Hepatitis C Screening Completed 06/29/2024 , 06/29/2024 Influenza Vaccine Completed 06/29/2024, 09/24/2021, 08/26/2017 HIB Vaccines Aged Out No longer [...] patient's age to complete this topic Meningococcal B Vaccine Aged Out No l onger eligible based on patient's age to complete this topic RSV Immunization Patients Under 20 months Aged Out No longer eligible b ased on patient's age to complete this topic Varicella Vaccines Aged Out No longer eligible based on patient's age to complete this topic Procedures Procedure Name Priority Date/Time Associated Diagnosis Comments HEPATITIS C SCREENING Routine 06/29/2024 ANNUAL BMP BLOOD TEST Routine 06/29/2024 LIPID PANEL Routine 06/29/2024 DEPRESSION SCREENING Routine 02/04/2024 PAP SMEAR Routine 04/24/2022 HIV SCREENING Routine 06/10/2021 DX MAMMO INCL CAD UNI Routine 11/11/2018 1:23 PM EST Other abnormal and inconclusive findings on diagnostic imaging of breast from Last 3 Months or Most Recently Relevant to Health Maintenance Results * Annual BMP Blood Test (06/29/2024) Pathologist [facility] Annual BMP Blood Test Abstracted [facility] Provider HEALTH MAINTENANCE Final Result * Hepatitis C Screening (06/29/2024) Pathologist [facility] Hepatitis C Screening Abstracted [facility] Provider HEALTH MAINTENANCE Final Result * Lipid panel (06/29/2024) [facility] LDL/HDL Ratio 0 Comment:No Interpretation Triglycerides 0 mg/dL Comment:No Interpretation Cholesterol 0 mg/dL Comment:No Interpretation HDL 0 mg/dL Comment:No Interpretation LDL Cholesterol 0 mg/dL Comment:No Interpretation Blood Venous blood specimen / Unknown Result [facility] LAB BLOOD ORDERABLES Pina l Result * Depression Screening (02/04/2024) Pathologist [facility] Depression Screening Abstracted Result [facility] HEALTH MAINTENANCE Final Result * Pap Smear (04/24/2022) Pathologist [facility] Pap smear No Interpretation , Abstracted Result [facility] Final Result * HIV Screening (06/10/2021) [facility] HIV Screening Abstracted Result [facility] Provider HEALTH MAINTENANCE Final Result * DX MAMMO INCL CAD UNI (11/11/2018 1:23 [...] the patient's daughter, who acted as a demand inspector for the patient, at 6:22 PM on [...] with the patient's daughter, who actedas a demand inspector for the patient, at 6:22 PM on [...] to follow when results become available. Amie Ethelray INDIRA IMG BI PROCEDURES Edited Result - Final from Last 3 Months or Most Recently Relevant to Health Maintenance [place] [place] [address] [employer] PLAN Care Teams Health Education Director Relationship Specialty Start Date End Date Robert Mccollum [address] [place], [place] PCP - General Internal Medicine 05/02/22
--- OUTSIDE RECORDS SUMMARY | 2025-02-07 13:27 | XMS_ITS | Encounter Summary ---
Author Organization [employer] Address [address] [place] [address] [address] [place] [address] Care Team Providers Care Claims Associate Name Role Phone Robert Mccollum MD Primary Care Prov ider Encounter Details Date Type Department Care Team (Latest Contact Info) Description 03/27/2022 Abstract [facility] CONVERSIONS Dental, Provider, DDS Social History Tobacco [...] as of this encounter Plan of Treatment Upcoming Encounters Date Type Department Care Team (Late st Contact Info) Description 02/16/2025 10:45 AM EDT Telemedicine [facility] [address] [place] [address] Robert Mccollum MD [address] [place] [address] documented as of this encounter Visit Diagnoses Not on filedocumented in this encounter Care Teams Claims Associate Relationship Specialty Start Date End Date Robert Mccollum MD [address] [place] [phone] PCP - General Internal Medicine 02/24/20 documented as of this encounter
--- OUTSIDE RECORDS SUMMARY | 2025-02-07 13:27 | XMS_ITS | Encounter Summary ---
Author Organization [facility] Address [id number] [place] [phone] Care Team Providers Care Entry Specialist Name Role Phone Robert Mccollum Primary Care Provide r Reason for Visit * Reason Onset Date Comments Med Refill 01/11/2025 Zepbound Encounter Details Date Type Department Care Team (Late Contact Info) Description 01/11/[address] [facility] [address] [phone] Regine Castanon MD [address] [address] Med Refill (Zepbound) Social History Tobacco Use Types Packs/Day Years Used Date Smoking Tobacco: Never Smokeless Tobacco: Never Alcohol Use Standard Drinks/Week Comments No 0 (1 standard drink = 0.6 oz pur e alcohol) Comments Unknown Sex and Gender Information Value Date Recorded Sex Assigned at Not on file Legal Sex Female 2:13 PM EST Gender Identity Not on file Sexual Orientation Not on file documented as of this encounter Progress Notes * [facility] - 01/11/2025 10:33 AM EDT Patient did well on Zepbound 5 mgs and would like a refill with titration. If appropriate, please send script for Zepbound 7.5 mgs to their pharmacy. The patient does have a follow up in 03/23/2025 documented in this encounter Plan of Treatment Upcoming Encounters Date Type Department Care Team (Late Contact Info) Description 03/23/2025 10:15 AM EDT Office Visit Bariatric Surgery [facility] [address] [phone] Regine Castanon MD [address] [place] [address] documented as of this encounter Visit Diagnoses Not on filedocumented in this encounter Care Teams Entry Specialist Relationship Specialty Start Date End Date Robert Mccollum [address] [place], [place] PCP - General Internal Medicine 05/02/22 documented as of this encounter
--- OUTSIDE RECORDS SUMMARY | 2025-02-07 13:27 | XMS_ITS | Encounter Summary ---
Author Organization [employer] Address 75 [facility] 7t [place] [address] Care Team Providers Care Mechanical Planner Name Role Phone Robert Mccollum MD Primary Care Prov ider Encounter Details Date Type Department Care Team ([facility] Contact Info) Description 10/08/2022 Orders Only [facility] MEDICINE 230 [place] [address] David Morataya MD 505 [place], [place] [phone] Psoriasis Social History Tobacco Use Types Packs/Day [...] Upcoming Encounters Date Type Department Care Team ([facility] Contact Info) Description 02/16/2025 10:45 AM EDT Telemedicine [facility] CHC MED & PEDS 505 [place], [place] [phone] Robert Mccollum MD 505 [place] [address] documented as of this encounter Visit Diagnoses Diagnosis Psoriasis Other psoriasis documented in this encounter Additional Health Concerns Assessment Noted Time PHQ-9 Depression Total Score: 0 09/29/20 22 9:25 AM EST documented as of this encounter Care Teams Mechanical Planner Relationship Specialty Start Date End Date Robert Mccollum MD 505 [place] [address] PCP - General Internal Medicine 02/24/20 documented as of this encounter
--- OUTSIDE RECORDS SUMMARY | 2025-02-07 13:27 | XMS_ITS | Clinical Summary ---
Author Organization [facility] Address [address] [address] Phone Care Team Providers Care Overhead Irrigator Name Role Phone Robert Luz Primary Care Provider +1 [phone] Allergies No known active allergies Medications acetaminophen [...] 06/22/2018 06/08/2023 Seasonal allergy 06/22/2018 06/08/2023 Immunizations Immunization Administration Dates Next Due Influenza, Quadrivalent, Preservative [...] Visit [facility] [address] [address] Althea Crabtree ARNP [address] [phone] Health Maintenance Due Date Last Done Comments Breast Cancer Screening 1972 Hepatitis B Vaccine (1 of 3 - 19+ 3-dose series) 1991 Pneumococcal Vaccine: 50+ Ye ars (1 of 2 - PCV) 1991 Colorectal Cancer Screening: Annual FOBT 2021 Colorectal Cancer Screening: Colonoscopy 2021 Colorectal Cancer Screening: Sigmoidoscopy 2021 Influenza Vaccine Completed 06/29/2024, , 08/26/2017 Insurance Medicaid Medicaid Care Teams Overhead Irrigator Relationship Specialty Start Date End Date Luz, Robert NPTeto: [phone] PCP - General Internal Medicine 01/15/23
--- OUTSIDE RECORDS SUMMARY | 2025-02-07 13:27 | XMS_ITS | Encounter Summary ---
Author Organization [employer] Address [address] [place] [address] [address] [place] [address] Care Team Providers Care Transistor Tester Name Role Phone Robert Mccollum MD Primary Care Prov ider Encounter Details Date Type Department Care Team (Late Contact Info) Description 06/10/2023 Orders Only [facility] MED & PEDS 505 [place] [address] Robert Mccollum MD 505 [place] [address] Social History Tobacco Use Types Packs/Day Years [...] Department Care Team (Late Contact Info) Description 02/16/2025 10:45 AM EDT Telemedicine [facility] MED & PEDS 505 [place] [address] Robert Mccollum MD 505 [place] [address] documented as of this encounter Visit Diagnoses Not on filedocumented in this encounter Additional Health Concerns Assessment Noted Time PHQ-9 Depression Total Score: 0 09/29/20 22 9:25 AM EST documented as of this encounter Care Teams Transistor Tester Relationship Specialty Start Date End Date Robert Mccollum MD 505 [place] [address] PCP - General Internal Medicine 02/24/20 documented as of this encounter
--- OUTSIDE RECORDS SUMMARY | 2025-02-07 13:27 | XMS_ITS | Encounter Summary ---
Author Organization [email or web address] Address 75 [facility] 7t [place] [address] Care Team Providers Care Telecommunications Field Technician Name Role Phone Robert Mccollum MD Primary Care Prov ider Encounter Details Date Type Department Care Team ([facility] st Contact Info) Description 11/12/2022 Telephone C [facility] MED [facility] PEDS [address] [place], [place] [phone] Robert Mccollum MD 505 [place] [address] Social History Tobacco Use Types Packs/Day Years [...] AM EST Tc from pt calling to [facility] requesting a folic acid medication that was talked on yesterday appt with Dr. Luz. Charge Attendant see on assessment/plan ( - folic acid 1 mg in sodium chloride 0.9 %50 mL IVPB; Infuse 1 mg into a venous catheter 1 (one) time for 1 dose.) Charge Attendant is confused also ptplease contact pt to clarify. Charge Attendant check but is no script on [facility] . PCP DR. Luz documented in this encounter Plan of Treatment Upcoming Encounters Date Type Department Care Team (Late st Contact Info) Description 02/16/2025 10:45 AM EDT Telemedicine [facility] MED & PEDS 505 [place] [address] Robert Mccollum MD 505 [place] [address] documented as of this encounter Visit Diagnoses Diagnosis Preventative health care- Primary Routine general medical examination at a health care facility documented in this encounter Additional Health Concerns Assessment Noted Time PHQ-9 Depression Total Score: 0 09/29/20 22 9:25 AM EST documented as of this encounter Care Teams Telecommunications Field Technician Relationship Specialty Start Date End Date Robert Mccollum MD 505 [place] [address] PCP - General Internal Medicine 02/24/20 documented as of this encounter
--- OUTSIDE RECORDS SUMMARY | 2025-02-07 13:27 | XMS_ITS | Encounter Summary ---
Author Organization [employer] Address 75 [facility] 7t [place] [address] Care Team Providers Care General Accountant Name Role Phone Robert Mccollum MD Primary Care Prov ider Encounter Details Date Type Department Care Team (Late Contact Info) Description 11/05/2022 Abstract [facility] MED & PEDS 505 [place] [address] Robert Mccollum MD 505 [place] [address] Social History Tobacco Use Types Packs/Day Years [...] Upcoming Encounters Date Type Department Care Team ([facility] Contact Info) Description 02/16/2025 10:45 AM EDT Telemedicine [facility] MED & PEDS [address] [place] [address] Robert Mccollum MD 505 [place] [address] documented as of this encounter Visit Diagnoses Not on filedocumented in this encounter Additional Health Concerns Assessment Noted Time PHQ-9 Depression Total Score: 0 09/29/20 22 9:25 AM EST documented as of this encounter Care Teams General Accountant Relationship Specialty Start Date End Date Robert Mccollum MD 505 [place] [address] PCP - General Internal Medicine 02/24/20 documented as of this encounter
--- OUTSIDE RECORDS SUMMARY | 2025-02-07 13:27 | XMS_ITS | Encounter Summary ---
Author Organization [employer] Address 75 [facility] 7t [place] [address] Care Team Providers Care Ui Application Developer Name Role Phone Robert Mccollum MD Primary Care Prov ider Encounter Details Date Type Department Care Team (Late Contact Info) Description 04/28/2023 Orders Only [facility] CHC MED & PEDS 505 [place] [address] David Morataya MD 505 [place] [address] Psoriasis (Primary Dx) Social History Tobacco Use [...] Info) Description 02/16/2025 10:45 AM EDT Telemedicine [facility] CHC MED & PEDS 505 [place] [address] Robert Mccollum MD 505 [place] [address] documented as of this encounter Visit Diagnoses Diagnosis Psoriasis- Primary Other psoriasis documented in this encounter Additional Health Concerns Assessment Noted Time PHQ-9 Depression Total Score: 0 09/29/20 22 9:25 AM EST documented as of this encounter Care Teams Ui Application Developer Relationship Specialty Start Date End Date Robert Mccollum MD 505 [place] [address] PCP - General Internal Medicine 02/24/20 documented as of this encounter
== END 2025-02-07 11:46 | disposition home or self-care (01) ==
PROVIDERS: PCP Internal Medicine; Visit Provider Physician Assistant
DX: M17.11 Unilateral primary osteoarthritis, right knee (principal); Z96.652 Presence of left artificial knee joint
CPT/HCPCS: 20610; 99213

== ENCOUNTER → 2025-02-07 11:15 | Outpatient (BNV) | payer OTHER, SELFPAY | PROVIDERS: Visit Provider Radiology Diagnostic Radiology | DX: M25.562 Pain in left knee (principal); Z96.652 Presence of left artificial knee joint | CPT/HCPCS: 73562 ==

== ENCOUNTER 2025-02-15 09:47 | Outpatient (REF) | payer OTHER, SELFPAY ==
--- OUTSIDE RECORDS SUMMARY | 2025-02-15 10:39 | XMS_ITS | Encounter Summary ---
Author Organization [facility] Address [address] [place] [phone] Care Team Providers Care Head Cager Name Role Phone Robert Mccollum Primary Care Provide r Reason for Visit * Reason Onset Date Comments Med Refill 02/09/2025 Zepbound Encounter Details Date Type Department Care Team (Late Contact Info) Description 02/09/2025 Telephone Bariatric Surgery [facility] [address] [phone] Regine Castanon MD [address] [address] Med Refill (Zepbound) Social History Tobacco Use [...] encounter Progress Notes * [facility] - 02/09/2025 8:54 AM EDT Patient did well on Zepbound 7.5 mgs and would like a refill with titration. If appropriate, please send script for Zepbound 10 mgs to their pharmacy. The patient does have a follow up in 03/23/2025 documented in this encounter Plan of Treatment Upcoming Encounters Date Type Department Care Team (Late Contact Info) Description 03/23/2025 10:15 AM EDT Office Visit Bariatric Surgery [facility] [address] [phone] Regine Castanon MD [address] [place] [address] documented as of this encounter Visit Diagnoses Not on filedocumented in this encounter Care Teams Head Cager Relationship Specialty Start Date End Date Robert Mccollum [address] [place], [place] PCP - General Internal Medicine 05/02/22 documented as of this encounter
--- OUTSIDE RECORDS SUMMARY | 2025-02-15 10:39 | XMS_ITS | Clinical Summary ---
Author Organization [facility] Address [address] [place] [address] Care Team Providers Care Travel Rn Name Role Phone Robert Luz MD Primary Care Provider [phone] Allergies No known active allergies Social History [...] age to complete this topic Care Teams Travel Rn Relationship Specialty Start Date End Date Robert Luz MD [address] [place] [phone] PCP - General Internal Medicine 05/02/22
--- OUTSIDE RECORDS SUMMARY | 2025-02-15 10:40 | XMS_ITS | Clinical Summary ---
Author Organization [facility] Address [address] [facility] 7t [place] [address] Care Team Providers Care City Attorney Name Role Phone Robert Mccollum MD Primary [...] medication. Unsure name of med, but per [employer] rec, spironolactone 100mg daily was rx by [...] In agreement with referral to PT Encounters Date Type Department Care Team Description 02/13/2025 Population Health Risk Score [facility] () Department [address] [place] [phone] Provider, Population Health Generic from Last 3 Months Immunizations Name Administration [...] Description 02/16/2025 10:45 AM EDT Telemedicine [facility] MED & PEDS [address] [place] [address] Robert Mccollum MD [address] [place] [address] Health Maintenance Due Date Last Done Comments [...] X-Ray: [facility] 03/18/2024 03/17/2023 COVID-19 Vaccine ( - season) 2024 11/05/2021, 03/27/2021, 02/27/2021 SDOH Screening [...] AM EDT) Hepatitis C Antibody Nonreactive Nonreactive [facility] Comment:Antibodies to HCV no t detected; does not exclude early acuteHCV infection. Blood Venous blood specimen / Unknown 06/29/2024 11:30 AM EDT 06/29/2024 1:46 PM EDT us Robert Alejandro MD LAB BLOOD ORDERABL ES Final Result [facility] [address] [place] [address] [phone] * (ABNORMAL) Lipid Panel, Standard (06/29/2024 11:30 AM EDT) Triglycerides 113 <150 mg/dL [facility] Comment:Desirable Triglyceri de: less than 150 mg/dLBorderline High Triglyceride 150-199 mg/dLHigh Triglyceride: 200-499 mg/dLVery High Triglyceride: greater than or equal to 5OO mg/dL Cholesterol 157 <200 mg/dL [facility] Comment:Desirable Cholestero l: less than 200 mg/dLBorderline High Cholesterol: 200-239 mg/dLHigh Cholesterol: greater than 239 mg/dL LDL Cholesterol Calculated 98 <100 mg/dL [facility] Comment:Desirable LDL: less than 100 mg/dLNear Optimal/Above Optimal LDL: 110- 129 mg/dLBorderline High LDL: 130-159 mg/dLHigh LDL: 160-189 mg/dLVery High LDL: greater than or equal to 190 mg/dL HDL Cholesterol 37(L) >40 mg/dL [facility] Comment:Desirable HDL: great er than 40 mg/dL Note: This HDL assay may give artificially low results in patients with liver disease. Blood Venous blood specimen / Unknown 06/29/2024 11:30 AM EDT 06/29/2024 1:46 PM EDT Robert Alejandro MD LAB BLOOD ORDERABL ES Final Result [facility] [address] [place] [phone] * BI Mammogram Screening Tomosynthesis Bilateral (02/09/2024 10:25 AM EDT) Anatomical Region Laterality Modality Breast Bilateral Mammography 02/09/2024 10:2 5 AM EDT Narrative 02/23/2024 1:14 PM EDT ? [facility] ? [address] ?[place] [address] ? Mammography Report ? Signed ? Patient: Chino Matos,Susan ?MR#: MM ?? [id number] ? : 1970 ?Acct:[id number] ? Age/Sex: 53 / F ?ADM Date: 04/23/24 ? Loc: HO.MAMMO ? Attending Dr: Robert Alejandro MD ? Ordering Physician: Robert Mccollum MD ?Res ?? ults: 2Benign Findings ? Date of Service: 02/09/24 ?Follow Up: 1 Year From Orig ?? inal Mammogram ? Procedure(s): MM tomosynthesis screening BI ?? Accession Number(s): [id number] ? cc: Robert Mccollum MD ? EXAMINATION: ?? MM SCREENING DIGITAL BREAST TOMOSYNTHESIS, BILATERAL ? CLINICAL INFORMATION: ? Screening. Asymptomatic. 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 circumscribed mass. ? COMPARISON: ?? Mammography: 10/03/2022, 12/01/2018, 11/02/2018, and 10/09/2018 ?? ([place]). ? TECHNIQUE: ?? Digital breast tomosynthesis is [...] 1310 ? DD/ 1025 ? TD/TT: ? Residential Energy Auditor: ? Procedure Note Corine, Image - 02/23/2024 [facility] [address] [place] [address] [place] [address] Mammography Report Signed Patient: Susan Kaur#: [id number] : 1970Acct:[id number] Age/Sex: 53 / FADM Date: 02/09/24 Loc: HO.MAMMO Attending Dr: Robert Alejandro MD Ordering Physician: Robert Mccollum ults: 2Benign Findings Date of Service: 02/09/24Follow Up: 1 Year From Orig inal Mammogram Procedure(s): MM tomosynthesis screening BI Accession Number(s): [id number] cc: Robert Mccollum MD EXAMINATION: MM SCREENING DIGITAL BREAST TOMOSYNTHESIS, BILATERAL CLINICAL INFORMATION: Screening. Asymptomatic. History of 2 separate benign biopsies right breast yielding fibroadenoma, and benign biopsy left sided oval circumscribed mass. COMPARISON: Mammography: 10/03/2022, 12/01/2018, 11/02/2018, and 10/09/2018 ([place]). TECHNIQUE: Digital breast tomosynthesis is performed in [...] in OV> 02/23/24 1310 DD/ 1025 TD/TT: Residential Energy Auditor: Robert Alejandro MD IMG BI PROCEDURES Final Result * HIV 1/2 ANTIGEN/ANTIBODY,FOURTH GENERATION W/RFL (06/10/2021 11:45 AM EDT) HIV-1/2 ANTIGEN AND ANTIBODIES, 4TH GENERATION W/ REFLEX NON-REACT LINDA NON-REACT LINDA [facility] Comment: HIV-1 antigen and HIV-1/HIV-2 [...] ? For additional information please refer to http://education.[employer]Solar/faq/UBT154 (This link is being provided for informational/ educational purposes only.) ? The performance of this assay has not been clinically validated in patients less than 2 years old. ?? 06/10/2021 11:4 5 AM EDT Robert Alejandro MD LAB BLOOD ORDERABL ES Final Result [facility] [address] * HPV mRNA E6/E7 (09/18/2020 4:09 PM EST) HPV nRNA E6/E7 Not Detected Not Detected [facility] Comment: This test was performed using the APTIMA HPV Assay ([employer] This assay detects E6/E7 viral messenger RNA (mRNA) from 14 high-risk HPV types (16,18,31,33,35,39,45,51,52,56,58,59,66,68). ?? The analytical performance characteristics of this assay have been determined by [employer]. The modifications have not been cleared or approved by the FDA. This assay has been validated pursuant to the CLIA regulations and is used for clinical purposes. 09/18/2020 4:09 PM EST Floresita Vásquez CN LAB BLOOD ORDERABLES Pina yessenia Result [facility] [address] * Pap Smear (09/18/2020) Pap smear PERFORMED Historical Provider MD HEALTH MAINTENANCE Final Result from Last 3 Months or Most Recently Relevant to Health Maintenance Insurance [employer] - HSN PARTIAL (MEDICAID) Care Teams City Attorney Relationship Specialty Start Date End Date Robert Mccollum MD [address] [place] [phone] PCP - General Internal Medicine 02/24/20
--- OUTSIDE RECORDS SUMMARY | 2025-02-15 10:40 | XMS_ITS | Encounter Summary ---
Author Organization [employer] Address [address] [facility] 7t [place] [address] Care Team Providers Care Cargo Service Agent Name Role Phone Robert Mccollum MD Primary Care Prov ider Encounter Details Date Type Department Care Team (Late Contact Info) Description 11/05/2022 Abstract [facility] MED & PEDS [address] [place] [address] Robert Mccollum MD 505 [place] [address] Social History Tobacco Use Types Packs/Day Years [...] Upcoming Encounters Date Type Department Care Team ([facility] Contact Info) Description 02/16/2025 10:45 AM EDT Telemedicine [facility] MED & PEDS 505 [place] [address] Robert Mccollum MD 505 [place] [address] documented as of this encounter Visit Diagnoses Not on filedocumented in this encounter Additional Health Concerns Assessment Noted Time PHQ-9 Depression Total Score: 0 09/29/20 22 9:25 AM EST documented as of this encounter Care Teams Cargo Service Agent Relationship Specialty Start Date End Date Robert Mccollum MD 505 [place] [address] PCP - General Internal Medicine 02/24/20 documented as of this encounter
--- OUTSIDE RECORDS SUMMARY | 2025-02-15 10:40 | XMS_ITS | Encounter Summary ---
Author Organization [facility] Address [address] [place] [address] Care Team Providers Care Video Specialist Name Role Phone Robert Mccollum Primary Care Provide r Reason for Visit * Reason Onset Date Comments Med Refill 01/11/2025 Zepbound Encounter Details Date Type Department Care Team (Late Contact Info) Description 01/11/2025 Telephone Bariatric Surgery [facility] [address] [phone] Regine Castanon MD [address] [address] Med Refill (Zepbound) Social History Tobacco Use [...] 10:15 AM EDT Office Visit Bariatric Surgery [facility] [address] [phone] Regine Castanon MD [address] [place] [address] documented as of this encounter Visit Diagnoses Not on filedocumented in this encounter Care Teams Video Specialist Relationship Specialty Start Date End Date Robert Mccollum [address] [place], [place] PCP - General Internal Medicine 05/02/22 documented as of this encounter
--- OUTSIDE RECORDS SUMMARY | 2025-02-15 10:40 | XMS_ITS | Encounter Summary ---
Author Organization [employer] Address [address] [place] [address] 7 [place] [address] Care Team Providers Care Pest Control Service Representative Name Role Phone Robert Mccollum MD Primary Care Prov ider Encounter Details Date Type Department Care Team (Latest Contact Info) Description 03/27/2022 Abstract [facility] CONVERSIONS Dental, Provider, DDS Social History [...] Info) Description 02/16/2025 10:45 AM EDT Telemedicine [facility] MED & PEDS [address] [place] [address] Robert Mccollum MD 505 [place] [address] documented as of this encounter Visit Diagnoses Not on filedocumented in this encounter Care Teams Pest Control Service Representative Relationship Specialty Start Date End Date Robert Mccollum MD 505 [place] [address] PCP - General Internal Medicine 02/24/20 documented as of this encounter
--- OUTSIDE RECORDS SUMMARY | 2025-02-15 10:40 | XMS_ITS | Clinical Summary ---
Author Organization 175 [facility] Address 175 [place] [address] Phone Care Team Providers Care Technical Operations Specialist Name Role Phone Robert Mccollum Primary [...] meals). 9 Active tirzepatide, weight loss, (Zepbound) 10 mg/0.5 mL injection Inject 0.5 mL (10 mg total) under the skin every 7 (seven) days for 28 days. 2 mL 5 03/09/20 25 Active tirzepatide, weight loss, (Zepbound) 7.5 mg/0.5 mL injection Inject 0.5 mL (7.5 mg total) under the skin every 7 (seven) days for 28 days. 2 mL 5 02/10/20 25 Discontinued Active Problems Problem Noted Date Diagnosed Date Abnormal uterine bleeding 05/22/2022 Intramural, submucous, and subserous leiomyoma o f uterus 05/22/2022 Fibroadenoma of right breast in female 9 Breast calcifications on mammogram 10/14/2018 Overview (09/05/2024): Further testing needed Breast Bx 10/2018 was benign Encounters Date Type Department Care Team Description 02/09/2025 Telephone Bariatric Surgery - [address] [phone] Regine Castanon MD Med Refill (Zepbound) 01/11/2025 Telephone Bariatric Surgery [address] [address] Regine Castanon MD Med Refill (Zepbound) 12/15/2024 Telephone Bariatric Surgery [address] [address] Regine Castanon MD Med Refill (Zepbound) 11/22/2024 9:15 AM EST Office Visit Bariatric Surgery [address] [address] Regine Castanon MD Class 2 obesity due to excess calories with body mass index (BMI) of 35.0 to 35.9 in adult, unspecified whether serious comorbidity present (Primary Dx) from Last 3 Months Immunizations Name Administration Dates Next Due Moderna SARS-CoV-2 COVID-19, mRNA, LNP-S, preservative free 03/27/2021,02/27/2021 Surgical History Surgery Date Site/Laterality Comments OTHER SURGICAL HISTORY 2000 PROCEDURE: [place] LIG/TRNSXJ FLP TUBE ABDL/VAG APPR UNI/BI; COMMENT: [place] SECTION 2000 PROCEDURE: [place] DELIVERY ONLY; COMMENT: [place] CHOLECYSTECTOMY 2004 PROCEDURE: [place] LAPAROSCOPY SURG CHOLECYSTECTOMY; COMMENT: [place] OTHER SURGICAL HISTORY 06/30/2022 PROCEDURE: [place] LAPS TOTAL HYSTERECT 250 GM/< W/RMVL TUBE/OVARY; [...] AM EDT Office Visit Bariatric Surgery - [place] 175 [facility] [address] [place] [phone] Regine Castanon MD [address] [address] Health Maintenance Due Date Last Done Comments [...] Results * Annual BMP Blood Test (06/29/2024) [facility] Annual BMP Blood Test Abstracted [facility] Final Result * Hepatitis C Screening (06/29/2024) [facility] Hepatitis C Screening Abstracted Result [facility] Final Result * Lipid panel (06/29/2024) [facility] LDL/HDL Ratio 0 Comment:No Interpretation Triglycerides 0 mg/dL Comment:No Interpretation Cholesterol 0 mg/dL Comment:No Interpretation HDL 0 mg/dL Comment:No Interpretation LDL Cholesterol 0 mg/dL Comment:No Interpretation Blood Venous blood specimen / Unknown Result [facility] LAB BLOOD ORDERABLES Pina l Result * Depression Screening (02/04/2024) [facility] Depression Screening Abstracted Result [facility] Final Result * Pap Smear (04/24/2022) [facility] Pap smear No Interpretation , Abstracted Result [facility] Final Result * HIV Screening (06/10/2021) [facility] HIV Screening Abstracted Result [facility] Final Result * DX MAMMO INCL CAD [...] the patient's daughter, who acted as a planned giving officer for the patient, at 6:22 PM on [...] when results become available. Procedure Note Yvonne Chapin, - 11/23/2023 RESULTS ADDENDUM: BREAST, LEFT, 3 [...] with the patient's daughter, who actedas a planned giving officer for the patient, at 6:22 PM on [...] available. Amie Sanchez CNM IMG BI PROCEDURES Edited Result - Final from Last 3 Months or Most Recently Relevant to Health Maintenance Insurance [employer] Care Teams Technical Operations Specialist Relationship Specialty Start Date End Date Robert Mccollum [address] [place] [address] PCP - General Internal Medicine 05/02/22
--- OUTSIDE RECORDS SUMMARY | 2025-02-15 10:40 | XMS_ITS | Encounter Summary ---
Author Organization [employer] Address [address] [facility] 7t [place] [address] Care Team Providers Care Assault Amphibious Vehicle Crewman Name Role Phone Robert Mccollum MD Primary Care Prov ider Encounter Details Date Type Department Care Team ([facility] st Contact Info) Description 11/12/2022 Telephone C [facility] MED [facility]EDS 505 [place], [place] [phone] Robert Mccollum MD 505 [place] [address] Social History Tobacco Use Types Packs/Day Years [...] AM EST Tc from pt calling to [facility] requesting a folic acid medication that was talked on yesterday appt with Dr. Luz. Parks Recreation Director see on assessment/plan ( - folic acid 1 mg in sodium chloride 0.9 %50 mL IVPB; Infuse 1 mg into a venous catheter 1 (one) time for 1 dose.) Parks Recreation Director is confused also ptplease contact pt to clarify. Parks Recreation Director check but is no script on [facility] . PCP DR. Luz documented in this encounter Plan of Treatment Upcoming Encounters Date Type Department Care Team (Late st Contact Info) Description 02/16/2025 10:45 AM EDT Telemedicine [facility] MED & PEDS 505 [place] [address] Robert Mccollum MD [address] [place] [address] documented as of this encounter Visit Diagnoses Diagnosis Preventative health care- Primary Routine general medical examination at a health care facility documented in this encounter Additional Health Concerns Assessment Noted Time PHQ-9 Depression Total Score: 0 09/29/20 22 9:25 AM EST documented as of this encounter Care Teams Assault Amphibious Vehicle Crewman Relationship Specialty Start Date End Date Robert Mccollum MD 505 [place] [address] PCP - General Internal Medicine 02/24/20 documented as of this encounter
--- OUTSIDE RECORDS SUMMARY | 2025-02-15 10:40 | XMS_ITS | Encounter Summary ---
Author Organization [employer] Address [address] [facility] 7t [place] [address] Care Team Providers Care Cupola Patcher Helper Name Role Phone Robert Mccollum MD Primary Care Prov ider Encounter Details Date Type Department Care Team (Late Contact Info) Description 04/28/2023 Orders Only [facility] MED & PEDS [address] [place] [address] David Morataya MD 505 [place] [address] Psoriasis (Primary Dx) Social History Tobacco Use [...] Info) Description 02/16/2025 10:45 AM EDT Telemedicine [facility] MED & PEDS [address] [place] [address] Robert Mccollum MD [address] [place] [address] documented as of this encounter Visit Diagnoses Diagnosis Psoriasis- Primary Other psoriasis documented in this encounter Additional Health Concerns Assessment Noted Time PHQ-9 Depression Total Score: 0 09/29/20 22 9:25 AM EST documented as of this encounter Care Teams Cupola Patcher Helper Relationship Specialty Start Date End Date Robert Mccollum MD 505 [place] [address] PCP - General Internal Medicine 02/24/20 documented as of this encounter
--- OUTSIDE RECORDS SUMMARY | 2025-02-15 10:40 | XMS_ITS | Clinical Summary ---
Author Organization [facility] Address [address] [address] Phone Care Team Providers Care Manhole Stripper Name Role Phone Robert Luz Primary Care Provider [phone] [phone] Allergies No known active allergies Medications acetaminophen [...] [facility] [address] [address] Althea Crabtree ARNP [address] [address] Health Maintenance Due Date Last Done Comments Breast Cancer Screening 1972 Hepatitis B Vaccine (1 of 3 - 19+ 3-dose series) 1991 Pneumococcal Vaccine: 50+ Ye ars (1 of 2 - PCV) 1991 Colorectal Cancer Screening: Annual FOBT 2021 Colorectal Cancer Screening: Colonoscopy 2021 Colorectal Cancer Screening: Sigmoidoscopy 2021 Influenza Vaccine Completed 06/29/2024, , 08/26/2017 Insurance Medicaid Medicaid Care Teams Manhole Stripper Relationship Specialty Start Date End Date Luz, Robert NPTeto: [phone] PCP - General Internal Medicine 01/15/23
--- OUTSIDE RECORDS SUMMARY | 2025-02-15 10:40 | XMS_ITS | Encounter Summary ---
Author Organization [employer] Address [address] [place] [address] [facility] [place] [address] Care Team Providers Care Serger Name Role Phone Robert Mccollum MD Primary Care Prov ider Encounter Details Date Type Department Care Team (Late Contact Info) Description 06/10/2023 Orders Only [facility] MED & PEDS [address] [place] [address] Robert Mccollum MD 505 [place] [address] Social History Tobacco Use Types Packs/Day Years [...] Description 02/16/2025 10:45 AM EDT Telemedicine [facility] MED & PEDS [address] [place] [address] Robert Mccollum MD 505 [place] [address] documented as of this encounter Visit Diagnoses Not on filedocumented in this encounter Additional Health Concerns Assessment Noted Time PHQ-9 Depression Total Score: 0 09/29/20 22 9:25 AM EST documented as of this encounter Care Teams Serger Relationship Specialty Start Date End Date Robert Mccollum MD 505 [place] [address] PCP - General Internal Medicine 02/24/20 documented as of this encounter
--- OUTSIDE RECORDS SUMMARY | 2025-02-15 10:40 | XMS_ITS | Encounter Summary ---
Author Organization [employer] Address 75 [facility] 7t [place] [address] Care Team Providers Care Superintendent Circus Name Role Phone Robert Mccollum MD Primary Care Prov ider Encounter Details Date Type Department Care Team ([facility] Contact Info) Description 10/08/2022 Orders Only [facility] MEDICINE [address] [place] [address] David Morataya MD [address] [place], [place] [phone] Psoriasis Social History Tobacco Use Types Packs/Day [...] Upcoming Encounters Date Type Department Care Team ([facility] Contact Info) Description 02/16/2025 10:45 AM EDT Telemedicine [facility] CH[facility] MED & PEDS 505 [place], [place] [phone] Robert Mccollum MD [address] [place] [address] documented as of this encounter Visit Diagnoses Diagnosis Psoriasis Other psoriasis documented in this encounter Additional Health Concerns Assessment Noted Time PHQ-9 Depression Total Score: 0 09/29/20 22 9:25 AM EST documented as of this encounter Care Teams Superintendent Circus Relationship Specialty Start Date End Date Robert Mccollum MD [address] [place] [address] PCP - General Internal Medicine 02/24/20 documented as of this encounter
--- OUTSIDE RECORDS SUMMARY | 2025-02-15 10:40 | XMS_ITS | Encounter Summary ---
Author Organization [employer] Address [address] [facility] 7t [place] [address] Care Team Providers Care Customer Consulting Manager Name Role Phone Robert Mccollum MD Primary Care Prov ider Encounter Details Date Type Department Care Team (Late st Contact Info) Description 02/13/2025 Population Health Risk Score [facility] (C3) Department [address] [facility] [address] [place] [address] Provider, Population Health Generic Social History Tobacco Use Types Packs/Day Years [...] Info) Description 02/16/2025 10:45 AM EDT Telemedicine [facility] MED & PEDS 505 [place] [address] Robert Mccollum MD 505 [place] [address] documented as of this encounter Visit Diagnoses Not on filedocumented in this encounter Additional Health Concerns Assessment Noted Time PHQ-9 Depression Total Score: 8 11/03/19 25 4:21 PM EST documented as of this encounter Care Teams Customer Consulting Manager Relationship Specialty Start Date End Date Robert Mccollum MD 505 [place] [address] PCP - General Internal Medicine 02/24/20 documented as of this encounter
== END 2025-02-15 09:48 | disposition home or self-care (01) ==
LOC: HO.MAMMO 09:47
PROVIDERS: PCP Internal Medicine; Visit Provider Internal Medicine
DX: Z12.31 Encounter for screening mammogram for malignant neoplasm of breast (principal)
CPT/HCPCS: 77063; 77067

== ENCOUNTER → 2025-02-15 10:00 | Outpatient (BNV) | payer OTHER, SELFPAY | PROVIDERS: PCP Internal Medicine; Visit Provider Internal Medicine | DX: Z12.31 Encounter for screening mammogram for malignant neoplasm of breast (principal) | CPT/HCPCS: 77063; 77067 ==

== ENCOUNTER 2025-03-06 12:08 | Outpatient (AMB) | payer MEDICAID, SELFPAY ==
--- NOTE | 2025-03-06 12:10 | MHC.OFFVIS ---
Intake Visit Reasons: OV-Left TKA 07/27/24 NE-4 WK follow up Intake Note: Susan is a 54 year old female who presents today for a post op appointment s/p Left TKA 07/27/24 NE. Patient reports that she is doing well she has cocnerns of increased swelling s/p prolonged walking Allergies No Known Allergies [No Known Allergies*] Allergy (Verified 08/11/24 12:37) HPI HPI OV-Left TKA 07/27/24 NE-4 WK follow up: Details: Six months status post left knee replacement. She has minimal pain but does note that she has intermittent swelling of the left knee. Denies fevers and chills. Walks comfortably. Her primary pain complaint is right knee pain. She had a steroid injection recently but there was not very effective. [facility] Medical History Back pain Anemia GERD (gastroesophageal reflux disease) HTN (hypertension) History of high blood pressure Right upper quadrant abdominal pain Appendicitis Gastropathy Surgical History Hx of colonoscopy Hx of tubal ligation History of cholecystectomy History of section Family History Father No problems noted. Mother HTN (hypertension), benign Social History Household Members: Spouse and Children Housing: House Are you a primary pet care worker to a significant other at home: No Do you presently have visiting nurse or other home services: No Alcohol intake: never Patient Tobacco Use Status: Never used Tobacco Current occupational status: employed Physical Exam Extrem Other: Left knee incision clean dry and intact. 0-125 degrees motion. Stable to varus valgus stress. No appreciable swelling or effusion. Right knee with medial compartment tenderness to palpation. Mild effusion. Loss of terminal extension and proximally 5 degrees. Assessment & Plan Assessment & Plan (1) Status post total knee replacement, left: Code(s): Z96.652 - Presence of left artificial knee joint Category: Surgical Plan: Status post left knee replacement doing well. Intermittent swelling of unknown etiology. My suspicion is this is from deconditioning. I recommend she continue to strengthen. No evidence of infection. (2) Osteoarthritis of right knee: Code(s): M17.11 - Unilateral primary osteoarthritis, right knee Category: Medical Plan: Right knee injections for her osteoarthritis have not been helpful. I recommend viscosupplementation. Coding Level of Care Code Est Pt Level 3 (67435) Complex EM visit Add On G2211 Diagnoses Status post total knee replacement, left Z96.652 Osteoarthritis of right knee M17.11
--- OUTSIDE RECORDS SUMMARY | 2025-03-06 12:39 | XMS_ITS | Encounter Summary ---
Author Organization [employer] Address [address] [place] [address] 7 [place] [address] Care Team Providers Care Business Leader Name Role Phone Robert Mccollum MD Primary Care Prov ider Encounter Details Date Type Department Care Team (Late Contact Info) Description 06/10/2023 Orders Only [facility] MED & PEDS 505 [place] [address] Robert Mccollum MD 505 [place] [address] Social History Tobacco Use Types Packs/Day Years [...] Department Care Team (Late Contact Info) Description 05/19/2025 11:15 AM EDT Telemedicine [facility] MED & PEDS 505 [place] [address] Robert Mccollum MD 505 [place] [address] documented as of this encounter Visit Diagnoses Not on filedocumented in this encounter Additional Health Concerns Assessment Noted Time PHQ-9 Depression Total Score: 0 09/29/20 22 9:25 AM EST documented as of this encounter Care Teams Business Leader Relationship Specialty Start Date End Date Robert Mccollum MD 505 [place] [address] PCP - General Internal Medicine 02/24/20 documented as of this encounter
--- OUTSIDE RECORDS SUMMARY | 2025-03-06 12:39 | XMS_ITS | Encounter Summary ---
Author Organization [facility] Address [address] [place] [address] Care Team Providers Care Acid Tester Name Role Phone Robert Mccollum Primary Care Provide r Reason for Visit * Reason Onset Date Comments Med Refill 02/09/2025 Zepbound Encounter Details Date Type Department Care Team (Late Contact Info) Description 02/09/2025 Telephone Bariatric Surgery [facility] [address] [address] Regine Castanon MD [address] [address] Med Refill (Zepbound) Social History Tobacco Use [...] Visit Bariatric Surgery [facility] [address] [phone] Regine Castanon MD [address] [place] [address] documented as of this encounter Visit Diagnoses Not on filedocumented in this encounter Care Teams Acid Tester Relationship Specialty Start Date End Date Robert Mccollum [address] [place], [place] PCP - General Internal Medicine 05/02/22 documented as of this encounter
--- OUTSIDE RECORDS SUMMARY | 2025-03-06 12:39 | XMS_ITS | Encounter Summary ---
Author Organization [employer] Address 75 [facility] 7t [place] [address] Care Team Providers Care House Builder Name Role Phone Robert Mccollum MD Primary Care Prov ider Encounter Details Date Type Department Care Team ([facility] st Contact Info) Description 11/12/2022 Telephone [facility]S [address] [place], [place] [phone] Robert Mccollum MD 505 [place] [address] Social History Tobacco Use Types Packs/Day Years [...] AM EST Tc from pt calling to [facility] requesting a folic acid medication that was talked on yesterday appt with Dr. Luz. Integrated Circuit Design Engineer see on assessment/plan ( - folic acid 1 mg in sodium chloride 0.9 %50 mL IVPB; Infuse 1 mg into a venous catheter 1 (one) time for 1 dose.) Integrated Circuit Design Engineer is confused also ptplease contact pt to clarify. Integrated Circuit Design Engineer check but is no script on [facility] . PCP DR. Luz documented in this encounter Plan of Treatment Upcoming Encounters Date Type Department Care Team (Late st Contact Info) Description 05/19/2025 11:15 AM EDT Telemedicine [facility] MED & PEDS [address] [place] [address] Robert Mccollum MD 505 [place] [address] documented as of this encounter Visit Diagnoses Diagnosis Preventative health care- Primary Routine general medical examination at a health care facility documented in this encounter Additional Health Concerns Assessment Noted Time PHQ-9 Depression Total Score: 0 09/29/20 22 9:25 AM EST documented as of this encounter Care Teams House Builder Relationship Specialty Start Date End Date Robert Mccollum MD 505 [place] [address] PCP - General Internal Medicine 02/24/20 documented as of this encounter
--- OUTSIDE RECORDS SUMMARY | 2025-03-06 12:39 | XMS_ITS | Clinical Summary ---
Author Organization [facility] Address [address] [address] Phone Care Team Providers Care Fuse Assembler Name Role Phone Robert Luz Primary Care Provider +1 [phone] Allergies No known active allergies Medications acetaminophen [...] [facility] [address] [address] Althea Crabtree ARNP [address] [address] Health Maintenance Due Date Last Done Comments Breast Cancer Screening 1972 Hepatitis B Vaccine (1 of 3 - 19+ 3-dose series) 1991 Pneumococcal Vaccine: 50+ Ye ars (1 of 2 - PCV) 1991 Colorectal Cancer Screening: Annual FOBT 2021 Colorectal Cancer Screening: Colonoscopy 2021 Colorectal Cancer Screening: Sigmoidoscopy 2021 Influenza Vaccine Completed 06/29/2024, , 08/26/2017 Insurance Medicaid Medicaid Care Teams Fuse Assembler Relationship Specialty Start Date End Date Luz, Robert NPTeto: [phone] PCP - General Internal Medicine 01/15/23
--- OUTSIDE RECORDS SUMMARY | 2025-03-06 12:39 | XMS_ITS | Clinical Summary ---
Author Organization [employer] Address [address] 7[address] [place] [address] Care Team Providers Care Armed Custom Protection Officer Name Role Phone Robert Mccollum MD Primary Care Prov ider Allergies No known active allergies Medications * This document contains information received from the source organization and may not represent a complete record from that organization. methotrexate 2.5 MG tabletIndicatio ns:Psoriasis Follow directions carefully, and ask to explain any part you do not understand. Take exactly as directed. 24 tablet 2 11/11/19 23 Active methotrexate 2.5 MG tabletIndicatio ns:Psoriasis 6 tabs once a weeks 24 tablet 11/11/19 23 Active ustekinumab (Stelara) injectionIndica tions:Psoriasis Inject 1 mL (90 mg) under the skin every 3 (three) months. Starter: 90 mg day 1, 90 mg day 30, 90 mg every 3 months. Prefilled syringes. 1 mL 07/15/20 23 Active chlorthalidone (Hygroton) 25 MG tablet Take 1 tablet (25 mg) by mouth Once per day. 90 tablet 06/29/20 025 Active losartan (Cozaar) 100 MG tabletIndicatio ns:Benign essential hypertension Take 1 tablet (100 mg) by mouth Once per day. 90 tablet 06/29/20 24 Active ferrous sulfate (FerrouSul) 325 (65 Fe) MG tablet Take 1 tablet (325 mg) by mouth with breakfast. 30 tablet 06/29/20 24 025 Active Tirzepatide-Navi ght Management (Zepbound) 10 MG/0.5ML solution auto-injector Inject 10 mg under the skin 1 (one) time per week. Active spironolactone (Aldactone) 100 MG tablet Take 1 tablet (100 mg) by mouth Once per day. 90 tablet 3 02/17/20 25 026 Active spironolactone (Aldactone) 100 MG tablet Take 1 tablet (100 mg) by mouth Once per day. 30 tablet 07/06/20 24 025 Discontinued(R eorder (will not trigger notification to Pharmacy)) Active Problems Problem Noted Date Diagnosed Date Severe anxiety with panic 02/17/2025 Assessment & Plan (02/21/2025 9:46 AM EDT): During IBH Consult Susan presenting with depressed mood, Tearful, crying spells , hopelessness, irritable mood, loss of interests/pleasure , sense of isolation/loneliness , isolating, change in appetite or weight overeating, changes in sleep difficulty falling asleep and difficulty staying asleep , fatigue/loss of energy, worthlessness, inappropriate/excessive guilt , difficulty concentrating and excessive worry/anxiety, difficulty controlling worry, anxiety/worry associated to restlessness and/or feeling keyed-up/On edge , easily fatigued , difficulty concentrating and/or mind going blank , and sleep disturbance difficulty falling asleep, and Fear , shortness of breath, palpitations, shaking, fear that something bad is going to happen; for a period of 0-6 mo, for most or all symptoms in the context of illness or family illness. Pt reports feeling emotionally overwhelmed due to recent changes in her medical condition. Pt with RA and chronic knee problems that require surgery. Pt associates the changes in her body with clinical presentation of sxs. Explored chronic illness and association with her sense of isolation and importance of processing grief after getting medical diagnosis. Susan has positive support received by her family and buddhism community. Pt will be referred for OP therapy services. Declined medication management referral. clinician provided a safe space for pt to share her emotions. clinician will follow-up to assess sxs and services. Other fatigue 11/03/2024 Assessment & Plan (11/03/2024 6:24 PM EST): Most likely related to depression, but will order blood work to evaluate secondary causes Current mild episode of cathy r depressive disorder without prior episode 11/03/2024 Assessment & Plan (02/21/2025 9:46 AM EDT): During IBH Consult Susan presenting with depressed mood, Tearful, crying spells , hopelessness, irritable mood, loss of interests/pleasure , sense of isolation/loneliness , isolating, change in appetite or weight overeating, changes in sleep difficulty falling asleep and difficulty staying asleep , fatigue/loss of energy, worthlessness, inappropriate/excessive guilt , difficulty concentrating and excessive worry/anxiety, difficulty controlling worry, anxiety/worry associated to restlessness and/or feeling keyed-up/On edge , easily fatigued , difficulty concentrating and/or mind going blank , and sleep disturbance difficulty falling asleep, and Fear , shortness of breath, palpitations, shaking, fear that something bad is going to happen; for a period of 0-6 mo, for most or all symptoms in the context of illness or family illness. Pt reports feeling emotionally overwhelmed due to recent changes in her medical condition. Pt with RA and chronic knee problems that require surgery. Pt associates the changes in her body with clinical presentation of sxs. Explored chronic illness and association with her sense of isolation and importance of processing grief after getting medical diagnosis. Susan has positive support received by her family and buddhism community. Pt will be referred for OP therapy services. Declined medication management referral. clinician provided a safe space for pt to share her emotions. clinician will follow-up to assess sxs and services. Assessment & Plan (11/03/2024 6:24 PM EST): [...] Iron deficiency anemia 07/15/2023 Assessment & Plan (02/16/2025 12:24 PM EDT): Continue oral iron replacement, new labs will be ordered on next visit Assessment & Plan (02/15/2024 10:50 AM EDT): [...] Benign essential hypertension 06/22/2018 Assessment & Plan (02/16/2025 12:24 PM EDT): Controlled, keep low sodium diet and exercise as tolerated, keep bp log, target <140/90, follow up in 3 months Assessment & Plan (11/03/2024 6:25 PM EST): [...] medication. Unsure name of med, but per Vysr rec, spironolactone 100mg daily was rx by [...] organization. Date Type Department Care Team Description 02/16/2025 10:45 AM EDT Telemedicine [facility] MED & PEDS [address] [place] [address] Robert Mccollum MD Benign essential hypertension (Primary Dx); Other iron deficiency anemia 02/16/2025 Travel 02/15/2025 Orders Only [facility] MED & PEDS [address] [place] [address] Robert Mccollum MD 02/13/2025 Population Health Risk Score [facility] () Department [address] [place] [phone] Provider, Population Health Generic from Last 3 Months Immunizations Immunization Administration Dates Next Due Influenza injectable quadriv [...] Answer Date Recorded Patient Health Questionnaire-9 Score 15 02/20/2025 Patient Health Questionnaire-9 Score 15 02/20/2025 Last PHQ-9: Questionnaire Data Not on file 0 02/20/2025 Housing Stability Answer Date Recorded What is [...] Answer Date Recorded Patient Health Questionnaire-2 Score 6 02/20/2025 Comments Unknown Sex and Gender Information Value Date Recorded Sex Assigned at Female 08/18/2022 10:32 AM EDT Legal Sex Female 10:32 AM EDT Gender Identity Choose not to disclose 10:32 AM EDT Sexual Orientation Choose not to disclose 2021 10:32 AM EDT Last Filed Vital Signs Vital Sign Reading Time Taken Comments Blood Pressure 120/86 02/16/2025 10:49 AM EDT Pulse 84 11/03/2024 4:01 PM EST Temperature [...] Info) Description 05/19/2025 11:15 AM EDT Telemedicine [facility] MED & PEDS [address] [place] [address] Robert Mccollum MD [address] [place] [address] Health Maintenance Due Date Last Done Comments CT Colonography 1972 Colonoscopy 1972 Colorectal Cancer Screening 1972 Dental X-Ray: Full Mouth 1972 FIT DNA/Cologuard 1972 FIT 1972 FOBT 1972 Sigmoidoscopy 1972 Disability Screening 1972 Alcohol/Substance Use Screening 1984 Family Planning (PISQ) 1987 Hepatitis B Vaccines (1 of 3 - 19+ 3-dose series) 1991 Pneumococcal Vaccine: 50+ Years (1 of 1 - PCV) 2022 Zoster Vaccines (1 of 2) 2022 Dental Prophylaxis 08/29/2023 02/25/2023 Dental Oral Exam 09/18/2023 03/17/2023 Dental X-Ray: Bitewings 03/18/2024 03/17/2023 COVID-19 Vaccine ( season) 2024 11/05/2021, 03/27/2021, 02/27/2021 SDOH Screening 02/14/2025 02/15/2024 Tobacco Screening 11/03/2025 11/03/2024 Depression Screening 02/20/2026 02/20/2025, 02/21/20 Mammogram 02/15/2027 02/15/2025, 01/18, 10/03/2022 Lipid Panel 06/29/2029 06/29/2024, 12/18, 08/12/2022, [...] Procedure Name Priority Date/Time Associated Diagnosis Comments BI MAMMOGRAM SCREENING TOMOSYNTHESIS BILATERAL Routine 02/15/2025 10:00 AM EDT HEPATITIS C AB W/REFL TO HCV RNA, QN, PCR Routine 06/29/2024 11:30 AM EDT Benign essential hypertension LIPID PANEL, STANDARD Routine 06/29/2024 11:30 AM EDT Benign essential hypertension BITEWINGS - 2 RADIOGRAPHIC IMAGES Routine 03/17/2023 [...] Recently Relevant to Health Maintenance Results * BI Mammogram Screening Tomosynthesis Bilateral (02/15/2025 10:00 AM EDT) Anatomical Region Laterality Modality Breast Bilateral Mammography 02/15/2025 10:0 0 AM EDT Narrative 02/20/2025 5:13 PM EDT ? [facility] ? [address] [facility] ?[place] [address] ?[phone] ? Mammography Report ? Signed ? Patient: Matos Chino,Susan ?MR#: [id number] ?? [id number] ? : 1970 ?Acct:[id number] ? Age/Sex: 54 / F ?ADM Date: 04/30/25 ? Loc: HO.MAMMO ? Attending : Robert Alejandro MD ? Ordering Physician: Robert Mccollum MD ?Res ?? ults: 2Benign Findings ? Date of Service: 02/15/25 ?Follow Up: 1 Year From Orig ?? inal Mammogram ? Procedure(s): MM tomosynthesis screening BI ?? Accession Number(s): [id number] ? cc: Robert Mccollum MD ? EXAMINATION: ?? MM SCREENING DIGITAL BREAST TOMOSYNTHESIS, BILATERAL ? CLINICAL INFORMATION: ? Screening. Asymptomatic. ? COMPARISON: ?? Mammography: Comparison is made with available priors ? TECHNIQUE: ?? Digital breast mammography with tomosynthesis is performed in both the ?? craniocaudal and mediolateral oblique views along with computer-aided ?? detection (CAD). ? FINDINGS: ?? The breasts are heterogeneously dense, which may obscure small masses ?? (ACR BI-RADS breast composition Category c). ?? Lateral marker clips. ?? Grouped coarse calcifications in the upper outer right breast posterior ?? depth are stable. ?? Oval mass retroareolar region with internal marker clip is stable. ?? bilateral circumscribed oval masses which wax and wane consistent with ?? benign fibrocystic changes. ?? There are no significant masses, abnormal calcifications, or other ?? abnormalities. ? MM/MM tomosynthesis screening BI ?? IMPRESSION: ?? No mammographic evidence of malignancy. ? ASSESSMENT: ? BI-RADS BI-RADS 2 - Benign Findings ? RECOMMENDATION: ?? Routine annual mammography screening. ? 1 year F/U ? This examination should not preclude the clinical evaluation of a ?? suspicious palpable abnormality. ? This patient's information was entered into a reminder system with a ?? target due date for their next mammogram. ? Electronically signed by: ??Rachel Crocker DO ??02/20/2025 05:11 PM EDT ? Dictated By: ?Rachel Crocker DO ? Signed By: ?<Electronically signed by Rachel Crocker, DO in OV> ? 02/20/25 1711 ? DD/ 1000 ? TD/TT: 02/15/25 1015 ? Unit Assembler: ? Procedure Note Donviniter, Image - 02/20/2025 Sh[facility] [address] [place] [address] Mammography Report Signed Patient: Joycelyn Scherer#: [id number] : 1970Acct:[id number] Age/Sex: 54 / FADM Date: 02/15/25 Loc: HO.MAMMO Attending Dr: Robert Alejandro MD Ordering Physician: Robert Mccollum ults: 2Benign Findings Date of Service: 02/15/25Follow Up: 1 Year From Orig inal Mammogram Procedure(s): MM tomosynthesis screening BI Accession Number(s): [id number] cc: Robert Mccollum MD EXAMINATION: MM SCREENING DIGITAL BREAST TOMOSYNTHESIS, BILATERAL CLINICAL INFORMATION: Screening. Asymptomatic. COMPARISON: Mammography: Comparison is made with available priors TECHNIQUE: Digital breast mammography with tomosynthesis is performed in both the craniocaudal and mediolateral oblique views along with computer-aided detection (CAD). FINDINGS: The breasts are heterogeneously dense, which may obscure small masses (ACR BI-RADS breast composition Category c). Lateral marker clips. Grouped coarse calcifications in the upper outer right breast posterior depth are stable. Oval mass retroareolar region with internal marker clip is stable. bilateral circumscribed oval masses which wax and wane consistent with benign fibrocystic changes. There are no significant masses, abnormal calcifications, or other abnormalities. MM/MM tomosynthesis screening BI IMPRESSION: No mammographic evidence of malignancy. ASSESSMENT: BI-RADS BI-RADS 2 - Benign Findings RECOMMENDATION: Routine annual mammography screening. 1 year F/U This examination should not preclude the clinical evaluation of a suspicious palpable abnormality. This patient's information was entered into a reminder system with a target due date for their next mammogram. Electronically signed by: Rachel Crocker DO 02/20/2025 05:11 PM EDT RP Dictated By: Rachel Crocker DO Signed By: <Electronically signed by Rachel Crocker DO in OV> 02/20/25 1711 DD/ 1000 TD/TT: 02/15/25 1015 Unit Assembler: Robert Alejandro MD IMG BI PROCEDURES Final Result * Hepatitis C Antibody with Reflex to HCV, RNA, Quantitative, Real-Time PCR (06/29/2024 11:30 AM EDT) Hepatitis C Antibody Nonreactive Nonreactive [facility] Comment:Antibodies to HCV no t detected; does not exclude early acuteHCV infection. Blood Venous blood specimen / Unknown 06/29/2024 11:30 AM EDT 06/29/2024 1:46 PM EDT Robert Alejandro MD LAB BLOOD ORDERABL ES Final Result [facility] [address] [place] [phone] * (ABNORMAL) Lipid Panel, Standard (06/29/2024 11:30 AM EDT) Triglycerides 113 <150 mg/dL [facility] Comment:Desirable Triglyceri de: less than 150 mg/dLBorderline High Triglyceride 150-199 mg/dLHigh Triglyceride: 200-499 mg/dLVery High Triglyceride: greater than or equal to 5OO mg/dL Cholesterol 157 <200 mg/dL [facility] Comment:Desirable Cholestero l: less than 200 mg/dLBorderline High Cholesterol: 200-239 mg/dLHigh Cholesterol: greater than 239 mg/dL LDL Cholesterol Calculated 98 <100 mg/dL [facility] Comment:Desirable LDL: less than 100 mg/dLNear Optimal/Above Optimal LDL: 110- 129 mg/dLBorderline High LDL: 130-159 mg/dLHigh LDL: 160-189 mg/dLVery High LDL: greater than or equal to 190 mg/dL HDL Cholesterol 37(L) >40 mg/dL [facility] Comment:Desirable HDL: great er than 40 mg/dL Note: This HDL assay may give artificially low results in patients with liver disease. Blood Venous blood specimen / Unknown 06/29/2024 11:30 AM EDT 06/29/2024 1:46 PM EDT Robert Alejandro MD LAB BLOOD ORDERABL ES Final Result [facility] [address] [place] [phone] * HIV 1/2 ANTIGEN/ANTIBODY,FOURTH GENERATION W/RFL (06/10/2021 11:45 AM EDT) Pathologist [facility] HIV-1/2 ANTIGEN AND ANTIBODIES, 4TH GENERATION W/ REFLEX NON-REACT LINDA NON-REACT LINDA [facility] Comment: HIV-1 antigen and HIV-1/HIV-2 [...] ? For additional information please refer to http://education.VisionGate.QWiPS/faq/GHJ569 (This link is being provided for informational/ educational purposes only.) ? The performance of this assay has not been clinically validated in patients less than 2 years old. ?? 06/10/2021 11:4 5 AM EDT Robert Alejandro MD LAB BLOOD ORDERABL ES Final Result Performing Organization Address [facility] de Phone Number [facility] [address] * HPV mRNA E6/E7 (09/18/2020 4:09 PM EST) HPV nRNA E6/E7 Not Detected Not Detected [facility] Comment: This test was performed using the APTIMA HPV Assay ([employer] This assay detects E6/E7 viral messenger RNA (mRNA) from 14 high-risk HPV types (16,18,31,33,35,39,45,51,52,56,58,59,66,68). ?? The analytical performance characteristics of this assay have been determined by [employer]. The modifications have not been cleared or approved by the FDA. This assay has been validated pursuant to the CLIA regulations and is used for clinical purposes. 09/18/2020 4:09 PM EST Floresita JOHNSON LAB BLOOD ORDERABLES Pina l Result Performing Organization Address [facility] de Phone Number [facility] [address] * Hm Pap Smear (09/18/2020) HM Pap smear PERFORMED Historical Provider HEALTH MAINTENANCE Final Result from Last 3 Months or Most Recently Relevant to Health Maintenance Insurance [facility] C3 DENTAL - HSN PARTIAL (MEDICAID) Care Teams Armed Custom Protection Officer Relationship Specialty Start Date End Date Robert Mccollum MD [address] [place] [phone] PCP - General Internal Medicine 02/24/20
--- OUTSIDE RECORDS SUMMARY | 2025-03-06 12:39 | XMS_ITS | Encounter Summary ---
Author Organization [employer] Address [address] [place] [address] [address] [place] [address] Care Team Providers Care Laborer Tree Tapping Name Role Phone Robert Mccollum MD Primary Care Prov ider Encounter Details Date Type Department Care Team (Late Contact Info) Description 04/28/2023 Orders Only [facility] & PEDS [address] [place] [address] David Morataya MD [address] [place] [address] Psoriasis (Primary Dx) Social History Tobacco Use [...] Info) Description 05/19/2025 11:15 AM EDT Telemedicine [facility] MED [facility] PEDS [address] [place] [address] Robert Mccollum MD [address] [place] [address] documented as of this encounter Visit Diagnoses Diagnosis Psoriasis- Primary Other psoriasis documented in this encounter Additional Health Concerns Assessment Noted Time PHQ-9 Depression Total Score: 0 09/29/20 22 9:25 AM EST documented as of this encounter Care Teams Laborer Tree Tapping Relationship Specialty Start Date End Date Robert Mccollum MD [address] [place] [address] PCP - General Internal Medicine 02/24/20 documented as of this encounter
--- OUTSIDE RECORDS SUMMARY | 2025-03-06 12:39 | XMS_ITS | Encounter Summary ---
Author Organization [employer] Address [address] [facility] 7[address] [place] [address] Care Team Providers Care Automobile Leasing Supervisor Name Role Phone Robert Mccollum MD Primary Care Prov ider Encounter Details Date Type Department Care Team ([facility] Contact Info) Description 10/08/2022 Orders Only [facility] MEDICINE [address] [place] [address] David Morataya MD [address] [place], [place] [phone] Psoriasis Social History Tobacco Use Types Packs/Day [...] Upcoming Encounters Date Type Department Care Team ([facility] Contact Info) Description 05/19/2025 11:15 AM EDT Telemedicine [facility] MED [facility] PEDS [address] [place], [place] [phone] Robert Mccollum MD [address] [place] [address] documented as of this encounter Visit Diagnoses Diagnosis Psoriasis Other psoriasis documented in this encounter Additional Health Concerns Assessment Noted Time PHQ-9 Depression Total Score: 0 09/29/20 22 9:25 AM EST documented as of this encounter Care Teams Automobile Leasing Supervisor Relationship Specialty Start Date End Date Robert Mccollum MD [address] [place] [address] PCP - General Internal Medicine 02/24/20 documented as of this encounter
--- OUTSIDE RECORDS SUMMARY | 2025-03-06 12:39 | XMS_ITS | Encounter Summary ---
Author Organization [employer] Address [address] [place] [address] [address] [place] [address] Care Team Providers Care Metal Casket Assembler Name Role Phone Robert Mccollum MD Primary Care Prov ider Encounter Details Date Type Department Care Team (Latest Contact Info) Description 03/27/2022 Abstract [facility] CONVERSIONS Dental, Provider, DDS Social History [...] Info) Description 05/19/2025 11:15 AM EDT Telemedicine [facility] PEDS [address] [place] [address] Robert Mccollum MD [address] [place] [address] documented as of this encounter Visit Diagnoses Not on filedocumented in this encounter Care Teams Metal Casket Assembler Relationship Specialty Start Date End Date Robert Mccollum MD [address] [place] [address] PCP - General Internal Medicine 02/24/20 documented as of this encounter
--- OUTSIDE RECORDS SUMMARY | 2025-03-06 12:39 | XMS_ITS | Clinical Summary ---
Author Organization [address] [facility] Address [address] [place] [address] Phone Care Team Providers Care Oakes Machine Operator Name Role Phone Robert Mccollum Primary Care [...] Team Description 02/09/2025 Telephone Bariatric Surgery - [address] [phone] Regine Castanon MD Med Refill (Zepbound) 01/11/2025 Telephone Bariatric Surgery [address] [phone] Regine Castanon MD Med Refill (Zepbound) 12/15/2024 Telephone Bariatric Surgery [address] [address] Regine Castanon MD Med Refill (Zepbound) from Last 3 Months Immunizations Name Administration Dates Next Due Moderna SARS-CoV-2 COVID-19, mRNA, LNP-S, preservative free 03/27/2021,02/27/2021 Surgical History Surgery Date Site/Laterality Comments OTHER SURGICAL HISTORY 2000 PROCEDURE: SD LIG/TRNSXJ FLP TUBE ABDL/VAG APPR UNI/BI; COMMENT: SD SECTION 2000 PROCEDURE: SD DELIVERY ONLY; COMMENT: SD CHOLECYSTECTOMY 2004 PROCEDURE: SD LAPAROSCOPY SURG CHOLECYSTECTOMY; COMMENT: SD OTHER SURGICAL HISTORY 06/30/2022 PROCEDURE: SD LAPS TOTAL HYSTERECT 250 GM/< W/RMVL TUBE/OVARY; [...] AM EDT Office Visit Bariatric Surgery - [place] [address] [facility] [address] [place] [address] Regine Castanon MD [address] [facility] [address] [place] [address] Health Maintenance Due Date Last Done Comments [...] Results * Annual BMP Blood Test (06/29/2024) Annual BMP Blood Test Abstracted us Historical Provider HEALTH MAINTENANCE Final Result * Hepatitis C Screening (06/29/2024) Hepatitis C Screening Abstracted [facility] Final Result * Lipid panel (06/29/2024) Pathologist [facility] LDL/HDL Ratio 0 Comment:No Interpretation Triglycerides 0 mg/dL Comment:No Interpretation Cholesterol 0 mg/dL Comment:No Interpretation HDL 0 mg/dL Comment:No Interpretation LDL Cholesterol 0 mg/dL Comment:No Interpretation Blood Venous blood specimen / Unknown [facility] LAB BLOOD ORDERABLES Pina l Result * Depression Screening (02/04/2024) Pathologist [facility] Depression Screening Abstracted [facility] Final Result * Pap Smear (04/24/2022) Pathologist [facility] Pap smear No Interpretation , Abstracted [facility] Final Result * HIV Screening (06/10/2021) Pathologist [facility] HIV Screening Abstracted [facility] Final Result * DX MAMMO INCL CAD [...] the patient's daughter, who acted as a collaborative physician for the patient, at 6:22 PM on [...] with the patient's daughter, who actedas a collaborative physician for the patient, at 6:22 PM on [...] to follow when results become available. Amie Daniel JACOBSON IMG BI PROCEDURES Edited Result - Final from Last 3 Months or Most Recently Relevant to Health Maintenance Insurance [employer] Care Teams Oakes Machine Operator Relationship Specialty Start Date End Date Robert Mccollum [address] [place] [address] PCP - General Internal Medicine 05/02/22
--- OUTSIDE RECORDS SUMMARY | 2025-03-06 12:39 | XMS_ITS | Encounter Summary ---
Author Organization [employer] Address [address] [place] [address] [address] [place] [address] Care Team Providers Care Paleology Professor Name Role Phone Robert Mccollum MD Primary Care Prov ider Encounter Details Date Type Department Care Team (Late Contact Info) Description 11/05/2022 Abstract [facility] [address] [place] [address] Robert Mccollum MD [address] [place] [address] Social History Tobacco Use Types Packs/Day Years [...] Info) Description 05/19/2025 11:15 AM EDT Telemedicine [facility] [address] [place] [address] Robert Mccollum MD [address] [place] [address] documented as of this encounter Visit Diagnoses Not on filedocumented in this encounter Additional Health Concerns Assessment Noted Time PHQ-9 Depression Total Score: 0 09/29/20 22 9:25 AM EST documented as of this encounter Care Teams Paleology Professor Relationship Specialty Start Date End Date Robert Mccollum MD [address] [place] [address] PCP - General Internal Medicine 02/24/20 documented as of this encounter
--- OUTSIDE RECORDS SUMMARY | 2025-03-06 12:39 | XMS_ITS | Clinical Summary ---
Author Organization [facility] Address [address] [place] [address] Care Team Providers Care Rock Contractor Name Role Phone Robert Luz MD Primary Care Provider +1 [phone] Allergies No known active allergies Social History [...] age to complete this topic Care Teams Rock Contractor Relationship Specialty Start Date End Date Robert Luz MD [address] [place] [address] PCP - General Internal Medicine 05/02/22
== END 2025-03-06 12:38 | disposition home or self-care (01) ==
LOC: HO.HOS 12:08
PROVIDERS: PCP Internal Medicine; Visit Provider Orthopaedic Surgery
DX: Z47.89 Encounter for other orthopedic aftercare (principal); Z96.652 Presence of left artificial knee joint; M17.11 Unilateral primary osteoarthritis, right knee
CPT/HCPCS: 99213

== ENCOUNTER → 2025-03-06 12:08 | Outpatient (BNVA) | payer MEDICAID, SELFPAY | PROVIDERS: PCP Internal Medicine; Visit Provider Orthopaedic Surgery | DX: M17.11 Unilateral primary osteoarthritis, right knee (principal); Z96.652 Presence of left artificial knee joint | CPT/HCPCS: 99212 ==

== ENCOUNTER 2025-03-27 13:45 | Outpatient (AMB) | payer MEDICAID, SELFPAY ==
[2025-03-27 14:08] VITALS: BMI 32.9
--- NOTE | 2025-03-27 14:08 | A.OFFVIS_ITS ---
Vital Signs 03/27/25 14:08 Height 5 ft 5 in Weight 198 lb BMI 32.9 Intake Visit Reasons: Right Knee Euflexxa #1 Intake Note: Susan is a 54 year old female who presents today for Right Knee Euflexxa Injection #1. Allergies No Known Allergies [No Known Allergies*] Allergy (Verified 08/11/24 12:37) HPI HPI Right Knee Euflexxa #1: Details: Susan is a 54 year old female who presents today for Right Knee Euflexxa Injection #1. PFSH Medical History Back pain Anemia GERD (gastroesophageal reflux disease) HTN (hypertension) History of high blood pressure Right upper quadrant abdominal pain Appendicitis Gastropathy Surgical History Hx of colonoscopy Hx of tubal ligation History of cholecystectomy History of section Family History Father No problems noted. Mother HTN (hypertension), benign Social History Household Members: Spouse and Children Housing: House Are you a primary early breastfeeding care specialist to a significant other at home: No Do you presently have visiting nurse or other home services: No Alcohol intake: never Patient Tobacco Use Status: Never used Tobacco Current occupational status: employed Physical Exam Vital Signs: BMI result Body Mass Index 32.9 Extrem Other: skin c/d/i Office Procedures Joint Inj/Aspir; Non-Pain Clin Joint Injection/Drain Details: Injected Euflexxa. Site was prepped using aseptic technique. Patient tolerated the procedure well. Shoulders, Hips, Knees, Knee Large Joint Injection : Right Knee Coding Procedure code (CPT) selection complete Assessment & Plan Assessment & Plan (1) Osteoarthritis of right knee: Code(s): M17.11 - Unilateral primary osteoarthritis, right knee Category: Medical Plan: Injected right knee today. No complications follow up 1 week for repeat injection. Coding Level of Care Code Est Pt Level 2 (86873) Diagnoses Osteoarthritis of right knee M17.11 CPT Codes Shoulders, Hips, Knees, - Knee Large Joint Injection : Right Knee ([id number])
--- OUTSIDE RECORDS SUMMARY | 2025-03-27 15:34 | XMS_ITS | Clinical Summary ---
Author Organization [facility] Address [address] [place] [address] Care Team Providers Care Cad Draftsman Name Role Phone Robert Luz MD Primary Care Provider +1 [phone] Allergies No known active allergies Social History [...] Vaccine (1 of 2) 2022 Influenza Vaccine (Season Ended) 2025 Pneumococcal Vaccine Aged Out No long er eligible based on patient's age to complete this topic RSV Ped < 20 months Aged Out No longe r eligible based on patient's age to complete this topic Care Teams Cad Draftsman Relationship Specialty Start Date End Date Robert Luz MD [address] [place] [address] PCP - General Internal Medicine 05/02/22
== END 2025-03-27 14:26 | disposition home or self-care (01) ==
LOC: HO.HOS 13:46
PROVIDERS: Visit Provider Orthopaedic Surgery
DX: M17.11 Unilateral primary osteoarthritis, right knee (principal)
CPT/HCPCS: 20610

== ENCOUNTER → 2025-03-27 13:45 | Outpatient (BNVA) | payer MEDICAID, SELFPAY | PROVIDERS: Visit Provider Orthopaedic Surgery | DX: M17.11 Unilateral primary osteoarthritis, right knee (principal) | CPT/HCPCS: 20610; J7323 ==

== ENCOUNTER 2025-04-03 13:55 | Outpatient (AMB) | payer MEDICAID, SELFPAY ==
[2025-04-03 14:02] VITALS: BMI 32.9
--- NOTE | 2025-04-03 14:02 | MHC.OFFVIS ---
Vital Signs 04/03/25 14:02 Height 5 ft 5 in Weight 198 lb BMI 32.9 Intake Visit Reasons: Right Knee Euflexxa #2 Intake Note: Susan is a 54 year old female who presents today for Right Knee Euflexxa #2. Patient states that from the last injection she had mild relief. Patient reports no numbness or tingling. Allergies No Known Allergies (No Known Allergies*) Allergy (Verified 04/03/25 14:06) HPI HPI Right Knee Euflexxa #2: Details: Susan is a 54 year old female who presents today for Right Knee Euflexxa #2. Patient states that from the last injection she had mild relief. Patient reports no numbness or tingling. [facility] Medical History Back pain Anemia GERD (gastroesophageal reflux disease) HTN (hypertension) History of high blood pressure Right upper quadrant abdominal pain Appendicitis Gastropathy Surgical History Hx of colonoscopy Hx of tubal ligation History of cholecystectomy History of section Family History Father No problems noted. Mother HTN (hypertension), benign Social History Household Members: Spouse and Children Housing: House Are you a primary home child care provider to a significant other at home: No Do you presently have visiting nurse or other home services: No Alcohol intake: never Patient Tobacco Use Status: Never used Tobacco Current occupational status: employed Physical Exam Vital Signs: BMI result Body Mass Index 32.9 Extrem Other: skin c/d/i Office Procedures Joint Inj/Aspir; Non-Pain Clin Joint Injection/Drain Details: I injected her right knee with Euflexxa 20mg/2mL Syringe Shoulders, Hips, Knees, Knee Large Joint Injection : Right Knee Coding Procedure code (CPT) selection complete Assessment & Plan Assessment & Plan (1) Osteoarthritis of right knee: Code(s): M17.11 - Unilateral primary osteoarthritis, right knee Category: Medical Plan: Injected 2/3 Euflexxa Coding Level of Care Code Est Pt Level 2 (62332) Diagnoses Osteoarthritis of right knee M17.11 CPT Codes Shoulders, Hips, Knees, - Knee Large Joint Injection : Right Knee ([id number])
--- OUTSIDE RECORDS SUMMARY | 2025-04-03 15:35 | XMS_ITS | Clinical Summary ---
Author Organization [facility] Address [address] [place] [address] Care Team Providers Care Fractionating Still Operator Name Role Phone Robert Luz MD Primary Care Provider +1 [phone] Allergies No known active allergies Social History [...] age to complete this topic Care Teams Fractionating Still Operator Relationship Specialty Start Date End Date Robert Luz MD [address] [place] [address] PCP - General Internal Medicine 05/02/22
== END 2025-04-03 15:24 | disposition home or self-care (01) ==
LOC: HO.HOS 13:56
PROVIDERS: Visit Provider Orthopaedic Surgery
DX: M17.11 Unilateral primary osteoarthritis, right knee (principal)
CPT/HCPCS: 20610

== ENCOUNTER → 2025-04-03 13:55 | Outpatient (BNVA) | payer MEDICAID, SELFPAY | PROVIDERS: Visit Provider Orthopaedic Surgery | DX: M17.11 Unilateral primary osteoarthritis, right knee (principal) | CPT/HCPCS: 20610; J7323 ==

== ENCOUNTER 2025-04-10 13:47 | Outpatient (AMB) | payer MEDICAID, SELFPAY ==
[2025-04-10 14:01] VITALS: BMI 32.9
--- NOTE | 2025-04-10 14:01 | A.OFFVIS_ITS ---
Vital Signs 04/10/25 14:01 Height 5 ft 5 in Weight 198 lb BMI 32.9 Intake Visit Reasons: Right Knee Euflexxa #3 Intake Note: Susan is a 54 year old female who presents today for Right Knee Euflexxa #3. Allergies No Known Allergies (No Known Allergies*) Allergy (Verified 04/03/25 14:06) HPI HPI Right Knee Euflexxa #3: Details: Susan is a 54 year old female who presents today for Right Knee Euflexxa #3. PFSH Medical History Back pain Anemia GERD (gastroesophageal reflux disease) HTN (hypertension) History of high blood pressure Right upper quadrant abdominal pain Appendicitis Gastropathy Surgical History Hx of colonoscopy Hx of tubal ligation History of cholecystectomy History of section Family History Father No problems noted. Mother HTN (hypertension), benign Social History Household Members: Spouse and Children Housing: House Are you a primary patient care coordinator to a significant other at home: No Do you presently have visiting nurse or other home services: No Alcohol intake: never Patient Tobacco Use Status: Never used Tobacco Current occupational status: employed Physical Exam Vital Signs: BMI result Body Mass Index 32.9 Extrem Other: Skin clean dry and intact Office Procedures Joint Inj/Aspir; Non-Pain Clin Joint Injection/Drain Details: Injected Euflexxa. Site was prepped using aseptic technique. Patient tolerated the procedure well. Shoulders, Hips, Knees, Knee Large Joint Injection [id number]: Right Knee Coding Procedure code (CPT) selection complete Assessment & Plan Assessment & Plan (1) Osteoarthritis of right knee: Code(s): M17.11 - Unilateral primary osteoarthritis, right knee Category: Medical Plan: Injected 3/3 Euflexxa right knee. Follow up PRN 3 months Coding Level of Care Code Est Pt Level 2 (78679) Diagnoses Osteoarthritis of right knee M17.11 CPT Codes Shoulders, Hips, Knees, - Knee Large Joint Injection 37357: Right Knee ([id number])
--- OUTSIDE RECORDS SUMMARY | 2025-04-10 15:14 | XMS_ITS | Clinical Summary ---
Author Organization [facility] Address [address] [place] [address] Care Team Providers Care Aquatics Instructor Name Role Phone Robert Luz MD Primary Care Provider +1 [phone] Allergies No known active allergies Social History [...] 64 2022 3:40 PM EDT Temperature 36.4 C (97.6 F) 2022 3:40 PM EDT Respiratory Rate - - Oxygen Saturation 100% [...] age to complete this topic Care Teams Aquatics Instructor Relationship Specialty Start Date End Date Robert Luz MD [address] [place] [address] PCP - General Internal Medicine 05/02/22
== END 2025-04-10 14:40 | disposition home or self-care (01) ==
LOC: HO.HOS 13:48
PROVIDERS: Visit Provider Orthopaedic Surgery
DX: M17.11 Unilateral primary osteoarthritis, right knee (principal)
CPT/HCPCS: 20610

== ENCOUNTER → 2025-04-10 13:47 | Outpatient (BNVA) | payer MEDICAID, SELFPAY | PROVIDERS: Visit Provider Orthopaedic Surgery | DX: M17.11 Unilateral primary osteoarthritis, right knee (principal) | CPT/HCPCS: 20610; J7323 ==

== ENCOUNTER 2025-07-10 14:28 | Outpatient (REF) | payer MEDICAID, SELFPAY ==
--- OUTSIDE RECORDS SUMMARY | 2025-07-10 13:45 | XMS_ITS | Encounter Summary ---
Author Organization [employer] Address [address] [place] [address] Support Name Relationship Address Phone
[2025-07-10 18:35] LABS: Alanine Aminotransferase 21 U/L (0-31); Albumin Level 4.6 g/dL (3.5-5.0); Alkaline Phosphatase 76 U/L (39-117); Anion Gap 11 (12-20); Aspartate Amino Transferase 23 U/L (5-31); Blood Urea Nitrogen 22 mg/dL (9-16); Calcium 9.7 mg/dL (8.4-10.2); Carbon Dioxide 27 mmol/L (22-29); Chloride 105 mmol/L (96-108); Cholesterol 134 mg/dL (<200); Estimated Glomerular Filt Rate > 60; HDL Cholesterol 30 mg/dL (>40); Potassium 4.4 mmol/L (3.3-5.1); Sodium 139 mmol/L (135-145); Total Protein 7.5 g/dL (6.5-8.0); Triglycerides 108 mg/dL (<150)
== END 2025-07-10 14:29 | disposition home or self-care (01) ==
LOC: HO.CHCLDS 14:28
PROVIDERS: Absent Provider Registered Nurse; Visit Provider Internal Medicine
DX: M54.2 Cervicalgia (principal); I10 Essential (primary) hypertension
CPT/HCPCS: 36415; 72050; 80053; 80061; 84443

== ENCOUNTER → 2025-07-10 15:07 | Outpatient (BNV) | payer MEDICAID, SELFPAY | PROVIDERS: Absent Provider Registered Nurse; Visit Provider Radiology Diagnostic Radiology | DX: M54.2 Cervicalgia (principal) | CPT/HCPCS: 72050 ==

== ENCOUNTER 2025-08-14 10:56 | Outpatient (AMB) | payer MEDICAID, SELFPAY ==
--- NOTE | 2025-08-14 11:02 | A.OFFVIS_ITS ---
Intake Visit Reasons: OV-Right Knee f/u Euflexxa inj 04/10/25 Intake Note: Susan is a 55 year old female who presents today for a follow up of her Right Knee OA, about 3 months s/p Euflexxa series Allergies No Known Allergies (No Known Allergies*) Allergy (Verified 04/03/25 14:06) HPI HPI OV-Right Knee f/u Euflexxa inj 04/10/25: Details: 55-year-old status post right knee Euflexxa injections. She is doing well. Here today for follow up. She states she feels better. She does still have occasional pain but it is much more tolerable. PFS Medical History Back pain Anemia GERD (gastroesophageal reflux disease) HTN (hypertension) History of high blood pressure Right upper quadrant abdominal pain Appendicitis Gastropathy Surgical History Hx of colonoscopy Hx of tubal ligation History of cholecystectomy History of section Family History Father No problems noted. Mother HTN (hypertension), benign Social History Household Members: Spouse and Children Housing: House Are you a primary housekeeper child care to a significant other at home: No Do you presently have visiting nurse or other home services: No Alcohol intake: never Patient Tobacco Use Status: Never used Tobacco Current occupational status: employed Physical Exam Extrem Other: Left knee incision clean dry and intact. 0-125 degrees motion. Stable to varus valgus stress. No appreciable swelling or effusion. Right knee with mild medial compartment tenderness to palpation. Mild effusion. Loss of terminal extension of approximately 5 degrees. Assessment & Plan Assessment & Plan (1) Primary osteoarthritis of knees, bilateral: Code(s): M17.0 - Bilateral primary osteoarthritis of knee Category: Medical Plan: Status post right knee Euflexxa injection. Doing well. She may return in if pain returns and we can discuss additional injections and/or other treatment options. Coding Level of Care Code Est Pt Level 3 (15039) Diagnoses Primary osteoarthritis of knees, bilateral M17.0
--- OUTSIDE RECORDS SUMMARY | 2025-08-14 13:40 | XMS_ITS | Clinical Summary ---
Author Organization [facility] Address [address] [place] [address] Phone Care Team Providers Care Galley Stripper Name Role Phone Robert Mccollum Primary Care [...] 2 times daily (before meals). 03/07/2019 Active phentermine 15 mg capsule Take 1 capsule (15 mg total) by mouth 1 (one) time each day before breakfast. Max Daily Amount: 15 mg 30 each 07/28/2025 6 Active Active Problems Problem Noted Date Diagnosed Date Severe anxiety with panic 02/17/2025 Current mild episode of cathy r depressive disorder without prior episode (CMS/HCC V24) 11/03/2024 Other fatigue 11/03/2024 Hypokalemia 07/20/2024 Iron deficiency anemia 07/15/2023 Chronic pain of right knee 06/26/2023 Hypertensive disorder 04/28/2023 Anemia 09/24/2022 Overview (03/28/2025): Last Assessment & Plan: She has been taking ferrous sulfate, since surgery her vaginal bleeding stopped, new labs will be ordered Abnormal uterine bleeding 05/22/2022 Intramural, submucous, and subserous leiomyoma o f uterus 05/22/2022 Fibroadenoma of right breast in female 9 Breast calcifications on mammogram 10/14/2018 Overview (09/05/2024): Further testing needed Breast Bx 10/2018 was benign Benign essential hypertension 06/22/2018 Overview (03/28/2025): Last Assessment & Plan: Not at target, will increase hydralazine to 25mg ID, continue losartan and chlorthalidone, will place nephrology consult for reccomendations Primary osteoarthritis of both knees 06/22/2018 Seasonal allergies 06/22/2018 Encounters Date Type Department Care Team Description 07/27/2025 Telephone Bariatric Surgery - [place] [address] [facility] [address] [place] [address] Regine Castanon MD 07/25/2025 1:30 PM EDT Office Visit Bariatric Surgery - [place] [address] [address] Regine Castanon MD Class 1 obesity due to excess calories with body mass index (BMI) of 34.0 to 34.9 in adult, unspecified whether serious comorbidity present (Primary Dx) from Last 3 Months Immunizations Immunization Administration Dates Next Due Moderna SARS-CoV-2 COVID-19, mRNA, LNP-S, preservative free 03/27/2021,02/27/2021 Surgical History Surgery Date Site/Laterality Comments OTHER SURGICAL HISTORY 2000 PROCEDURE: PA LIG/TRNSXJ FLP TUBE ABDL/VAG APPR UNI/BI; COMMENT: PA SECTION 2000 PROCEDURE: PA DELIVERY ONLY; COMMENT: PA CHOLECYSTECTOMY 2004 PROCEDURE: PA LAPAROSCOPY SURG CHOLECYSTECTOMY; COMMENT: PA OTHER SURGICAL HISTORY 06/30/2022 PROCEDURE: PA LAPS TOTAL HYSTERECT 250 GM/< W/RMVL TUBE/OVARY; [...] Sign Reading Time Taken Comments Blood Pressure 124/80 07/25/2025 1:46 PM EDT Pulse 71 07/25/2025 1:46 PM EDT Temperature 36.6 C (97.8 F) 07/25/2025 1:46 PM EDT Respiratory Rate - - Oxygen Saturation - - Inhaled Oxygen Concentration - - Weight 93.4 kg (206 lb) 07/25/2025 1:46 PM EDT Height 165.1 cm (5' 5 ) 07/25/2025 1:46 PM EDT Body Mass Index 34.28 07/25/2025 1:46 PM EDT Plan of Treatment Upcoming Encounters Date Type Department Care Team (Late st Contact Info) Description 12/19/2025 9:15 AM EST Office Visit Bariatric Surgery - [address] [place] [address] Regine Castanon MD [address] [place] [phone] Health Maintenance Due Date Last Done Comments Colorectal Cancer Screening: Colonoscopy 1972 Hepatitis B Vaccines (1 of 3 - 19+ 3-dose series) 1991 Pneumococcal Vaccine: 50+ Years (1 of 2 - PCV) 1991 Zoster Vaccines (1 of 2) 1991 Breast Cancer Screening 11/11/2020 11/11/19 19, 11/02/2018, 10/09/2018 Social Influencers of Health Screening 09/17/2022 Depression Screening 10/19/2024 02/04/2024 Cervical Cancer Screening: P ap Smear 04/24/2025 04/24/2022, 02/02/2018, 02/02/2018 COVID-19 Vaccine (2024-2 6 season) 2025 11/05/2021, 03/27/2021, 02/27/2021 Influenza Vaccine (#1) 2025 , 09/24/2021, 08/26/2017 Hypertension/CHF/CAD Annual BMP Blood Test 07/10/2026 07/10/2025, 11/15/2024, 06/29/2024 Cholesterol Screening (Lipid Panel) 07/10/2030 07/10/2025, 06/29/2024, 06/29/2024 DTaP,Tdap,and Td Vaccines (2 - Td or Tdap) 11/03/2034 11/03/2024 RSV Immunization Adult Patients (1 - 1-dose 75+ series) 2047 HIV Screening Completed 06/10/2021, 06/10/2021 Hepatitis C Screening Completed 06/29/2024 , 06/29/2024 HIB Vaccines Aged Out No longer [...] * Annual BMP Blood Test (06/29/2024) Pathologist [facility] Annual BMP Blood Test Abstracted [facility] Provider HEALTH MAINTENANCE Final Result * Hepatitis C Screening (06/29/2024) [facility] Hepatitis C Screening Abstracted Result [facility] Provider HEALTH MAINTENANCE Final Result * Lipid panel (06/29/2024) [facility] LDL/HDL Ratio 0 Comment:No Interpretation Triglycerides 0 mg/dL Comment:No Interpretation Cholesterol 0 mg/dL Comment:No Interpretation HDL 0 mg/dL Comment:No Interpretation LDL Cholesterol 0 mg/dL Comment:No Interpretation Blood Venous blood specimen / Unknown Result [facility] Provider LAB BLOOD ORDERABLES Pina l Result * Depression Screening (02/04/2024) Pathologist [facility] Depression Screening Abstracted Result [facility] Provider HEALTH MAINTENANCE Final Result * Pap Smear (04/24/2022) [facility] Pap smear No Interpretation , Abstracted Result [facility] Provider HEALTH MAINTENANCE Final Result * HIV Screening (06/10/2021) [facility] HIV Screening Abstracted [facility] Provider HEALTH MAINTENANCE Final Result [...] the patient's daughter, who acted as a leak patcher for the patient, at 6:22 PM on [...] follow when results become available. Procedure Note Tavares Yvonne Barragan, DO - 11/23/2023 RESULTS ADDENDUM: BREAST, LEFT, [...] with the patient's daughter, who actedas a leak patcher for the patient, at 6:22 PM on [...] Most Recently Relevant to Health Maintenance Insurance MEDICAID - [place] Care Teams Galley Stripper Relationship Specialty Start Date End Date Robert Mccollum [address] [place], [place] PCP - General Internal Medicine 05/02/22
--- OUTSIDE RECORDS SUMMARY | 2025-08-14 13:40 | XMS_ITS | Clinical Summary ---
Author Organization [facility] Address [address] [place] [address] Care Team Providers Care Poultry Processing Supervisor Name Role Phone Robert Luz MD Primary Care Provider +1 -[phone] Allergies No known active allergies Social History [...] (1 of 2) 2022 Influenza Vaccine (#1) 2025 Pneumococcal Vaccine Aged Out No long er eligible based on patient's age to complete this topic RSV Ped < 20 months Aged Out No longe r eligible based on patient's age to complete this topic Care Teams Poultry Processing Supervisor Relationship Specialty Start Date End Date Robert Luz MD [address] [place] [address] PCP - General Internal Medicine 05/02/22
--- OUTSIDE RECORDS SUMMARY | 2025-08-14 13:40 | XMS_ITS | Clinical Summary ---
Author Organization [employer] Address [address] [place] [address] [address] [place] [address] Care Team Providers Care Offset Printing Operator Name Role Phone Robert Mccollum MD Primary Care Prov ider Allergies No known active allergies Medications * This document contains information received from the source organization and may not represent a complete record from that organization. ustekinumab (Stelara) injectionIndica tions:Psoriasis Inject 1 mL (90 mg) under the skin every 3 (three) months. Starter: 90 mg day 1, 90 mg day 30, 90 mg every 3 months. Prefilled syringes. 1 mL 2 07/15/20 23 Active cyclobenzaprine (Flexeril) 5 MG tabletIndicatio ns:Acute neck pain Take 1 tablet (5 mg) by mouth every 8 (eight) hours if needed for muscle spasms. 30 tablet 07/10/20 25 026 Active naproxen (Naprosyn) 500 MG tabletIndicatio ns:Acute neck pain Take 1 tablet by oral route twice daily as needed for moderate pain 30 tablet 1 07/10/20 25 Active chlorthalidone (Hygroton) 25 MG tablet Take 1 tablet (25 mg) by mouth Once per day. 90 tablet 3 07/21/20 25 026 Active losartan (Cozaar) 100 MG tabletIndicatio ns:Benign essential hypertension Take 1 tablet (100 mg) by mouth Once per day. 90 tablet 3 07/21/20 25 Active spironolactone (Aldactone) 100 MG tablet Take 1 tablet (100 mg) by mouth Once per day. 90 tablet 3 07/21/20 25 026 Active chlorthalidone (Hygroton) 25 MG tablet Take 1 tablet (25 mg) by mouth Once per day. 90 tablet 3 06/29/20 24 025 Discontinued(Re order (will not trigger notification to Pharmacy)) losartan (Cozaar) 100 MG tabletIndicatio ns:Benign essential hypertension Take 1 tablet (100 mg) by mouth Once per day. 90 tablet 3 06/29/20 24 025 Discontinued(Re order (will not trigger notification to Pharmacy)) Tirzepatide-Navi ght Management (Zepbound) 10 MG/0.5ML solution auto-injector Inject 10 mg under the skin 1 (one) time per week. 025 Discontinued spironolactone (Aldactone) 100 MG tablet Take 1 tablet (100 mg) by mouth Once per day. 90 tablet 3 02/17/20 25 025 Discontinued(Re order (will not trigger notification to Pharmacy)) Active Problems Problem Noted Date Diagnosed Date Psoriasis 07/21/2025 Assessment & Plan (07/21/2025 11:25 AM EDT): On jhonny, wants to get follow up closer to where she lives, will place referral to dermatology Pain in both lower extremities 05/17/2025 Assessment & Plan (05/17/2025 9:46 AM EDT): Will provide ibuprofen, call back if not improved in 5 days Severe anxiety with panic 02/17/2025 Assessment & [...] positive support received by her family and zoroastrian community. Pt will be referred for OP [...] positive support received by her family and zoroastrian community. Pt will be referred for OP [...] of right knee 06/26/2023 Assessment & Plan (03/22/2025 3:21 PM EDT): Will order a knee xray, no recent trauma, will also refer to ortho for evaluation Assessment & Plan (06/26/2023 2:38 PM EDT): [...] Benign essential hypertension 06/22/2018 Assessment & Plan (07/21/2025 11:24 AM EDT): Controlled, keep low sodium diet and exercise as tolerated, keep blood pressure log, follow up in 3 months Assessment & Plan (05/17/2025 9:44 AM EDT): Controlled, keep low sodium diet and exercise as tolerated, keep bp log, target <140/90 Assessment & Plan (02/16/2025 12:24 PM EDT): [...] 12:48 PM EDT): Continue with current regimen: Hydralazine 25mg TID Chlorthalidone 25mg daily Losartan 100mg daily Recently had appt with Nephrology for HTN and reports was started on new medication. Unsure name of med, but per FPSI rec, spironolactone 100mg daily was rx by [...] Assessment & Plan (05/07/2023 12:50 PM EDT): Acute on chronic flare, encouraged to continue with symptomatic management at home Currently established with Ortho, although not interested in further steroid injection at this time In agreement with referral to PT Encounters Date Type Department Care Team Description 07/21/2025 11:15 AM EDT Telemedicine [facility] [address] [place] [address] Robert Mccollum MD Psoriasis (Primary Dx); Benign essential hypertension 07/21/2025 Travel 07/20/2025 Telephone [facility] [address] [place] [address] Robert Mccollum MD chart prep 07/12/2025 Results Follow-Up [facility] [address] [place], [place] [phone] Carissa Monsalve FNP XR Cervical Spine 5 View 07/10/2025 1:45 PM EDT Office Visit [facility] [address] [place] [address] Carissa Monsalve FNP Acute neck pain (Primary Dx) 07/10/2025 Travel 07/10/2025 Telephone [facility] [address] [place] [address] Robert Mccollum MD Nurse Triage 05/17/2025 9:00 AM EDT Telemedicine [facility] [address] [place], [place] [phone] Robert Mccollum MD Benign essential hypertension (Primary Dx); Pain in both lower extremities 05/16/2025 Telephone [facility] [address] [place] [address] Robert Mccollum MD Chart Prep from Last 3 Months Immunizations Immunization Administration [...] housing situation today? I have sree padilla 03/22/[address] you li ve. Do you have problems with any of the following? None of the above 03/22/2025 Food Insecurity Answer Date Recorded Within the past 12 months, y ou worried that your food would run out before you got money to buy more: Never True 03/22/2025 Within the past 12 months,th e food you bought just didn't last and you didn't have enough money to get more: Never True 01/2025 Transportation Answer Date Recorded In the past 12 months, has l ack of transportation kept you from medical appts, meetings, work or from getting things needed for daily living? No 03/22/2025 Utilities Answer Date Recorded In the past 12 months, has t he electric, gas, oil or water company threatened to shut off services in your home? No 03/22/2025 Depression Answer Date Recorded Patient Health Questionnaire-2 Score 6 02/20/2025 Internet Access Answer Date Recorded Internet Access Q1 Yes 03/22/2025 Internet Access Q2 Not on file 03/22/2025 Comments Unknown Sex and Gender Information Value Date Recorded Sex Assigned at Female 08/18/2022 10:32 AM EDT Legal Sex Female 10:32 AM EDT Gender Identity Choose not to disclose 10:32 AM EDT Sexual Orientation Choose not to disclose 2021 10:32 AM EDT Last Filed Vital Signs Vital Sign Reading Time Taken Comments Blood Pressure 130/80 07/21/2025 10:47 AM EDT Pulse 78 07/10/2025 1:54 PM EDT Temperature 36.4 C (97.5 F) 07/10/2025 1:54 PM EDT Respiratory Rate 20 07/10/2025 1:54 PM EDT Oxygen Saturation 98% 07/10/2025 1:54 PM EDT Inhaled Oxygen Concentration - - Weight 93.8 kg (206 lb 12.8 oz) 07/10/2025 1:54 PM EDT Height 164 cm (5' 4.57 ) 07/10/2025 1:54 PM EDT Body Mass Index 34.88 07/10/2025 1:54 PM EDT Plan of Treatment Health Maintenance Due Date Last Done Comments CT Colonography 1972 Colonoscopy 1972 Colorectal Cancer Screening 1972 Dental X-Ray: Full Mouth 1972 FIT DNA/Cologuard 1972 FIT 1972 FOBT 1972 Sigmoidoscopy 1972 Hepatitis B Vaccines (1 of 3 - 19+ 3-dose series) 1991 Pneumococcal Vaccine: 50+ Years (1 of 1 - PCV) 2022 Zoster Vaccines (1 of 2) 2022 Dental Prophylaxis 08/29/2023 02/25/2023 Dental Oral Exam 09/18/2023 03/17/2023 Dental X-Ray: Bitewings 03/18/2024 03/17/2023 COVID-19 Vaccine ( season) 2025 11/05/2021, 03/27/2021, 02/27/2021 Influenza Vaccine (#1) 2025 , 09/24/2021, 08/26/2017 Depression Monitoring 08/23/2025 02/20/2025, 025 Alcohol/Substance Use Screening 03/22/2026 03/22/2025 SDOH Screening 03/22/2026 03/22/2025 Disability Screening 07/10/2026 07/10/2025 Tobacco Screening 07/11/2026 07/11/2025 Mammogram 02/15/2027 02/15/2025, 01/18, 10/03/2022 Lipid Panel 07/10/2030 07/10/2025, 06/19, 01/11/2024, Additional history exists DTaP/Tdap/Td Vaccines (2 - [...] Procedure Name Priority Date/Time Associated Diagnosis Comments XR CERVICAL SPINE 5 VIEW Routine 07/10/2025 3:20 PM EDT Acute neck pain TSH W/REFLEX TO FT4 Routine 07/10/2025 2 :30 PM EDT Benign essential hypertension LIPID PANEL, STANDARD Routine 07/10/2025 2:30 PM EDT Benign essential hypertension COMPREHENSIVE METABOLIC PANEL Routine 07/10/2025 2:30 PM EDT Benign essential hypertension BI MAMMOGRAM SCREENING TOMOSYNTHESIS BILATERAL Routine 02/15/2025 [...] Recently Relevant to Health Maintenance Results * XR Cervical Spine 5 View (07/10/2025 3:20 PM EDT) Anatomical Region Laterality Modality Spine, C-spine Radiographic Stephany ging 07/10/2025 3:20 PM EDT Narrative 07/10/2025 3:43 PM EDT [address] [address] XRay Report Signed Patient: Susan Scherer MR#: [id number] : 1970 Acct:[id number] Age/Sex: 55 / F ADM Date: 07/10/25 Loc: JANINE Attending Dr: Robert Alejandro MD Ordering Physician: [facility] Date of Service: 07/10/25 Procedure(s): XR cervical spine 5V Accession Number(s): [id number] cc: [facility] Reason for Exam: 55 y.o F with acute neck pain, point tenderness EXAMINATION: XR CERVICAL SPINE 4-5 VIEWS HISTORY: 55 y.o F with acute neck pain, point tenderness COMPARISON: There are no prior studies available for comparison. FINDINGS: AP, lateral, and open-mouth odontoid views of the cervical spine are submitted. Osseous mineralization is normal. Seven cervical vertebral bodies are identified maintaining normal height and alignment without evidence of fracture or subluxation. There is mild degenerative disc disease at the C4-5 and C5-6 levels with disc space narrowing and osteophyte formation. The neural foramina patent bilaterally. The odontoid and lateral masses of C1 are intact. There is no prevertebral soft tissue swelling. XR/XR cervical spine 5V IMPRESSION: Mild degenerative disc disease as described. Electronically signed by: Brennen Bond MD 07/10/2025 03:40 PM EDT RP Dictated By: Brennen Bond MD Signed By: <Electronically signed by Brennen Bond MD in OV> 07/10/25 1540 DD/ 1520 TD/TT: 07/10/25 1530 Financial Administrative Assistant: Procedure Note Donotuseinterpreter, Image - 07/10/[address] [address] XRay Report Signed [facility] [id number] : 1970Acct:[id number] Age/Sex: 55 / FADM Date: 07/10/25 Loc: JANINE Attending Dr: Robert Alejandro MD Ordering Physician: [facility] Date of Service: 07/10/25 Procedure(s): XR cervical spine 5V Accession Number(s): [id number] cc: [facility] Reason for Exam: 55 y.o F with acute neck pain, point tenderness EXAMINATION: XR CERVICAL SPINE 4-5 VIEWS HISTORY: 55 y.o F with acute neck pain, point tenderness COMPARISON: There are no prior studies available for comparison. FINDINGS: AP, lateral, and open-mouth odontoid views of the cervical spine are submitted. Osseous mineralization is normal. Seven cervical vertebral bodies are identified maintaining normal height and alignment without evidence of fracture or subluxation. There is mild degenerative disc disease at the C4-5 and C5-6 levels with disc space narrowing and osteophyte formation. The neural foramina patent bilaterally. The odontoid and lateral masses of C1 are intact. There is no prevertebral soft tissue swelling. XR/XR cervical spine 5V IMPRESSION: Mild degenerative disc disease as described. Electronically signed by: Brennen Bond MD 07/10/2025 03:40 PM EDT RP Dictated By: Brennen Bond MD Signed By: <Electronically signed by Brennen Bond MD in OV> 07/10/25 1540 DD/ 1520 TD/TT: 07/10/25 1530 Financial Administrative Assistant: [facility] CROZE MACHINE OPERATOR IMG XR PROCEDURES Final Resul t * TSH W/Reflex to FT4 (07/10/2025 2:30 PM EDT) TSH reflex Free T4 1.98 0.32 - 4.0 uIU/mL [facility] Blood Venous blood specimen / Unknown 07/10/2025 2:30 PM EDT 07/10/2025 6:09 PM EDT Robert Alejandro MD LAB BLOOD ORDERABL ES Final Result [facility] [address] [place] [address] [phone] * (ABNORMAL) Lipid Panel, Standard (07/10/2025 2:30 PM EDT) Triglycerides 108 <150 mg/dL [facility] Comment:Desirable Triglyceri de: less than 150 mg/dLBorderline High Triglyceride 150-199 mg/dLHigh Triglyceride: 200-499 mg/dLVery High Triglyceride: greater than or equal to 5OO mg/dL Cholesterol 134 <200 mg/dL [facility] Comment:Desirable Cholestero l: less than 200 mg/dLBorderline High Cholesterol: 200-239 mg/dLHigh Cholesterol: greater than 239 mg/dL LDL Cholesterol Calculated 83 <100 mg/dL [facility] Comment:Desirable LDL: less than 100 mg/dLNear Optimal/Above Optimal LDL: 110- 129 mg/dLBorderline High LDL: 130-159 mg/dLHigh LDL: 160-189 mg/dLVery High LDL: greater than or equal to 190 mg/dL HDL Cholesterol 30(L) >40 mg/dL [facility] Comment:Desirable HDL: great er than 40 mg/dL Note: This HDL assay may give artificially low results in patients with liver disease. Blood Venous blood specimen / Unknown 07/10/2025 2:30 PM EDT 07/10/2025 6:09 PM EDT us Robert Alejandro MD LAB BLOOD ORDERABL ES Final Result [facility] [address] [place] [address] [phone] * (ABNORMAL) Comprehensive Metabolic Panel (07/10/2025 2:30 PM EDT) Sodium 139 135 - 145 mmol/L [facility] Potassium 4.4 3.3 - 5.1 mmol/L [facility] Chloride 105 96 - 108 mmol/L [facility] Carbon Dioxide 27 22 - 29 mmol/L [facility] Anion Gap 11(L) 12 - 20 [facility] Urea Nitrogen (BUN) 22(H) 9 - 16 mg/dL [facility] Creatinine, Serum 0.88 0.5 - 1.4 mg/dL [facility] Estimated Glomerular Filt Rate >60 [facility] Comment:Chronic Kidney Disea se: Estimated GFR < 60 mL/min/1.11k6Xnbnes Kidney Disease: Estimated GFR < 15 mL/min/1.73m2 Glucose 76 60 - 115 mg/dL [facility] Calcium 9.7 8.4 - 10.2 mg/dL [facility] Bilirubin, Total 0.2 0.0 - 1.0 mg/dL [facility] Aspartate Amino Transferase 23 5 - 31 U/L [facility] Alanine Aminotransferase 21 0 - 31 U/L [facility] Total Protein 7.5 6.5 - 8.0 g/dL [facility] Albumin Level 4.6 3.5 - 5.0 g/dL [facility] Alkaline Phosphatase 76 39 - 117 U/L [facility] Blood Venous blood specimen / Unknown 07/10/2025 2:30 PM EDT 07/10/2025 6:09 PM EDT us Robert Alejandro MD LAB BLOOD ORDERABL ES Final Result Performing Organization Address City/State/[facility] Co de Phone Number [facility] [address] [place] [phone] * BI Mammogram Screening Tomosynthesis Bilateral (02/15/2025 10:00 AM EDT) Anatomical Region Laterality Modality Breast Bilateral Mammography 02/15/2025 10:0 0 AM EDT Narrative 02/20/2025 5:13 PM EDT [facility] [address] [place] [address] Mammography Report Signed Patient: Susan Scherer MR#: [id number] : 1970 Acct:[id number] Age/Sex: 54 / F ADM Date: 02/15/25 Loc: ELDAO Attending Dr: Robert Alejandro MD Ordering Physician: Robert Mccollum MD Res ults: 2Benign Findings Date of Service: 02/15/25 Follow Up: 1 Year From Orig inal Mammogram Procedure(s): MM tomosynthesis screening BI Accession Number(s): [id number] cc: Robert Mccollum MD EXAMINATION: MM SCREENING [...] 02/20/25 1711 DD/ 1000 TD/TT: 02/15/25 1015 Financial Administrative Assistant: Procedure Note Donotuseinterpreter, Image - 02/20/2025 [facility] [address] [place] [address] Mammography Report Signed [facility]#: [id number] : 1970Acct:[id number] Age/Sex: 54 / FADM Date: 02/15/25 Loc: HO.MAMMO Attending Dr: Robert Alejandro MD Ordering Physician: Robert Mccollum ults: 2Benign Findings Date of Service: 02/15/25Follow Up: 1 Year From Orig inal Mammogram Procedure(s): MM tomosynthesis screening BI Accession Number(s): [id number] cc: Robert Mccollum MD EXAMINATION: MM SCREENING [...] Rachel Crocker DO 02/20/2025 05:11 PM EDT Dictated By: Rachel Crocker DO Signed By: <Electronically signed by Rachel Crocker DO in OV> 02/20/25 1711 DD/ 1000 TD/TT: 02/15/25 1015 Financial Administrative Assistant: Robert Alejandro MD IM BI PROCEDURES Final Result * Hepatitis C Antibody with Reflex to HCV, RNA, Quantitative, Real-Time PCR (06/29/2024 11:30 AM EDT) Hepatitis C Antibody Nonreactive Nonreactive [facility] Comment:Antibodies to HCV no t detected; does not exclude early acuteHCV infection. Blood Venous blood specimen / Unknown 06/29/2024 11:30 AM EDT 06/29/2024 1:46 PM EDT Robert Alejandro MD LAB BLOOD ORDERABL ES Final Result [facility] [address] [place] [address] [phone] * HIV 1/2 ANTIGEN/ANTIBODY,FOURTH GENERATION W/RFL (06/10/2021 11:45 AM EDT) HIV-1/2 ANTIGEN AND ANTIBODIES, 4TH GENERATION W/ REFLEX NON-REACT LINDA NON-REACT LINDA [facility] Comment: HIV-1 antigen and HIV-1/HIV-2 antibodies were not detected. There is no laboratory evidence of HIV infection. PLEASE NOTE: This information has been disclosed to you from records whose confidentiality may be protected by state law. If your state requires such protection, then the state law prohibits you from making any further disclosure of the information without the specific written consent of the person to whom it pertains, or as otherwise permitted by law. A general authorization for the release of medical or other information is NOT sufficient for this purpose. For additional information please refer to http://education.[employer]/faq/HSB951 (This link is being provided for informational/ educational purposes only.) The performance of this assay has not been clinically validated in patients less than 2 years old. 06/10/2021 11:4 5 AM EDT Robert Alejandro MD LAB BLOOD ORDERABL ES Final Result [facility] [address] * HPV mRNA E6/E7 (09/18/2020 4:09 PM EST) HPV nRNA E6/E7 Not Detected Not Detected [facility] Comment: This test was performed using the APTIMA HPV Assay ([employer] This assay detects E6/E7 viral messenger RNA (mRNA) from 14 high-risk HPV types (16,18,31,33,35,39,45,51,52,56,58,59,66,68). The analytical performance characteristics of this assay have been determined by [employer]. The modifications have not been cleared or approved by the FDA. This assay has been validated pursuant to the CLIA regulations and is used for clinical purposes. 09/18/2020 4:09 PM EST us Floresita Thalia CN LAB BLOOD ORDERABLES Pina l Result [facility] [address] [place] [address] * Pap Smear (09/18/2020) Pap smear PERFORMED us Historical Provider MD HEALTH MAINTENANCE Final Result from Last 3 Months or Most Recently Relevant to Health Maintenance Insurance [employer] DENTAL - HSN PARTIAL (MEDICAID) Care Teams Offset Printing Operator Relationship Specialty Start Date End Date Robert Mccollum MD [address] [place] [phone] PCP - General Internal Medicine 02/24/20
--- OUTSIDE RECORDS SUMMARY | 2025-08-14 13:40 | XMS_ITS | Clinical Summary ---
Author Organization [facility] Address [address] [phone] Phone Care Team Providers Care Applications Processor Name Role Phone Robert Luz Primary Care Provider [phone] Allergies No known active allergies Medications acetaminophen (TYLENOL 8 HOUR) 650 MG 8 hr tablet Take 2 tablets by mouth Active chlorthalidone 25 MG tablet Take 1 tablet by mouth 1 (one) time each day 0 Active ferrous sulfate 325 (65 Fe) MG EC tablet Take 1 tablet by mouth in the morning and 1 tablet in the evening. Active omeprazole (PriLOSEC) [address] capsule Take 1 capsule by mouth Active spironolactone (Aldactone) 100 MG tabletIndicatio ns:Hypertensive disorder Take 1 tablet (100 mg total) by mouth 1 (one) time each day 90 tablet 3 4 Active losartan (COZAAR) 100 MG tabletIndicatio ns:Hypertensive disorder Take 1 tablet (100 mg total) by mouth in the morning. 90 tablet 3 5 07/19/20 26 Active losartan (COZAAR) 100 MG tablet Take 100 mg by mouth in the morning. 3 07/19/20 25 Discontinu ed(Reorder (does not appear on AVS)) Active Problems Problem Noted Date Diagnosed Date [...] bilateral 06/22/2018 06/08/2023 Seasonal allergy 06/22/2018 06/08/2023 Encounters Date Type Department Care Team Description 07/19/2025 10:00 AM EDT Office Visit [facility] [address] [phone] Althea Crabtree ARNP Hypertensive disorder (Primary Dx) from Last 3 Months Immunizations Immunization Administration Dates Next Due Influenza, [...] Sign Reading Time Taken Comments Blood Pressure 120/74 07/19/2025 10:07 AM EDT Pulse 60 07/19/2025 9:52 AM EDT Temperature - - Respiratory Rate - - Oxygen Saturation 100% 07/19/2025 9:52 AM EDT Inhaled Oxygen Concentration - - Weight 93 kg (205 lb) 07/19/2025 9:52 AM EDT Height - - Body Mass Index - - Plan of Treatment Upcoming Encounters Date Type Department Care Team (Late st Contact Info) Description 07/19/2026 10:00 AM EDT Office Visit [facility] [address] [phone] Althea Crabtree ARNP [address] [phone] Health Maintenance Due Date Last Done Comments Breast Cancer Screening 1972 Hepatitis B Vaccine (1 of 3 - 19+ 3-dose series) 1991 Pneumococcal Vaccine: 50+ Ye ars (1 of 2 - PCV) 1991 Colorectal Cancer Screening: Annual FOBT 2021 Colorectal Cancer Screening: Colonoscopy 2021 Colorectal Cancer Screening: Sigmoidoscopy 2021 Influenza Vaccine (#1) 2025 4, 09/24/2021, 08/26/2017 Insurance Medicaid [place] Care Teams Applications Processor Relationship Specialty Start Date End Date Robert Luz: [phone] [address] [place] [address] PCP - General Internal Medicine 01/15/23
--- OUTSIDE RECORDS SUMMARY | 2025-08-14 13:40 | XMS_ITS | Encounter Summary ---
Author Organization [employer] Address [address] [place] [address] 7 [place] [address] Care Team Providers Care Svp Operations Name Role Phone Robert Mccollum MD Primary Care Prov ider Encounter Details Date Type Department Care Team ([facility] st Contact Info) Description 06/10/2023 Orders Only [facility] [address] [place] [address] Robert Mccollum MD [address] [place] [address] Social History Tobacco Use Types Packs/Day Years [...] documented as of this encounter Care Teams Svp Operations Relationship Specialty Start Date End Date Robert Mccollum MD [address] [place] [address] PCP - General Internal Medicine 02/24/20 documented as of this encounter
--- OUTSIDE RECORDS SUMMARY | 2025-08-14 13:40 | XMS_ITS | Encounter Summary ---
Author Organization [employer] Address [address] [place] [address] [address] [place] [address] Care Team Providers Care Brick Dropper Name Role Phone Robert Mccollum MD Primary Care Prov ider Encounter Details Date Type Department Care Team ([facility] st Contact Info) Description 11/12/2022 Telephone [facility] [address] [place], [place] [phone] Robert Mccollum MD [address] [place], [place] [phone] Social History Tobacco Use Types Packs/Day Years [...] AM EST Tc from pt calling to [facility] requesting a folic acid medication that was talked on yesterday appt with Dr. Luz. Air Bag Buffer see on assessment/plan ( - folic acid 1 mg in sodium chloride 0.9 %50 mL IVPB; Infuse 1 mg into a venous catheter 1 (one) time for 1 dose.) Air Bag Buffer is confused also ptplease contact pt to clarify. Air Bag Buffer check but is no script on [facility] . PCP DR. Luz [...] documented as of this encounter Care Teams Brick Dropper Relationship Specialty Start Date End Date Robert Mccollum MD [address] [place] [phone] PCP - General Internal Medicine 02/24/20 documented as of this encounter
--- OUTSIDE RECORDS SUMMARY | 2025-08-14 13:40 | XMS_ITS | Encounter Summary ---
Author Organization [employer] Address [address] [place] [address] 7 [place] [address] Care Team Providers Care Boat Captain Name Role Phone Robert Mccollum MD Primary Care Prov ider Encounter Details Date Type Department Care Team ([facility] st Contact Info) Description 11/05/2022 Abstract [facility]EDS [address] [place], [place] [phone] Robert Mccollum MD [address] [place] [address] Social History Tobacco Use Types Packs/Day Years [...] documented as of this encounter Care Teams Boat Captain Relationship Specialty Start Date End Date Robert Mccollum MD [address] [place] [id number] PCP - General Internal Medicine 02/24/20 documented as of this encounter
--- OUTSIDE RECORDS SUMMARY | 2025-08-14 13:41 | XMS_ITS | Encounter Summary ---
Author Organization [employer] Address [address] [place] [address] 7 [place] [address] Care Team Providers Care Cashier Tube Room Name Role Phone Robert Mccollum MD Primary Care Prov ider Encounter Details Date Type Department Care Team ([facility] st Contact Info) Description 04/28/2023 Orders Only [facility] MED & PEDS [address] [place], [place] [phone] David Morataya MD [address] [place] [address] Psoriasis (Primary Dx) Social History Tobacco Use [...] documented as of this encounter Care Teams Cashier Tube Room Relationship Specialty Start Date End Date Robert Mccollum MD [address] [place] [phone] PCP - General Internal Medicine 02/24/20 documented as of this encounter
--- OUTSIDE RECORDS SUMMARY | 2025-08-14 13:41 | XMS_ITS | Encounter Summary ---
Author Organization [employer] Address [address] [place] [address] 7 [place] [address] Care Team Providers Care Analysis Consultant Name Role Phone Robert Mccollum MD Primary [...] on filedocumented in this encounter Care Teams Analysis Consultant Relationship Specialty Start Date End Date Robert Mccollum MD [address] [place] [phone] PCP - General Internal Medicine 02/24/20 documented as of this encounter
--- OUTSIDE RECORDS SUMMARY | 2025-08-14 13:41 | XMS_ITS | Encounter Summary ---
Author Organization [employer] Address [address] [facility] [address] [place] [address] Care Team Providers Care Medical Pathologist Name Role Phone Robert Mccollum MD Primary Care Prov ider Encounter Details Date Type Department Care Team ([facility] st Contact Info) Description 10/08/2022 Orders Only [facility] MEDICINE [address] [place] [address] David Morataya MD [address] [place] [address] Psoriasis Social History Tobacco Use Types Packs/Day [...] documented as of this encounter Care Teams Medical Pathologist Relationship Specialty Start Date End Date LuzRobert Gonzales MD [address] [place] [id number] PCP - General Internal Medicine 02/24/20 documented as of this encounter
== END 2025-08-14 11:31 | disposition home or self-care (01) ==
LOC: HO.HOS 10:57
PROVIDERS: Visit Provider Orthopaedic Surgery
DX: M17.0 Bilateral primary osteoarthritis of knee (principal)
CPT/HCPCS: 99212

== ENCOUNTER → 2025-08-14 10:56 | Outpatient (BNVA) | payer MEDICAID, SELFPAY | PROVIDERS: Visit Provider Orthopaedic Surgery | DX: M17.0 Bilateral primary osteoarthritis of knee (principal) | CPT/HCPCS: 99212 ==